=== PATIENT | female | born 1965 | race Caucasian/White ===

== ENCOUNTER 2020-05-28 15:11 | Emergency (ER) | payer OTHER ==
--- OUTSIDE RECORDS SUMMARY | 2020-05-28 15:14 | XMS REPORT | Clinical Summary ---
:1965 Author Organization [facility] Address [address] [place] [address] Care Team Providers Name Role Phone Can Gaston MD Primary Care Provider Allergies Active Allergy Reactions Severity Noted Date Comments Divalproex Swelling 11/29/2018 Shortness of br east and choking Valproate Sodium Swelling High 05/13/2018 Tongue swel ling Medications Medication Sig Dispensed Refills Start End Date Status Date gabapentin Take 400 mg by 0 Acti ve (NEURONTIN) 400 mg mouth 4 (four) capsule times a day. HYDROcodone-acetam Take 1 tablet by 0 Active inophen (NORCO) mouth every 4 10-325 mg per (four) hours as tabletIndications: needed for acute pain moderate pain .acute pain. atorvastatin Take 20 mg by 0 Act dillon (LIPITOR) 20 mg mouth daily. tablet Default OP ins escitalopram Take 20 mg by 0 Act dillon (LEXAPRO) 20 MG mouth daily. tablet carBAMazepine XR Take 500 mg by 0 Active (TEGretol XR) 100 mouth daily. MG 12 hr tablet dextroamphetamine- Take 30 mg by 0 Active amphetamine mouth 2 (two) (ADDERALL) 30 mg times a day. tablet DULoxetine Take 50 mg by 0 Activ e (CYMBALTA) 30 MG mouth daily. capsule ARIPiprazole Take 5 mg by 0 Acti ve (ABILIFY) 5 MG mouth daily. tablet ARIPiprazole Take 10 mg by 0 Act dillon (ABILIFY) 10 MG mouth daily. tablet pantoprazole Take 1 tablet 60 tablet 0 Act dillon (PROTONIX) 40 MG (40 mg total) by 0 EC tablet mouth 2 (two) times a day before meals. ferrous sulfate Take 1 tablet 60 tablet 0 Active 325 (65 FE) MG EC (325 mg total) 0 tablet by mouth 2 (two) times a day. fentaNYL Place 1 patch on 0 11/24/19 Dis continued (DURAGESIC) 100 the skin every 20 (Stop Taking at mcg/hrIndications: third day .acute Discharge) acute pain pain. lisinopriL Take 20 mg by 0 11/24/19 Disco ntinued (PRINIVIL) 20 mg mouth daily. 20 (Stop Taking at tablet Discharge) chlorproMAZINE Take 25 mg by 0 11/24/19 D iscontinued (THORAZINE) 25 MG mouth as needed 20 (Stop Taking at tablet for nausea. Discharg e) promethazine Take 20 mg by 0 11/24/19 Dis continued (PHENERGAN) 12.5 mouth every 6 20 (Stop Taking at MG tablet (six) hours as Disch arge) needed for nausea or vomiting. furosemide (LASIX) Take 30 mg by 0 0 Discontinued 20 mg tablet mouth as needed. 20 (Stop Taking at Discharge) pantoprazole Take 40 mg by 0 11/24/19 Dis continued (PROTONIX) 40 MG mouth 2 (two) 20 (Reorder) EC tablet times a day. polyethylene Take 17 g by 30 each 0 12/24/19 Expi red glycol (MIRALAX) mouth daily as 0 20 17 gram packet needed for constipation for up to 30 days. Active Problems Problem Noted Date GI bleed 11/22/2019 Encounters Date Type Specialty Care Team Description 11/26/2019 Patient Outreach Quality Elio Gardner Paola 11/26/2019 Patient Outreach Quality Elio Gardner Paola 11/26/2019 Patient Outreach Quality Gilma Renteria RN 11/25/2019 Patient Outreach Quality Gilma Renteria RN 11/22/2019 - Hospital Encounter Cardiology Chaves, Gastroint estinal 11/24/2019 MD Christiano hemorrhage with Rocio Zeng (Primary Dx) MD Elie 11/21/2019 Travel after 05/28/2019 Surgical History Surgery Date Site/Laterality Comments COLON SURGERY Medical History Medical History Date Comments Peptic ulceration Seizures (HCC) Hypertension Depression Family History Medical History Relation Name Comments Cancer Mother Relation Name Status Comments Mother Social History Tobacco Use Types Packs/Day Years Used Date Former Smoker Cigarettes 27 Sex Assigned at Date Recorded Not on file Last Filed Vital Signs Vital Sign Reading Time Taken Comments Blood Pressure 115/68 11/24/2019 7:56 AM CDT Pulse 81 11/24/2019 7:56 AM CDT Temperature 36.6 C (97.8 F) 11/24/2019 7:56 AM CDT Respiratory Rate 20 11/24/2019 7:56 AM CDT Oxygen Saturation 96% 11/24/2019 7:56 AM CDT Inhaled Oxygen Concentration - - Weight 84.9 kg (187 lb 1.6 oz) 11/24/2019 4:38 AM CDT Height 165.1 cm (5' 5") 11/22/2019 8:14 AM CDT Body Mass Index 31.14 11/22/2019 8:14 AM CDT Plan of Treatment Health Maintenance Due Date Last Done Comments COVID-19 VACCINE (1 of 2) 1983 CERVICAL CANCER SCREENING 1988 BREAST CANCER SCREENING 2017 COLONOSCOPY SCREENING 2017 SHINGLES VACCINES (#1) 2017 INFLUENZA VACCINE 12/06/2019 Procedures Procedure Name Priority Date/Time Associated Comments Diagnosis US DUPLEX VENOUS UPPER STAT 11/24/2019 3:31 R esults for this EXTREMITY LEFT AM CDT procedure are in the results section. ESTIMATED GFR Routine 11/24/2019 1:50 Results fo r this AM CDT procedure are i n the results section. BASIC METABOLIC PANEL Routine 11/24/2019 1:50 Re sults for this AM CDT procedure are i n the results section. HC COMPLETE BLD COUNT Routine 11/24/2019 1:50 Re sults for this W/AUTO DIFF AM CDT procedure are i n the results section. HC COMPLETE BLD COUNT Routine 11/23/2019 6:05 Re sults for this W/AUTO DIFF AM CDT procedure are i n the results section. ESTIMATED GFR Routine 11/23/2019 4:00 Results fo r this AM CDT procedure are i n the results section. BASIC METABOLIC PANEL Routine 11/23/2019 4:00 Re sults for this AM CDT procedure are i n the results section. POC GLUCOSE Routine 11/22/2019 11:48 Results for this AM CDT procedure are i n the results section. VITAMIN B12 LEVEL Routine 11/22/2019 10:19 Result s for this AM CDT procedure are i n the results section. TOTAL IRON BINDING Routine 11/22/2019 10:19 Resul ts for this CAPACITY AM CDT procedure are i n the results section. FERRITIN LEVEL Routine 11/22/2019 10:19 Results f or this AM CDT procedure are i n the results section. FOLATE LEVEL Routine 11/22/2019 10:19 Results for this AM CDT procedure are i n the results section. URINALYSIS SCREEN AND Routine 11/22/2019 9:15 Re sults for this MICROSCOPY, WITH REFLEX AM CDT proc edure are in TO CULTURE the results section. URINE CULTURE Routine 11/22/2019 9:15 Results fo r this AM CDT procedure are i n the results section. POC GLUCOSE Routine 11/22/2019 9:14 Results for this AM CDT procedure are i n the results section. PREPARE RBC STAT 11/22/2019 3:30 Results for this AM CDT procedure are i n the results section. ESTIMATED GFR Routine 11/22/2019 3:30 Results fo r this AM CDT procedure are i n the results section. TYPE AND SCREEN STAT 11/22/2019 3:30 Results for this AM CDT procedure are i n the results section. TROPONIN STAT 11/22/2019 3:30 Results for this AM CDT procedure are i n the results section. T4, FREE Routine 11/22/2019 3:30 Results for this AM CDT procedure are i n the results section. THYROID STIMULATING Routine 11/22/2019 3:30 Resu lts for this HORMONE AM CDT procedure are i n the results section. PHOSPHORUS LEVEL Routine 11/22/2019 3:30 Results for this AM CDT procedure are i n the results section. MAGNESIUM LEVEL Routine 11/22/2019 3:30 Results for this AM CDT procedure are i n the results section. COMPREHENSIVE METABOLIC Routine 11/22/2019 3:30 Results for this PANEL AM CDT procedure are i n the results section. PARTIAL THROMBOPLASTIN Routine 11/22/2019 3:30 R esults for this TIME (PTT) AM CDT procedure are i n the results section. PROTHROMBIN TIME WITH Routine 11/22/2019 3:30 Re sults for this INR AM CDT procedure are i n the results section. COVID-19 QUALITATIVE STAT 11/22/2019 3:30 Res ults for this PCR AM CDT procedure are i n the results section. COMPLETE BLD COUNT Routine 11/22/2019 2:53 Re sults for this W/AUTO DIFF AM CDT procedure are i n the results section. after 05/28/2019 Results Us duplex venous upper extremity (11/24/2019 3:31 AM CDT) Specimen Narrative Performed At [facility] Vascular U ltrasound Laboratory Upper Extr emity Venous Report [id number] [facility], [place] [address], [place] [address] Pat.Name: ANAMARIA ERICKSON Pat.ID: [id number] .Date: 11/24/2019 Refer.MD: ROCIO VILLANUEVA MD Exam Time: 3:16:00 AM Study Type:U E Venous Height: 65in Weight: 185lb BSA: 1.92 m2 Ag e: 1965,54Y Sex: FEMALE Sonogrphr: JOSE MIGUEL Darnell, RDCS, RVT Pat. Stat.:Inpatient Room: [address] Tape Vol: KG, CPT - 4: 68649 Echo Event ID:[id number] Order ID: [id number] Reason for Study:Left arm swelling and p ain, DVT suspected. Procedures: Colorflow, Grayscale/2D, Pul sed wave Doppler Race: C SUMMARY: DUPLEX SCAN OBSERVATIONS Right Left IJ Normal Subclavian Normal Normal Axillary Normal Brachial Normal Basilic Normal Cephalic Normal LEFT: There is normal compressibility an d no evidence of echogenic material noted within the lumen of the v isualized veins. Colorflow and Doppler signals are normal. PRELIMINARY FINDINGS 1. No evidence of venous thrombosis of t he visualized veins. PHYSICIAN INTERPRETATION Venous examination of the left upper ext remity and neck demonstrated no evidence of venous thrombosis. FINDINGS: Signed 11/24/2019 09:32 AM Fili Cowan MD, RPVI Procedure Note Interface, Radiology Results In - 2019 9:32 AM CDT Vascular Ultrasound Laboratory Upper Extremity Veno us Report [id number] [address] Pat.Name: ANAMARIA ERICKSON Pat.I D: [id number] .Date: 11/24/2019 Refer .MD: ROCIO VILLANUEVA MD Exam Time: 3:16:00 AM Study Type:UE Venous Height: 65in Weigh t: 185lb BSA: 1.92 m2 Age: 14 1965,54Y Sex: FEMALE Sonogrphr: JOSE MIGUEL Darnell, RDCS, RVT Pat. Stat.:Inpatient Room: [address] Tape Vol: KG, CPT - 4: 97470 Echo Event ID:[id number] Order ID: [id number] Reason for Study:Left arm swelling and p ain, DVT suspected. Procedures: Colorflow, Grayscale/2D, Pul sed wave Doppler Race: C SUMMARY: DUPLEX SCAN OBSERVATIONS Right Left IJ Normal Subclavian Normal Normal Axillary Normal Brachial Normal Basilic Normal Cephalic Normal LEFT: There is normal compressibility an d no evidence of echogenic material noted within the lumen of the v isualized veins. Colorflow and Doppler signals are normal. PRELIMINARY FINDINGS 1. No evidence of venous thrombosis of t he visualized veins. PHYSICIAN INTERPRETATION Venous examination of the left upper ext remity and neck demonstrated no evidence of venous thrombosis. FINDINGS: Signed 11/24/2019 09:32 AM Fili Cowan MD, RPVI Performing Organization Address City/[facility]/ZIP Code [facility] [address] [place] [address] Estimated GFR (11/24/2019 1:50 AM CDT)Only the most recent of3 resultswithin the time period is included. Estimated GFR 52 (A) mL/min/1.73 [facility] Comment: m2 HOSPITAL Catergory Units Interpretation G1 >=90 Normal or high G2 60-89 Mildly decreased G3a 45-59 Mildly to moderately decreas ed G3b 30-44 Moderately to severely decre ased G4 15-29 Severely decreased G5 <15 Kidney failure The eGFR was calculated using the Chronic Kidney Disea se Epidemiology Collaboration (CKD-EPI) equation. Interpretation is based on recommendations of the National Kidney Foundation-Kidney Disease Outcomes Kenny lity Initiative (NKF-KDOQI) published in 2014. Specimen Performing Organization Address [facility] e Number [facility] DEPARTMENT OF PATHOLOGY AND [address] [place], [place] [phone] [facility] [address] [place] [address] CBC with platelet and differential (11/24/2019 1:50 AM CDT)Only the most recent of3 resultswithin the time period is included. WBC 5.76 4.50 - 11.00 [facility] k/uL [facility] RBC 3.37 (L) 4.20 - 5.50 [facility] m/uL [facility] HGB 10.1 (L) 12.0 - 16.0 [facility] g/dL [facility] HCT 31.6 (L) 37.0 - 47.0 % [facility] MCV 93.8 82.0 - 100.[address] [facility] MCH 30.0 27.0 - 34.[address] [facility] MCHC 32.0 31.0 - 37.0 [facility] RDW - SD 54.7 37.0 - 55.[address] [facility] MPV 9.7 8.8 - 13.[address] [facility] Platelet count 355 150 - 400 k/uL [facility] Nucleated RBC 0.00 /[address] [facility] Neutrophils 49.5 39.0 - 69.0 % [facility] Lymphocytes 21.5 (L) 25.0 - 45.0 % [facility] Monocytes 24.5 (H) 0.0 - 10.0 % [facility] Eosinophils 3.0 0.0 - 5.0 % [facility] Basophils 0.5 0.0 - 1.0 % [facility] Immature granulocytes 1.0Comment: 0.0 - 1.0 % [facility] "Immature HOSPITAL granulocytes" (promyelocytes , myelocytes, metamyelocytes ) Specimen Blood Performing Organization Address City/[facility] Phon e Number [facility] DEPARTMENT OF PATHOLOGY AND [address] [place] [address] [phone] [address] Basic metabolic panel (11/24/2019 1:50 AM CDT)Only the most recent of2 results within the time period is included. Pathologist Sig nature Sodium 138 135 - 148 mEq/L [facility] Potassium 4.1 3.5 - 5.0 mEq/L [facility] Chloride 111 98 - 112 mEq/L [facility] CO2 17 (L) 24 - 31 mEq/L [facility] Anion gap 10@ANIO 7 - 15 mEq/L [facility] BUN 8 6 - 20 mg/dL [facility] Creatinine 1.20 (H) 0.50 - 0.90 mg/dL [facility] Glucose 105 (H) 65 - 99 mg/dL [facility] Calcium 7.4 (L) 8.3 - 10.2 mg/dL [facility] Specimen Blood Performing Organization Address City/[facility] Phon e Number [facility] DEPARTMENT OF PATHOLOGY AND [address] [place], [place] [address] [address] [address] POC glucose (11/22/2019 11:48 AM CDT)Only the most recent of2 resultswithin the time period is included. Pathologist Sig nature POC glucose 94 65 - 99 mg/dL [facility] Comment: HOSPITAL Bone Char Operator Name: Mark Galindo Device ID: [id number] Chartable: [facility] Notified RN Specimen Blood Performing Organization Address City/[facility]/ZIP [facility] Phon e Number [facility] DEPARTMENT OF PATHOLOGY AND [address] [place] [address] [phone] [address] Total iron binding capacity (11/22/2019 10:19 AM CDT) Pathologist Sig nature Iron level 11 (L) 37 - 145 ug/dL [facility] Iron binding capacity 182 (L) 200 - 400 ug/dL [facility] % Saturation 6.0 (L) 15.0 - 38.0 % [facility] Specimen Blood Performing Organization Address City/[facility] Phon e Number [facility] DEPARTMENT OF PATHOLOGY AND [address] [place] [address] [phone] [address] Folate level (11/22/2019 10:19 AM CDT) Pathologist Sig nature Folate >20.0 4.8 - 24.2 ng/mL [facility] Specimen Serum Performing Organization Address City/[facility] Phon e Number [facility] DEPARTMENT OF PATHOLOGY AND [address] [place] [address] Ferritin level (11/22/2019 10:19 AM CDT) Pathologist Sig nature Ferritin level 66 13 - 150 ng/mL [facility] Specimen Blood Performing Organization Address City/[facility] Phon e Number [facility] DEPARTMENT OF PATHOLOGY AND [address] [place] [address] [phone] [address] Vitamin B12 level (11/22/2019 10:19 AM CDT) Pathologist [facility] Vitamin B12 1,346 (H) 211 - 946 [facility] Comment: pg/mL HOSPITAL Significant overlap exists between normal and deficien cy states. However, most patients with deficiencies will have Ser um B12 <200 pg/mL. Specimen Serum Performing Organization Address City/[facility] Phon e Number [facility] DEPARTMENT OF PATHOLOGY AND [address] [place], [place] [address] [address] [place] [phone] Urinalysis screen and microscopy, with reflex to culture (11/22/2019 9:15 AM CDT) Specimen site Clean catch [facility] Color, UA Yellow [facility] Appearance, UA Clear [facility] Specific gravity, UA 1.018 1.001 - 1.035 [facility] pH, UA 5.0 5.0 - 8.5 [facility] Protein, UA Negative Negative [facility] Glucose, UA Negative Negative [facility] Ketones, UA Negative Negative [facility] Bilirubin, UA Negative Negative [facility] Blood, UA Negative Negative [facility] Nitrite, UA Negative Negative [facility] Urobilinogen, UA <2.[address] <[address]0 [facility] Leukocyte esterase, Negative Negative [facility] Epithelial cells, UA <1 /HPF [facility] WBC, UA 3 0 - 4 /HPF [facility] RBC, UA <1 0 - 5 /HPF [facility] Bacteria, UA None seen None seen [facility] Yeast, UA None seen [facility] Yeast with None seen [facility] pseudohyphae, [facility] Hyaline casts, UA 4 /LPF [facility] Specimen Urine Performing Organization Address City/[facility] Phon e Number [facility] DEPARTMENT OF PATHOLOGY AND [address] [place] [address] [address] Urine culture (11/22/2019 9:15 AM CDT) Pathologist Sig nature Urine culture SEE COMMENTComment: [facility] Bacteriuria screen HOSPITAL negative. Specimen Performing Organization Address [facility] Phon e Number [facility] DEPARTMENT OF PATHOLOGY AND [address] [place] [address] [address] COVID-19 qualitative PCR (11/22/2019 3:30 AM CDT) Interpretation Negative results do not prec lude 2019-nCoV infection and should not be used as the sole basis for treatment or other patient management decisions. Negative results must be combined with clinical observations, patient history, and epidemiological [facility] information. [facility] COVID-19 qualitative Not-Detected Not-Detecte [facility] PCR result d [facility] COVID-19 qualitative See link below for [facility] PCR PDF Lab [facility] ReportComment: Case HOSPITAL Number: [id number] Specimen Nasopharyngeal swab Performing Organization Address City/[facility] Phon e Number [facility] DEPARTMENT OF PATHOLOGY AND [address] [place], [place] [phone] [facility] [address] [place] [address] [facility] Troponin (11/22/2019 3:30 AM CDT) [facility] Troponin <0.006 0.000 - 0.040 [facility] Comment: ng/mL HOSPITAL In patients suspected of having a myocardial infarctio n, along with all other appropriate clinical measures and actions includ ing ECG and other diagnostics as appropriate, measure Ultra TnI at 0 hrs and at 3 hrs. Myocardial infarction VERY LIKELY The 0 hr TnI level is > 0.10 ng/mL Myocardial infarction LIKELY The 0 hr TnI level is > 0.04 ng/mL and 3 hr level is i ncreased or decreased by at least 0.020 ng/mL Myocardial infarction VERY UNLIKELY Both the 0 hr and 3 hr TnI levels <= 0.04 ng/mL(within normal limits) OR 0 hr is > 0.04 ng/mL and 3 hr is increased OR decreased by less than 0.020 ng/mL Specimen Blood Performing Organization Address City/State/ZIP Code Phon e Number [facility] DEPARTMENT OF PATHOLOGY AND [address] [place], [place] [phone] [facility] [address] [place] [address] Partial thromboplastin time, activated (11/22/2019 3:30 AM CDT) [facility] PTT 47.8 (H) 23.0 - 36.0 [facility] Comment: [facility] PTT therapeutic range for unfractionated heparin is 61.0-112.0 seconds which corresponds to Anti-Xa 0.3-0.7 U/ml. Specimen Blood Performing Organization Address [facility] Phon e Number [facility] DEPARTMENT OF PATHOLOGY AND [address] [place] [address] [phone] [address] Prothrombin time with INR (11/22/2019 3:30 AM CDT) Prothrombin time 19.3 (H) 11.5 - 14.5 [facility] INR 1.6 [facility] Comment: [facility] International Normalized Ratio (INR) is a [facility] monitoring tool for patients who are stable on oral anticoagulant therapy. An INR of 2.0-3.0 is suggested for deep vein thrombosis/pulmonary embolism. Specimen Blood Performing Organization Address [facility] Phon e Number [facility] DEPARTMENT OF PATHOLOGY AND [address] [place] [address] [phone] [address] Prepare RBC, 4 Units (11/22/2019 3:30 AM CDT) Product name Apheresis Red Cell [facility] AS3 #2 [facility] Unit number [id number] [facility] Product code [id number] [facility] Dispense status Transfused [facility] Blood expiration date [facility] Blood type code 0600 [facility] Blood type A NEGATIVE [facility] Compatibility Compatible [facility] Product name Red Blood Cells [facility] -1, Leukored [facility] Unit number [id number] [facility] Product code [id number] [facility] Dispense status Transfused [facility] Blood expiration date [facility] Blood type code 0600 [facility] Blood type A NEGATIVE [facility] Compatibility Compatible [facility] Specimen Blood Performing Organization Address [facility] Phon e Number [facility] DEPARTMENT OF PATHOLOGY AND [address] [place] [address] [phone] [address] Type and screen (11/22/2019 3:30 AM CDT) Pathologist Sig nature ABO grouping A [facility] Rh type NEG [facility] Antibody screen (gel) NEG [facility] Specimen Blood Performing Organization Address City/State/ZIP Code Phon e Number [facility] DEPARTMENT OF PATHOLOGY AND [address] [place] [address] [phone] [address] Thyroid stimulating hormone (11/22/2019 3:30 AM CDT) Pathologist Sig nature TSH 1.30 0.27 - 4.20 uIU/mL [facility] ITAL Specimen Blood Performing Organization Address City/State/ZIP Code Phon e Number [facility] DEPARTMENT OF PATHOLOGY AND [address] [place] [address] [phone] [address] T4, free (11/22/2019 3:30 AM CDT) Pathologist Sig nature T4, free 1.4 0.9 - 1.7 ng/dL [facility] L Specimen Blood Performing Organization Address City/[facility]/ZIP [facility] Phon e Number [facility] DEPARTMENT OF PATHOLOGY AND [address] [place] [address] [phone] [address] Phosphorus level (11/22/2019 3:30 AM CDT) Pathologist Sig nature Phosphorus 4.0 2.4 - 4.5 mg/dL [facility] L Specimen Blood Performing Organization Address City/[facility]/ZIP Code Phon e Number [facility] DEPARTMENT OF PATHOLOGY AND [address] [place] [address] [phone] [address] Magnesium level (11/22/2019 3:30 AM CDT) Pathologist Sig nature Magnesium 1.8 1.6 - 2.6 mg/dL [facility] L Specimen Blood Performing Organization Address City/State/ZIP Code Phon e Number [facility] DEPARTMENT OF PATHOLOGY AND [address] [place] [address] [phone] [address] Comprehensive metabolic panel (11/22/2019 3:30 AM CDT) Sodium 133 (L) 135 - 148 [facility] mEq/L [facility] Potassium 3.6 3.5 - 5.0 [facility] mEq/L [facility] Chloride 104 98 - 112 [facility] mEq/L [facility] CO2 16 (L) 24 - 31 mEq/L [facility] Anion gap 13@ANIO 7 - 15 mEq/L [facility] BUN 21 (H) 6 - 20 mg/dL [facility] Creatinine 1.29 (H) 0.50 - 0.90 [facility] mg/dL HOSPITAL Glucose 96 65 - 99 mg/dL [facility] Calcium 7.7 (L) 8.3 - 10.2 [facility] mg/dL [facility] Protein 4.9 (L) 6.3 - 8.3 [facility] Comment: g/dL HOSPITAL - 4.6-7.0 g/dL 1 week 4.4-7.6 g/dL 7 months-1year 5.1-7.3 g/dL 1-2 years 5.6-7.5 g/dL >3 years 6.0-8.0 g/dL 18-150 6.3-8.3 g/dL Albumin 1.7 (L) 3.5 - 5.0 [facility] g/dL [facility] A/G ratio 0.5 (L) 0.7 - 3.8 [facility] Alkaline phosphatase 82 35 - 104 U/L [facility] AST 27 10 - 35 U/L [facility] ALT 26 5 - 50 U/L [facility] Total bilirubin <0.2 0.0 - 1.2 [facility] mg/dL HOSPITAL Specimen Blood Performing Organization Address City/State/ZIP Code Phon e Number [facility] DEPARTMENT OF PATHOLOGY AND [address] [place] [address] [phone] 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
--- OUTSIDE RECORDS SUMMARY | 2020-05-28 15:19 | XMS REPORT ---
:1965 Author Organization [facility] Address [address] [place] 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 Problem Non-seasonal J30.89 Active 09726795 allergic rhinitis, unspecified trigger Problem Adenocarcinoma of C18.9 Active 283171212 colon Problem Irritable bowel K58.1 Active 180409086 syndrome with constipation Problem Current severe F32.2 Active 13697855 episode of major depressive disorder without psychotic features without prior episode Problem Bipolar affective F31.32 Active 671106279 disorder, currently depressed, moderate Problem Primary C25.0 Active [id number] adenocarcinoma of head of pancreas Problem 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), predominantly inattentive type Problem Agranulocytosis D70.1 Active 54728861 secondary to cancer chemotherapy Problem Malignant neoplasm C25.2 Active 249757356 of tail of pancreas Problem Malignant neoplasm C25.0 Active 218695323 of head of pancreas Problem Generalized F41.1 Active 20777499 anxiety disorder Problem Primary insomnia F51.01 Active 1794644 Problem Grand mal seizure G40.409 Active 18409073 Problem Essential I10 Active 59105267 hypertension Problem GERD without K21.9 Active 795636816 esophagitis Problem Polyneuropathy G62.81 Active 527810821 associated with critical illness Problem Adenocarcinoma of C18.4 Active 44128898 transverse colon Problem 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.3 Active 316662545 Problem Mixed E78.2 Active 791418043 hyperlipidemia Problem RLS (restless legs G25.81 Active 33499042 syndrome) Problem Fibromyalgia M79.7 Active 636514665 ALLERGIES Allergen (clinical drug Drug/Non Drug Allergy Reaction Allergy Type Onset Date Status ingredient) documented on EMR valproate Depakote([facility] Unknown Drug Allergy Active Code:[address]-90) ENCOUNTERS from 1965 to 2020-03-08 Encounter Location Date Provider Diagnosis [facility] [address] [place] Mar, [facility] Coker Malignant neoplasm of Drive [facility] [address] head of pancrea s C25.0 ; [place] [phone] transverse colo n C18.4 ; Attention defic it hyperactivity d isorder (ADHD), predomi nantly inattentive typ e F90.0 ; Primary adenoca rcinoma of head of pancrea s C25.0 ; Agranulocytosis secondary to cancer chemo therapy D70.1 ; Bipolar affective disorder, curre ntly depressed, mode rate F31.32 ; Curren t severe episode of ravi r depressive diso rder without psychot ic features withou t prior episode F32.2 ; Primary insomnia F51.01 ; Grand mal seizure G40 .409 ; Rectal prolapse K62.3 ; Polyneuropathy associated with critical i llness G62.81 ; Cancer associated pain G89.3 ; Colostomy in pl evan Z93.3 ; Nonintractabl e generalized idi opathic epilepsy withou t status epilepticus G40 .309 ; Essential hyper tension I10 ; Generaliz ed anxiety disorder F41.1 ; Mixed hyperlipidemia E78.2 ; Fibromyalgia M7 9.7 ; Perforation of colon K63.1 ; Irritab le bowel syndrome with constipation K5 8.1 ; RLS (restless legs syndrome) G25.81 ; GERD w ithout esophagitis K21 .9 ; Adverse effect of antineoplastic and immunosuppressi ve drugs, initial encount er T45.1X5A ; Naus ea R11.0 ; Non-seasonal al lergic rhinitis, unspe cified trigger J30.89 and Former heavy tobacco s moker Z87.891 IMMUNIZATIONS No Information SOCIAL HISTORY Tobacco Use: Social History Observation Description Date Details (start date - stop date) Former Smoker Sex Assigned At : Social History Observation Description Sex Assigned At Unknown PHQ9 Question Answer Notes Little interest or pleasure in doing things More than half t he days Feeling down, depressed, or hopeless Nearly every day Trouble falling or staying asleep or sleeping too Nearly keshia ry day much Feeling tired or having little energy Nearly every day Poor appetite or overeating More than half the days Feeling bad about yourself, or that you are a Nearly every d ay failure, or have let yourself or your family down Trouble concentrating on things, such as reading More than h evie the days the newspaper or watching television Moving or speaking so slowly that other people Several days could have noticed; or the opposite, being so fidgety or restless that you have been moving around a lot more than usual Total Score 19 Interpretation Moderately severe depression Thoughts that you would be better off or of Not at all hurting yourself in some way Alcohol Screen Question Answer Notes Did you have a drink containing alcohol in the past year? No Points 0 Interpretation Negative Tobacco Use/Smoking Question Answer Notes Are you a former smoker Sexual History Question Answer Notes Had sex in the past 12 months (vaginal, oral, or anal)? No Last menstrual period 40 yrs REASON FOR REFERRAL No Information VITAL SIGNS Height 64.5 in Mar, Weight 170 lbs Mar, Temperature 98 degrees Fahrenheit Mar, BMI 28.73 kg/m2 Mar, Blood pressure systolic 130 mm Hg Mar, Blood pressure diastolic 71 mm Hg Mar, MEDICATIONS Medication SIG (Take, Route, Start Date End Date Status Frequency, Duration) Escitalopram Oxalate 20 MG 1 tablet Orally Once a day Active for 90 days Ventolin HFA 108 (90 Base) 1 puff as needed Inhalation Active MCG/ACT every 4 hrs Creon 97318 UNIT 2 capsule Orally three A ctive times a day Ropinirole HCl 1 MG 1 tablet 1 to 3 hours Active before bedtime Orally Once a day for 90 days Gabapentin 400 MG 1 capsule Orally three Active times a day for 90 days Lisinopril 20 MG 1 tablet Orally Once a day Active for 90 days Rosuvastatin Calcium 10 MG 1 tablet Orally Once a day Active for 90 days Eszopiclone 2 MG 1 tablet immediately before Active bedtime Orally Once a day for 30 days Fentanyl 100 MCG/HR 1 patch to skin Transdermal Active Amphetamine-Dextroamphetamine 1 tablet Orally Twice a day Mar, 020 Active 30 MG for 30 days Carbamazepine 200 MG 1 tablet Orally Twice a day Active for 90 days Omeprazole 20 MG 1 capsule 30 minutes before Active morning meal Orally Once a day Montelukast Sodium 10 MG 1 tablet Orally Once a day Active Ondansetron 8 MG 1 tablet on the tongue and Active allow to dissolve as needed Orally twice a day PROCEDURES No Information RESULTS No Results REASON FOR VISIT 4 wk f/u MEDICAL (GENERAL) HISTORY Type Description Date Medical History bipolar disorder Medical History hypercholesterolemia Medical History kidney stones Medical History cancer Medical History depression Medical History hypertension Medical History anxiety Medical History irritable bowel syndrome Medical History seizures Medical History ulcers Surgical History perforation Colostomy bag 2017 Surgical History hysterectomy 2004 Surgical History tonsillectomy 1976 Goals Section No Information Health Concerns No Information MEDICAL EQUIPMENT No Information MENTAL STATUS No Information FUNCTIONAL STATUS No Information ASSESSMENTS Encounter Date Diagnosis Notes Mar, Colostomy in place (ICD-10 - Z93.3) Mar, Cancer associated pain (ICD-10 - G89.3) Mar, Essential hypertension (ICD-10 - I10) Mar, Nonintractable generalized idiopathic ep ilepsy without status epilepticus (ICD-10 - G40.309) Mar, Grand mal seizure (ICD-10 - G40.409) Mar, Primary insomnia (ICD-10 - F51.01) Mar, Polyneuropathy associated with critical illness (ICD-10 - G62.81) Mar, Rectal prolapse (ICD-10 - K62.3) Mar, Mixed hyperlipidemia (ICD-10 - E78.2) Mar, Generalized anxiety disorder (ICD-10 - F 41.1) Mar, Adenocarcinoma of transverse colon (ICD- 10 - C18.4) Mar, Nausea (ICD-10 - R11.0) Mar, Malignant neoplasm of head of pancreas ( ICD-10 - C25.0) Mar, Adverse effect of antineoplastic and imm unosuppressive drugs, initial encounter (ICD-10 - T45.1X5A) Mar, Primary adenocarcinoma of head of pancre as (ICD-10 - C25.0) Mar, Former heavy tobacco smoker (ICD-10 - Z8 7.891) Mar, Attention deficit hyperactivity disorder (ADHD), predominantly inattentive type (ICD-10 - F90.0) Mar, Non-seasonal allergic rhinitis, unspecif ied trigger (ICD-10 - J30.89) Mar, Irritable bowel syndrome with constipati on (ICD-10 - K58.1) Mar, Perforation of colon (ICD-10 - K63.1) Mar, GERD without esophagitis (ICD-10 - K21.9 ) Mar, RLS (restless legs syndrome) (ICD-10 - G 25.81) Mar, Bipolar affective disorder, currently de pressed, moderate (ICD-10 - F31.32) Mar, Agranulocytosis secondary to cancer chem otherapy (ICD-10 - D70.1) Mar, Current severe episode of major depressi ve disorder without psychotic features without prior episode (ICD-10 - F32.2) Mar, Fibromyalgia (ICD-10 - M79.7) PLAN OF TREATMENT Medication Medication Name Sig Start Date Stop Date Gabapentin 400 MG 1 capsule Orally three times a day for 90 days Omeprazole 20 MG 1 capsule 30 minutes before morning meal Orally Once a day Ropinirole HCl 1 MG 1 tablet 1 to 3 hours before bedtime Orally Once a day for 90 days Creon 84485 UNIT 2 capsule Orally three times a day Rosuvastatin Calcium 10 MG 1 tablet Orally Once a day for 90 days Escitalopram Oxalate 20 MG 1 tablet Orally Once a day for 90 days Eszopiclone 2 MG 1 tablet immediately before bedtime Orally Once a day for 30 days Ventolin HFA 108 (90 Base) 1 puff as needed Inhalation MCG/ACT every 4 hrs Amphetamine-Dextroamphetamine 30 1 tablet Orally Twice a day Mar, MG for 30 days Montelukast Sodium 10 MG 1 tablet Orally Once a day Lisinopril 20 MG 1 tablet Orally Once a day for 90 days Fentanyl 100 MCG/HR 1 patch to skin Transdermal Carbamazepine 200 MG 1 tablet Orally Twice a day for 90 days Ondansetron 8 MG 1 tablet on the tongue and allow to dissolve as needed Orally twice a day Treatment Notes Assessment Notes Clinical Notes Essential hypertension . Controlled with current regimen. Education given. , DASH Diet discussed. Instructed to measure BP at home and bring in log to f/u appt. Instructions and logs given. Education given. HTN Education This is a condition that puts at risk for heart attack, stroke, and kidney disease. Lifestyle modification, low fat/low salt diet, exercise, low alcohol intake and medication is utilized to help control your BP. Untreated HTN increases the strain on the heart and arteries, eventually causing organ damage.Normal BP is less than 140/90. High BP is greater than 140/90. If your BP is not controlled, call your doctor. Medication may need to be adjusted and/or added. Compliance with medication is vital. If you have chest pain, shortness of breath, severe nausea/vomiting, fatigue, and other symptoms, you will need to contact your doctor or go to the ER immediately to address. Malignant neoplasm of head of Managed by MD Loredo Chemo s tarted. pancreas Colostomy in place Managed by GI. Care done by home. Former heavy tobacco smoker . Commended on cessation Adenocarcinoma of transverse Managed by MD L[facility] colon Mixed hyperlipidemia . Continue current regimen. Refill given. Side effect panel discussed. , Hyperlipidemia Education: Hyperlipidemia refers to increased levels of lipids(fats) in the blood, including cholesterol and triglycerides. This can significantly increase your risk of developing coronary artery disease and peripheral artery disease. This can cause chest pain, heart attack, stroke, and fatigue. Treatment is recommended to decrease your risk. Treatment includes: lifestyle modification, low salt/low fat diet, exercise, tobacco cessation, low alcohol intake and sometimes medication. Blood tests (TC,TG, HDL, LDL) are utilized to determine treatment regimens. TC(Total cholesterol) should be below 200. TG(Total Triglycerides) should be below 150. HDL(Good cholesterol) should be above 40. LDL(Bad Cholesterol) should be below 130(if you have one risk factor) or less than 100( if you have more than one risk factor or have DM/CAD/PVD). Compliance with medication and treatment is vital. If you have questions, talk to your doctor. Attention deficit hyperactivity . Meets criteria. Rx monitor . Referral to psychiatry disorder (ADHD), predominantly Refill given. , Extensively inattentive type discussed side effect panel. Patient acceptable of risks. Will monitor closely. Rx monitored. -- Taking the medication exactly as prescribed (both the dose and the frequency) -- Letting the clinician know if the medication does not seem to be working -- Avoiding alcohol, tobacco, marijuana, and other illicit substances (may interact with stimulants and exacerbate attentional problems) -- Keeping the medication in a safe location-and not being coerced/tempted into selling it or giving it Generalized anxiety disorder . Stable with current regimen. Education given. , -- Anxiety Education: Anxiety is a feeling of anxiousness or nervousness. Being extremely anxious or worried on most days for 6 months or longer is not normal. This is a type of anxiety disorder. This disorder can make it hard to do everyday tasks. Other types of anxiety include: post traumatic stress disorder, panic disorder, and phobias. Symptoms of anxiety may include: feeling worried or on the edge, trouble sleeping, or forgetting things. Feelings of stomach aches or chest tightness is another common symptom. Medicine, exercise, and other treatments like counseling, talk therapy, yoga, and massages maybe necessary to treat this disorder. Primary adenocarcinoma of head Managed by MD L[facility] of pancreas Perforation of colon Managed by surgeon. Agranulocytosis secondary to Managed by MD L[facility]o cancer chemotherapy Fibromyalgia . Stable with gabapentin Bipolar affective disorder, . In process of enrolling to Re ferral to psychiatry currently depressed, moderate psychiatry. Education given RLS (restless legs syndrome) . Stable with current regimen. Education given. Discussed supportive measures for symptomatic relief. Refill given Current severe episode of major . Refill given. Side effect depressive disorder without panel discussed. Education psychotic features without givenm. , -- Depression prior episode Education: Depression is a brain disease that makes you sad, but it is different than normal sadness. Depressed people feel down most of the time for at least 2 weeks. They also have at least one of these 2 symptoms: 1. They no longer enjoy or care about doing the things they used to like to do. 2. They feel sad, down, hopeless, or cranky most of the day, almost every day. It can also make you: lose or gain weight; sleep too much or too little; fell tired or like you have no energy; feel guilty or like you are worth nothing; forget things or feel confused; and think about or suicide. Medication and/or seeing a counselor (such as a psychiatrist, psychologist, nurse or elementary school social worker) may be necessary to treat depression. Both treatments take time to work. If you ever feel like you might hurt yourself or some else, then call your doctor or call 911 or go to the ER. Irritable bowel syndrome with . Colostomy in place constipation GERD without esophagitis . Discussed long-term impact of PPI usage. Education given Cancer associated pain . Managed by pain management Non-seasonal allergic rhinitis, . Stable with current unspecified trigger regimen Polyneuropathy associated with . Stable with current critical illness regimen. Education given. Side effect panel discussed. Refill given Nausea . Managed by oncology and pain management Primary insomnia . Discussed good sleep . referral to ps ychiatry hygiene extensively with patient. Education given. Rx monitor. Refill given. Side effect panel discussed Grand mal seizure . Stable with current regimen. Encouraged to make appointment with neurology. Patient vocalized understanding Rectal prolapse . Managed by GI and colorectal surgeon Next Appt Details 4 Weeks TV Reason: Provider Name:[facility] John Paul, 2020-04-07 1 0:10:00 AM, [address] Thakur, [address], [place], [address], Insurance Providers Payer Name Payer Address Payer Insured Patient Coverage Cover age Phone Name Relationship to Start Date End Date Insured MEDICARE Attn Part B [id number] Sindhu WilliamsonITAS Claims [address] [address] [facility] [address] [address]
--- OUTSIDE RECORDS SUMMARY | 2020-05-28 15:19 | XMS REPORT | Continuity of Care Document ---
:1965 Author Organization [facility] t Address [address] [place] [address] Care Team Providers Name Role Phone Luis A KIM Primary Care Physician Unavailable BHARATI Attending Clinician Unavailable ALENA Attending Clinician Unavailable Singer LOBATO Attending Clinician Rhea HE[employer] INFORMATION CODER, S Attending Clinician Luis A Kim MD Attending Clinician Lio MA Attending Clinician Doctor Unassigned, Name Attending Clinician Unavailable Simon Griffiths DDS Attending Clinician Naresh DDOfe Attending Clinician Maryann DDS Attending Clinician Jennifer Gant, K Attending Clinician Unavailable Haroon HOBSON, R Attending Clinician Unavailable Art Hernandez Attending Clinician Unavailable Cristofer FARRAR Attending Clinician Jeremy Denson MA Attending Clinician Blas Barrow MD Attending Clinician Genesis FARRAR Attending Clinician Thor RN, M Attending Clinician Unavailable Chris HARGROVE Attending Clinician Chambers DMD, S Attending Clinician Jorge HOBSON Attending Clinician Unavailable Amol SERRANO, L Attending Clinician Ayo DO, J Attending Clinician Desean HOBSON Attending Clinician Unavailable Kathleen Jacobsen MD Attending Clinician Nikia FARRAR Attending Clinician Yeny PEREZ Attending Clinician Jhon FARRAR Attending Clinician Annika SERRANO, J Attending Clinician Grace HARGROVE Attending Clinician David Aguiar MD Attending Clinician Simon Greene MD Attending Clinician Arvin HOBSON, N Attending Clinician Unavailable Dustin HOBSON Attending Clinician Unavailable Luis A KIM Attending Clinician Unavailable Kendra [facility] Attending Clinician Unavailable Dexter HOBSON Attending Clinician Unavailable Alexandria HARGROVE Attending Clinician Andie FARRAR Attending Clinician Stacey FARRAR, [facility] Attending Clinician Alber FARRAR Attending Clinician Ofe Cox MD Attending Clinician Annemarie HOBSON, Kat Attending Clinician Unavailable Bharati HARGROVE Attending Clinician Aleks HOBSON Attending Clinician Unavailable Lawrence FERRO Attending Clinician Unavailable Keanu Herrera MD Attending Clinician LORAINE Attending Clinician Unavailable Mary SANZ Attending Clinician Cammy HARGROVE Attending Clinician CAMMY Attending Clinician Unavailable JUNE Attending Clinician Unavailable June HARGROVE Attending Clinician Unavailable EDGAR Attending Clinician Unavailable Edgar HARGROVE Attending Clinician Jimmie HOBSON, Mikel Attending Clinician Unavailable Jeremy Tinsley Attending Clinician Jeancarlos Puga MD Attending Clinician Sidney HOBSON, Hailey Franklin Attending Clinician Alfonso HOBSON, C Attending Clinician Unavailable Olvin HOBSON, A Attending Clinician Unavailable Rigoberto HOBSON, D Attending Clinician Unavailable Faith FARRAR R Attending Clinician Simon SINGH, M Attending Clinician 3, Adult Infusion Nurse Attending Clinician Unavailable 1, Lab Attending Clinician Unavailable CHRISTIN Attending Clinician Unavailable ANDIE Admitting Clinician Unavailable Payers Payer Name Policy Policy Number Effective Expiration Source Type Date Date MEDICARE PART A AND B [id number] 2011 00:00:00 MEDICAREMEDICARE PART [id number] 2011 Ho maninder A AND 00:00:00 Church [id number] 2011 [place] [facility]IN[place] LIFE [id number] 2019 Minda ston INS CO OF 00:00:00 Church 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 18 Anderso transverse transverse 00:00: n colon colon 00 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: 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 py py Anxiety Anxiety Disease Active 2019-0 1- Anderso 00:00: n 00 Attention Attention Disease Active 2018-0 MD deficit deficit 05-13 Anderso hyperactiv hyperactiv 00:00: n ity ity 00 disorder disorder Fibromyalg Fibromyalg Disease Active 2018-0 M D ia ia 05-13 Anderso 00:00: n 00 Malignant Malignant Disease Active 2019-0 MD neoplasm neoplasm 05-09 Sandro o of head of of head of 00:00: n pancreas pancreas 00 Allergies, Adverse Reactions, Alerts Allergy Allergy Status Severity Reaction(s) Onset Inactive Treating Comm ents Source Name Type Date Date Clinician divalpro DA Active SV 2019- [facility] ex 11-09 [place] sodium 00:00: [facility] 00 [facility] DIVALPRO DRUG Active Swelling 2019-0 MD EX 7 Anderso 00:00: n 00 DIVALPRO DRUG Active Swelling 2019-0 MD EX 7 Anderso 00:00: n 00 DIVALPRO DRUG Active Swelling 2019-0 MD EX 7 Anderso 00:00: n 00 DIVALPRO DRUG Active Swelling 2019-0 MD EX 7 Anderso 00:00: n 00 DIVALPRO DRUG Active Swelling 2019-0 MD EX 7 Anderso 00:00: n 00 DIVALPRO DRUG Active Swelling 2019-0 MD EX 7 Anderso 00:00: n 00 DIVALPRO DRUG Active Swelling 2019-0 MD EX 7 Anderso 00:00: n 00 DIVALPRO DRUG Active Swelling 2019-0 MD EX 7 Anderso 00:00: n 00 DIVALPRO DRUG Active Swelling 2019-0 MD EX 7 Anderso 00:00: n 00 DIVALPRO DRUG Active Swelling 2019-0 MD EX 7 Anderso 00:00: n 00 Divalpro Propensi Active Swelling 2019-0 Shortness [place] ex ty to 11-29 of breast Methodi adverse 00:00: and st reaction 00 choking s to drug Valproat Propensi Active Swelling 2019-0 [place]ue [place] Sodium ty to 05-13 swelling Method i adverse 00:00: st reaction 00 s to drug No Known DA Active U [facility] Allergie 2- [place] s 00:00: Regiona 00 [facility] Depakote Adverse Active Info Not [facility] Reaction [facility] Family History Family Member Diagnosis Comments Start Date Stop Date Source Natural mother Cancer [facility] Natural mother -Colon cancer MD Marcello sarabia Natural mother -Liver cancer MD Marcello sarabia Natural mother -Pancreatic cancer MD [place] Social History Social Habit Start Date Stop Date Quantity Comments Source Sex Assigned At MD Jo on Exposure to Not sure MD [place] SARS-CoV-2 (event) Cigarettes smoked 2020-05-13 2020-05-13 MD Marcello sarabia current (pack per 00:00:00 00:00:00 day) - Reported Cigarette pack-years 2020-05-13 2020-05-13 MD Mikel galvan 00:00:00 00:00:00 Tobacco use and 2020-05-13 2020-05-13 Never used MD Jo on exposure 00:00:00 00:00:00 Alcohol intake 2020-05-13 2020-05-13 Ex-drinker MD Roque rothman 00:00:00 00:00:00 (finding) Tobacco Comment 2020-03-09 2020-03-09 quit smoking Evelyn MD [place] 00:00:00 00:00:00 2019 History of tobacco 1992-10-09 2019-10-21 Current smoker MD [place] use 00:00:00 00:00:00 Smoking Status Start Date Stop Date Source Former smoker 2020-05-13 00:00:00 2020-05-13 00:00:00 MD Rangel son Medications Ordered Filled Start Stop Current Ordering Indication Dosage Frequency Signature Comments Components Source Medication Medication Date Date Medication? Clinician (SIG) Name Name dextroamphe Yes 30mg Take 30 mg tamine-amph -12 by mouth Marcello rsblaise etamine 30 18:02: twice n mg tab 54 daily. multivitami Yes 1{capsu Take 1 M D n capsule 1-12 le} capsule by Marcello rso 18:02: mouth n 54 daily. rOPINIRole Yes 1 tablet 1 M D (Requip) 1-12 to 3 hours Juan Carlos so 0.25 mg 18:02: before n tablet 54 bedtime ondansetron Yes 1 tablet MD HCl in 0.9 1-12 on the Anderso % NaCl 18:02: tongue and n (ondansetro 54 allow to n in 0.9 % dissolve sod chlor) as needed 16 mg/100 mL pgbk fentaNYL Yes 1{patch Place 1 MD (DURAGESIC) 1-12 } patch on Marcello rso 100 mcg/hr 18:02: the skin n transdermal 54 every 72 patch hours. Remove old patch(es) before replacing new patch(es). pancrelipas Yes Primary [id number] Take 2 MD e (Creon) 1-12 adenocarcin capsules Anderso 12,000 00:00: nasreen of head (24,000 n units-38,00 00 of pancreas Units) by 0 mouth 3 units-60,00 (three) 0 units times a capsule day with meals. omeprazole Yes Primary 20mg Take 1 MD (PriLOSEC) 1-12 adenocarcin capsule Anderso 20 mg 00:00: nasreen of head (20 mg) by n capsule 00 of pancreas mouth every morning before breakfast. diphenoxyla Yes Primary 1{tbl} Take 1 MD te-atropine 1-12 adenocarcin tablet by Anderso (LOMOTIL) 00:00: nasreen of head mouth n 2.5 00 of pancreas every 6 mg-0.025 mg (six) per tablet hours as needed for diarrhea. Not to exceed 8 tablets per day Proventil Yes Primary 1{puff} Inhale 1-2 MD HFA 90 1-12 adenocarcin puffs by An derso mcg/actuati 00:00: nasreen of head mouth n on inhaler 00 of pancreas every 12 (twelve) hours. omeprazole- 2020- No 1 capsule amoxicill-r 05-13 30 minutes A nderso ifabutin 19:35: 00:00 before n 10-250-12.5 13 :00 morning mg CpID meal morphine 2020- No MS Contin (MS Contin) 05-13 15 mg Sandro o 15 mg ER 19:35: 00:00 tablet,ext n tablet 13 :00 ended release Take 1 tablet twice a day by oral route as needed for 28 days. chlorhexidi 2019-05 Yes Primary 15mL Swish and MD [place] (PAROEX) 2-29 adenocarcin spit 15 mL Anderso 0.12% 00:00: nasreen of head twice n mouthwash 00 of pancreas daily. (alcohol-fr ee) fluoride, 2019-05- Yes Primary Apply to sodium, 06-04 adenocarcin teeth And erso (PREVIDENT) 00:00: 05:59 nasreen of head twice n 1.1 % 00 :00 of pancreas daily for dental 30 days. cream Ransom teeth with cream twice a day and expectorat e (Do not rinse for 30 minutes). omeprazole 2019-05- No Primary 20mg Take 1 M D (PriLOSEC) 15 12 adenocarcin capsule Anderso 20 mg 00:00: 00:00 nasreen of head (20 mg) by n capsule 00 :00 of pancreas mouth every morning before breakfast. morphine 2019-05 Yes (MS CONTIN) 11 Anderso 30 mg 12 hr 00:00: n tablet 00 magic 2019-05 Yes Sore mouth 10mL Swish and M D mouthwash 1-24 spit 10 mL Marcello rso (sucralfate 00:00: 4 (four) n /maalox/dip 00 times a henhydramin day. e) (AMB-CMPD) magic 2019-05 Yes Swish and MD mouthwash 1-24 spit 10 mL Marcello rso (sucralfate 00:00: by mouth 4 n /maalox/dip 00 times henhydramin daily for e) mouth (AMB-CMPD) sore. magic 2019-05- No Sore mouth 10mL Swish and MD mouthwash 1-24 11-24 spit 10 mL And erso (sucralfate 00:00: 00:00 4 (four) n /maalox/dip 00 :00 times a henhydramin day. e) (AMB-CMPD) milk and 2019-05 Yes Primary Add 180 mL molasses 1-10 adenocarcin warm tap Anderso enema kit 00:00: nasreen of head water to n (AMB-CMPD) 00 of pancreas powdered milk container and stir until fully mixed. Add half of the milk solution to molasses container. Screw top of molasses container back on securely, and vigorously shake mixture until color is homogenous throughout . Pour the remaining milk and milk/molas ses mixture into an enema bag and mix until homogenous color, then administer . rosuvastati 2019-05- No 1 tablet M D n (Crestor) 0-20 10-20 Anderso 10 mg 18:10: 00:00 n tablet 06 :00 nitrofurant 2019-05- No 100mg Take 100 MD oin 0-20 10-20 mg by Anderso monohyd/m-c 18:09: 00:00 mouth n ryst 32 :00 twice (MACROBID) daily. 100 mg capsule montelukast 2019-05 No 1 tablet M D (Singulair) 0-20 10-20 Anderso 10 mg 18:09: 00:00 n tablet 18 :00 LORazepam 2019-05- No lorazepam MD (ATIVAN) 0-20 10-20 0.5 mg Anderso 0.5 mg 18:09: 00:00 tablet n tablet 06 :00 lisinopril 2019-05 No 1 tablet MD (QBRELIS) 1 0-20 10-20 Anderso mg/mL oral 18:08: 00:00 n solution 59 :00 HYDROcodone 2019-05- No 1{tbl} Take 1 M D -acetaminop 0-20 10-20 tablet by An derso hen (NORCO) 18:08: 00:00 mouth n 10 mg-325 51 :00 every 4 mg per (four) tablet hours as needed. gabapentin 2019-05 No 1 capsule M D 10 % cmap 0-20 10-20 Anderso 18:08: 00:00 n 41 :00 albuterol 2019-05- No 1{puff} Inhale 1 MD (Ventolin 0-20 10-20 puff by Sandro o HFA) 90 18:07: 00:00 mouth. n mcg/puff 45 :00 inhaler fentaNYL 2019-05- No 1{patch Place 1 MD 62.5 0-20 10-20 } patch on Anderso mcg/hour 18:07: 00:00 the skin n pt72 43 :00 every 3 (three) days. fentaNYL 2019-05- No 1 patch to MD (FENTORA) 0-20 10-20 skin Anderso 100 MCG 18:07: 00:00 n buccal 30 :00 tablet eszopiclone 2019-05- No 1 tablet M D (LUNESTA) 1 0-20 10-20 immediatel A nderso mg tablet 18:06: 00:00 y before n 58 :00 bedtime ESCITALOPRA 2019-05- No 1 tablet M D M OXALATE 0-20 10-20 Anderso ORAL 18:06: 00:00 n 40 :00 carBAMazepi 2019-05- No 1 tablet M D ne 100 mg/5 0-20 10-20 Anderso mL (5 mL) 18:04: 00:00 n susp 22 :00 diphenoxyla 2019-05- No Primary 1{tbl} Take 1 MD te-atropine 05-18 adenocarcin tablet by Anderso (LOMOTIL) 00:00: 00:00 nasreen of head mouth n 2.5 00 :00 of pancreas every 6 mg-0.025 mg (six) per tablet hours as needed for diarrhea. Not to exceed 8 tablets per day magic 2019- Sore mouth 10mL Swish and mouthwash 01-26 spit 10 mL And erso (sucralfate 00:00: 00:00 4 (four) n /maalox/dip 00 :00 times a henhydramin day. e) (AMB-CMPD) pancrelipas 2019- No 2 capsule e (Creon) 01-18 Anderso 12,000 20:39: 00:00 n units-38,00 10 :00 0 units-60,00 0 units capsule pancrelipas 2020- No Primary [id number] Take 2 MD e (Creon) 01-18 adenocarcin capsules Anderso 12,000 00:00: 00:00 nasreen of head (24,000 n units-38,00 00 :00 of pancreas Units) by 0 mouth 3 units-60,00 (three) 0 units times a capsule day with meals. omeprazole 2019- No Primary 20mg Take 1 M D (PriLOSEC) 01-18 adenocarcin capsule Anderso 20 mg 00:00: 00:00 nasreen of head (20 mg) by n capsule 00 :00 of pancreas mouth every morning before breakfast. Amphetamine Amphetamine 2019- Yes Duane [address] [facility] -Dextroamph 01-08 [facility] eszopiclone 2019-0 Yes MD (LUNESTA) 2 -04 Anderso mg tablet 00:00: n 00 dextroamphe 2019-0 2020- No 30mg Take 30 mg MD tamine-amph 01-08 10-20 by mouth And erso etamine 00:00: 00:00 twice n (AdderalL) 00 :00 daily. 10 mg tab rOPINIRole 2019- 2020- No MD (REQUIP) 1 01-08 10-20 Anderso mg tablet 00:00: 00:00 n 00 :00 Nicoderm CQ 2019-0 Yes Tobacco Apply 1 MD 14 mg/24 hr 8-12 dependence patch to Anderso transdermal 00:00: syndrome skin and n patch 00 change patch daily as directed for tobacco cessation (alternate sites). nicotine, Yes Tobacco 4mg Dissolve 1 MD polacrilex, 812 dependence lozenge (4 Anderso (Nicorette) 00:00: syndrome mg) in the n 4 mg mini 00 mouth lozenge every 2 (two) hours as needed for smoking cessation. omeprazole 2019- No Primary 20mg Take 1 M D (PriLOSEC) 12-08 09-14 adenocarcin capsule Anderso 20 mg 00:00: 00:00 nasreen of head (20 mg) by n capsule 00 :00 of pancreas mouth every morning before breakfast. cefdinir 2020- No cefdinir MD (OMNICEF) 12-05 10-20 300 mg Anderso 300 mg 00:00: 00:00 capsule n capsule 00 :00 Nicoderm CQ 2019-0 2020- No Tobacco Apply 1 MD 14 mg/24 hr 11-30 08-12 dependence patch to Anderso transdermal 00:00: 00:00 syndrome skin and n patch 00 :00 change patch daily as directed for tobacco cessation (alternate sites). nicotine, 2020- No Tobacco 4mg Dissolve 1 MD polacrilex, 11-30 08-12 dependence lozenge (4 Anderso (Nicorette) 00:00: 00:00 syndrome mg) in the n 4 mg mini 00 :00 mouth lozenge every 2 (two) hours as needed for smoking cessation. fentaNYL 2019-0 2020- No acute pain 1{patch Q72H Place 1 Dang (DURAGESIC) 7-20 07-20 } patch on Met hodi 100 mcg/hr 12:24: 00:[address] 21 :00 every third day .acute pain. lisinopriL 2019-0 2020- No 20mg QD Take 20 mg Dang (PRINIVIL) 7-20 07-20 by mouth Meth yan 20 mg 12:24: 00:[address] tablet 21 :00 chlorproMAZ 2019-0 2020- No 25mg Take 25 mg Dang INE 7-20 07-20 by mouth Methodi (THORAZINE) 12:24: 00:[address] 25 MG 21 :00 for tablet nausea. promethazin 2019-0 2020- No 20mg Q6H Take 20 mg Dang e 7-20 07-20 by mouth Methodi (PHENERGAN) 12:24: 00:[address] 12.5 MG 21 :00 (six) tablet hours as needed for nausea or vomiting. furosemide 2019-0 2020- No 30mg Take 30 mg Dang (LASIX) 20 7-20 07-20 by mouth Meth yan mg tablet 12:24: 00:00 as needed. s t 21 :00 gabapentin 2020-0 Yes 400mg Q.25D Take 400 [place] (NEURONTIN) 7-20 mg by Methodi 400 mg 12:24: mouth 4 st capsule 18 (four) times a day. HYDROcodone 2020-0 Yes acute pain 1{tbl} Q4H Take 1 Dang -acetaminop 7-20 tablet by Met hodi hen (NORCO) 12:24: mouth st 10-325 mg 18 every 4 per tablet (four) hours as needed for moderate pain .acute pain. atorvastati 2020-0 Yes 20mg QD Take 20 mg Dang n (LIPITOR) 7-20 by mouth Meth yan 20 mg 12:24: daily. st tablet 18 Default OP ins escitalopra 2020-0 Yes 20mg QD Take 20 mg Dang m (LEXAPRO) 7-20 by mouth Meth yan 20 MG 12:24: daily. st tablet 18 carBAMazepi 2020-0 Yes 500mg QD Take 500 [place] ne XR 7-20 mg by Methodi (TEGretol 12:24: mouth st XR) 100 MG 18 daily. 12 hr tablet dextroamphe 2020-0 Yes 30mg Q.5D Take 30 mg Dang tamine-amph 7-20 by mouth 2 Me thodi etamine 12:24: (two) st (ADDERALL) 18 times a 30 mg day. tablet DULoxetine 2020-0 Yes 50mg QD Take 50 mg [place] (CYMBALTA) 7-20 by mouth Metho di 30 MG 12:24: daily. st capsule 18 ARIPiprazol 2020-0 Yes 5mg QD Take 5 mg [place] e (ABILIFY) 7-20 by mouth Meth yan 5 MG tablet 12:24: daily. st 18 ARIPiprazol 2020-0 Yes 10mg QD Take 10 mg Dang e (ABILIFY) 7-20 by mouth Meth yan 10 MG 12:24: daily. st tablet 18 pantoprazol 2020-0 2020- No 40mg Q.5D Take 40 mg Dang e 7-20 07-20 by mouth 2 [facility] (PROTONIX) 10:36: 00:00 (two) st 40 MG EC 30 :00 times a tablet day. pantoprazol 2020-0 Yes 40mg Q.5D Take 1 [place] 7-20 tablet (40 Method[facility] (PROTONIX) 00:00: mg total) st 40 MG EC 00 by mouth 2 tablet (two) times a day before meals. ferrous 2020-0 Yes 325mg Q.5D Take 1 Dang sulfate 325 7-20 tablet Method i (65 FE) MG 00:00: ([address] EC tablet 00 total) by mouth 2 (two) times a day. polyethylen 2020-0 2020- No 17g Q24H Take 17 g Dang e glycol 7-20 08-19 by mouth Method i (MIRALAX) 00:00: 23:[address] 17 gram 00 :00 needed for packet constipati on for up to 30 days. LORazepam 2020-0 2020- No Primary .5mg Take 1 MD (ATIVAN) 6-16 06-17 adenocarcin tablet A nderso 0.5 mg 00:00: 04:59 nasreen of head (0.5 mg) n tablet 00 :00 of pancreas by mouth once for 1 dose. LORazepam 2020-0 2020- No Adenocarcin 1mg Take 1 MD (ATIVAN) 1 6- 06-12 nasreen of tablet (1 A nderso mg tablet 00:00: 04:59 transverse mg) by n 00 :00 colon mouth once for 1 dose. Take 30 minutes prior to procedure nicotine, Tobacco 4mg Dissolve 1 MD polacrilex, 10-09 dependence lozenge (4 Anderso (Nicorette) 00:00: 00:00 syndrome mg) in the n 4 mg mini 00 :00 mouth lozenge every 2 (two) hours as needed for smoking cessation. NICODERM CQ Tobacco Apply 1 MD 14 mg/24 hr 10-09 dependence patch to Anderso transdermal 00:00: 00:00 syndrome skin and n patch 00 :00 change patch daily as directed for tobacco cessation (alternate sites). escitalopra Yes MD m (LEXAPRO) 5-28 Anderso 20 mg 00:00: n tablet 00 rOPINIRole 2019- No MD (REQUIP) 5-26 10-20 Anderso 0.5 mg 00:00: 00:00 n tablet 00 :00 LORazepam No 1mg Take 1 mg MD (ATIVAN) 1 09-16 06-11 by mouth Marcello rso mg tablet 00:00: 00:00 as needed. n 00 :00 LORazepam 2019- No Primary 1mg Take 1 MD (ATIVAN) 1 09-16 05-14 adenocarcin tablet (1 Anderso mg tablet 00:00: 04:59 nasreen of head mg) by n 00 :00 of pancreas mouth once for 1 dose. Take 30 mins prior to procedure pancrelipas No Primary [id number] Take 2 MD e (Creon) 4- 09-14 adenocarcin capsules Anderso 12,000 00:00: 00:00 nasreen of head (24,000 n units-38,00 00 :00 of pancreas Units) by 0 mouth 3 units-60,00 (three) 0 units times a capsule day with meals. eszopiclone 2019- No 1{tbl} Take 1 M D (LUNESTA) 3 1-20 10-20 tablet by An derso mg tablet 00:00: 00:00 mouth as n 00 :00 needed. ondansetron 2018-05- No cancer 8mg Take 1 M D (ZOFRAN) 8 06-16 chemotherap tablet (8 Anderso mg tablet 00:00: 00:00 y-induced mg) by n 00 :00 nausea and mouth vomiting every 8 (eight) hours as needed for nausea or vomiting. prochlorper 2018-05- No cancer 10mg Take 1 M D azine 06-16 chemotherap tablet (10 Anderso (COMPAZINE) 00:00: 00:00 y-induced mg) by n 10 mg 00 :00 nausea and mouth tablet vomiting every 6 (six) hours as needed for nausea or vomiting. loperamide 2018-05- No chemotherap 2 tabs po MD (IMODIUM 06-16 y-induced 1st loose Anderso A-D) 2 mg 00:00: 00:00 diarrhea stool, n tablet 00 :00 then 1 tab q2h until diarrhea free for 12 hours. May take 2 tabs q4hrs at night. capecitabin 2018-05- No Primary 3000mg Take 3 MD e (XELODA) 2-10 -15 adenocarcin tablets by Anderso 500 mg 00:00: 00:00 nasreen of head mouth n tablet 00 :00 of pancreas every morning and 3 tablets every evening Sunday through Sunday with radiation. diphenoxyla 2018-05- No chemotherap 1{tbl} Take 1-2 MD te-atropine 2-10 05-15 y-induced tablets by Anderso (LOMOTIL) 00:00: 00:00 diarrhea mouth n 2.5 00 :00 every 6 mg-0.025 mg (six) per tablet hours as needed for diarrhea (or loose stool. (Second Choice)). Not to exceed 8 tablets per day carBAMazepi 2018-05 Yes 200mg Take 200 M D ne 1-27 mg by Anderso (TEGretol) 00:00: mouth n 200 mg 00 daily. tablet hydroCHLORO 2018-05 Yes 25mg Take 25 mg MD thiazide 1-27 by mouth Anderso (HYDRODIURI 00:00: as needed. n L) 25 mg 00 tablet lisinopril 2018-05 Yes 1{tbl} Take 1 MD (PRINIVIL,Z 1-27 tablet by And erso ESTRIL) 20 00:00: mouth n mg tablet 00 daily. tretinoin 2018-05- No 1{appli Apply 1 M D (RETIN-A) 0-30 05-15 cation} applicatio Anderso 0.05% cream 00:00: 00:00 n n 00 :00 topically to affected area(s) as needed. magic 2018-05- No Pancreatic 10mL Swish and MD mouthwash 018 05-15 cancer spit 10 mL A nderso (sucralfate 00:00: 00:00 4 (four) n /maalox/dip 00 :00 times a henhydramin day. e) (AMB-CMPD) ondansetron 2019- No Primary 8mg Take 1 MD (ZOFRAN) 8 01-10 05-15 adenocarcin tablet (8 Anderso mg tablet 00:00: 00:00 nasreen of head mg) by n 00 :00 of pancreas mouth every 8 (eight) hours as needed for nausea or vomiting ((First choice)). prochlorper 2019- No Primary 10mg Take 1 MD azine 01-10-15 adenocarcin tablet (10 Anderso (COMPAZINE) 00:00: 00:00 nasreen of head mg) by n 10 mg 00 :00 of pancreas mouth tablet every 6 (six) hours as needed for nausea or vomiting ((Second Choice)). loperamide 2019- No Primary 2 tabs po MD (IMODIUM 01-10-15 adenocarcin 1st loose Anderso A-D) 2 mg 00:00: 00:00 nasreen of head stool, n tablet 00 :00 of pancreas then 1 tab q2h until diarrhea free for 12 hours. May take 2 tabs q4hrs at night. (First Choice) diphenoxyla 2019- No Primary 1{tbl} Take 1-2 MD te-atropine 01-10 05-15 adenocarcin tablets by Anderso (LOMOTIL) 00:00: 00:00 nasreen of head mouth n 2.5 00 :00 of pancreas every 6 mg-0.025 mg (six) per tablet hours as needed for diarrhea (loose stool.(Sec ond choice)). Not to exceed 8 tablets per day pantoprazol 2019- No Primary 40mg Take 1 MD e 8- 05-15 adenocarcin tablet (40 A nderso (PROTONIX) 00:00: 00:00 nasreen of head mg) by n 40 mg EC 00 :00 of pancreas mouth tablet daily with breakfast. pancrelipas 2020- No Primary [id number] Take 2 MD e (CREON) 12-13 04-06 adenocarcin capsules Anderso 12,000 00:00: 00:00 nasreen of head (24,000 n units-38,00 00 :00 of pancreas Units) by 0 mouth 3 units-60,00 (three) 0 units times a capsule day with meals. rOPINIRole 2019- No TAKE 1 MD (REQUIP) 1 12-09 05-15 TABLET BY And erso mg tablet 00:00: 00:00 MOUTH AT n 00 :00 BEDTIME gabapentin 2018- Yes 600mg Take 600 MD (NEURONTIN) 7-11 mg by Anderso 400 mg 00:00: mouth 3 n capsule 00 (three) times a day. rosuvastati Yes 10mg Take 10 mg MD n (CRESTOR) 7-11 by mouth Marcello rso 10 mg 00:00: daily. n tablet 00 topiramate 2019- No 25mg Take 25 mg MD (TOPAMAX) 7 05-15 by mouth Juan Carlos so 25 mg 00:00: 00:00 twice n tablet 00 :00 daily. DULoxetine 2019- No 60mg Take 60 mg MD (CYMBALTA) 7 10-20 by mouth Marcello rso 60 mg 00:00: 00:00 daily. n capsule 00 :00 ARIPiprazol 2019- No 10mg Take 10 mg MD e (ABILIFY) 7 05-15 by mouth And erso 10 mg 00:00: 00:00 at n tablet 00 :00 bedtime. ondansetron 2020- No 8mg Dissolve 8 MD (ZOFRAN-ODT 11-04 05-19 mg on the An derso ) 8 mg 00:00: 00:00 tongue n disintegrat 00 :00 every 12 ing tablet (twelve) hours as needed. Ondansetron Ondansetron Yes Duane [address] [facility] allow to l dissolve [facility] as needed ent Clinics Fentanyl Fentanyl Yes Duane [address] [facility] Gabapentin Gabapentin Yes Duane [address] [facility] Creon Creon Yes Duane [address] [facility] Escitalopra Escitalopra Yes Duane [address] [facility] Oxalate m Oxalate [facility] Lisinopril Lisinopril Yes Duane [address] [facility] Carbamazepi Carbamazepi Yes Duane [address] [facility] ne ne Kim [facility] Ventolin Ventolin Yes Duane [address] [facility] HFA HFA Kim needed [facility] Montelukast Montelukast Yes Duane [address] [facility] Sodium Sodium Kim [facility] Omeprazole Omeprazole Yes Duane [address] [facility] 30 minutes [facility] - before [facility] morning [facility] meal [facility] Eszopiclone Eszopiclone Yes Duane [address] [facility] immediatel [facility] y before [facility] bed[facility] Ropinirole Ropinirole Yes Duane [address] [facility] HCl HCl Kim to 3 hours [facility] Rosuvastati Rosuvastati Yes Duane [address] [facility] n Calcium n Calcium Kim [facility] Vital Signs Vital Name Observation Time Observation Value Comments Source Systolic blood 2020-05-18 17:59:58 173 mm[Hg] pressure Diastolic blood 2020-05-18 17:59:58 108 mm[Hg] MD Mila hayward pressure Heart rate 2020-05-18 17:59:58 94 /min MD Rangel son Body weight 2020-05-18 17:59:58 78.3 kg MD Rangel son BMI 2020-05-18 17:59:58 30.02 kg/m2 MD Rangel son Oxygen saturation in 2020-05-18 17:59:58 100 /min MD Loredo Arterial blood by Pulse oximetry Respiratory rate 2020-05-18 17:58:14 18 /min MD Mikel fairchildrson Body temperature 2020-05-06 14:48:40 36.89 Brianna MD Mikel galvan Body height 2020-03-18 18:07:18 161.5 cm MD Juan Carlos sheriff Systolic blood 2019-11-24 07:56:19 115 mm[Hg] [place] [facility] pressure Diastolic blood 2019-11-24 07:56:19 68 mm[Hg] [place] [facility] pressure Heart rate 2019-11-24 07:56:19 81 /min [place] [facility] Body temperature 2019-11-24 07:56:19 36.56 Brianna [place] [facility] Respiratory rate 2019-11-24 07:56:19 20 /min [place] [facility] Oxygen saturation in 2019-11-24 07:56:19 96 /min [place] [facility] Arterial blood by Pulse oximetry Body weight 2019-11-24 04:38:00 84.868 kg [place] BMI 2019-11-24 04:38:00 31.14 kg/m2 [place] [facility] Body height 2019-11-22 08:14:00 165.1 cm [place] [facility] Procedures Procedure Date / Time Performing Source Performed Clinician CT CHEST ABDOMEN PELVIS W 2020-05-13 Gregor Kim MDson CONTRAST 21:05:25 COMPLETE BLOOD COUNT W/ 2020-05-13 Gregor Kim MD Marcello rson DIFFERENTIAL 19:17:00 COMPREHENSIVE METABOLIC PANEL 2020-05-13 Gregor Kim 19:17:00 CANCER ANTIGEN 19-9 2020-05-13 Gregor Kim MD 19:17:00 Results CBC 2020-05-13 Gregor Kim MD 19:17:00 MANUAL DIFFERENTIAL 2020-05-13 Gregor Kim MD 19:17:00 GLUCOSE LEVEL 2020-05-13 Gregor Kim MD 19:17:00 ELECTROLYTE PANEL 2020-05-13 Gregor Kim MD 19:17:00 SERUM CREATININE 2020-05-13 Gregor Kim MD 19:17:00 .GLOMERULAR FILTRATION RATE 2020-05-13 Gregor Kim MD 19:17:00 CALCIUM LEVEL TOTAL 2020-05-13 Gregor Kim MD 19:17:00 ALBUMIN LEVEL 2020-05-13 Kim, Gregor Loredo 19:17:00 ALKALINE PHOSPHATASE 2020-05-13 Kim, Gregor Gunn MD Anderso n 19:17:00 ALANINE AMINOTRANSFERASE 2020-05-13 Kim, Gregor Gunn MD And erson 19:17:00 ASPARTATE AMINOTRANSFERASE 2020-05-13 Kim, Gregor Gunn MD A nderson 19:17:00 TOTAL PROTEIN 2020-05-13 Kim, Gregor Loredo 19:17:00 FRACTIONATED BILIRUBIN 2020-05-13 Kim, Gregor Gunn MD Juan Carlos son 19:17:00 BLOOD UREA NITROGEN 2020-05-13 Kim, Gregor Loredo 19:17:00 CANCER ANTIGEN 19-9 2020-05-06 Kim, Gregor Loredo 14:23:00 COMPREHENSIVE METABOLIC PANEL 2020-05-06 Kim, Gregor Loredo 14:23:00 COMPLETE BLOOD COUNT W/ 2020-05-06 Kim, Gregor Gunn MD Marcello rson DIFFERENTIAL 14:23:00 GLUCOSE LEVEL 2020-05-06 Kim, Gregor Loredo 14:23:00 ELECTROLYTE PANEL 2020-05-06 Kim, Gregor Loredo 14:23:00 SERUM CREATININE 2020-05-06 Kim, Gregor Loredo 14:23:00 .GLOMERULAR FILTRATION RATE 2020-05-06 KimGregor MD 14:23:00 CALCIUM LEVEL TOTAL 2020-05-06 Kim, Gregor Loredo 14:23:00 ALBUMIN LEVEL 2020-05-06 Kim, Gregor Loredo 14:23:00 ALKALINE PHOSPHATASE 2020-05-06 Kim, Gregor Gunn MD Anderso n 14:23:00 ALANINE AMINOTRANSFERASE 2020-05-06 Kim, Gregor Gunn MD And erson 14:23:00 ASPARTATE AMINOTRANSFERASE 2020-05-06 Kim, Gregor Gunn MD A nderson 14:23:00 TOTAL PROTEIN 2020-05-06 Kim, Gregor Loredo 14:23:00 FRACTIONATED BILIRUBIN 2020-05-06 Kim, Gregor Gunn MD Juan Carlos son 14:23:00 Results CBC 2020-05-06 Gregor Kim MD 14:23:00 MANUAL DIFFERENTIAL 2020-05-06 Judy Gregor Loredo 14:23:00 BLOOD UREA NITROGEN 2020-05-06 Judy Gregor L[place]o 14:23:00 ORTHOPANTOGRAM 2020-05-04 Helga Wolf MD 14:54:30 COMPLETE BLOOD COUNT W/ 2020-04-20 Gregor Kim MD Marcello rson DIFFERENTIAL 19:32:00 COMPREHENSIVE METABOLIC PANEL 2020-04-20 Gregor Kim 19:32:00 CANCER ANTIGEN 19-9 2020-04-20 Gregor Kim MD 19:32:00 Results CBC 2020-04-20 Gregor Kim MD 19:32:00 MANUAL DIFFERENTIAL 2020-04-20 Gregor Kim MD 19:32:00 GLUCOSE LEVEL 2020-04-20 Gregor Kim MD 19:32:00 BLOOD UREA NITROGEN 2020-04-20 Gregor Kim MD 19:32:00 ELECTROLYTE PANEL 2020-04-20 Gregor Kim MD 19:32:00 SERUM CREATININE 2020-04-20 Gregor Kim MD 19:32:00 .GLOMERULAR FILTRATION RATE 2020-04-20 Gregor Kim MD 19:32:00 CALCIUM LEVEL TOTAL 2020-04-20 Gregor Kim MD 19:32:00 ALBUMIN LEVEL 2020-04-20 Gregor Kim MD 19:32:00 ALKALINE PHOSPHATASE 2020-04-20 Gregor Kim MD Anderso n 19:32:00 ALANINE AMINOTRANSFERASE 2020-04-20 Gregor Kim MD And erson 19:32:00 ASPARTATE AMINOTRANSFERASE 2020-04-20 Gregor Kim MD A nderson 19:32:00 TOTAL PROTEIN 2020-04-20 Gregor Kim MD 19:32:00 FRACTIONATED BILIRUBIN 2020-04-20 Gregor Kim MD Juan Carlos son 19:32:00 HC 2019-NCOV COVID-19 2020-04-08 Sergio Infante MD Anderso n 19:55:00 COMPLETE BLOOD COUNT W/ 2020-04-08 Gregor Kim MD Marcello rson DIFFERENTIAL 16:06:00 CANCER ANTIGEN 19-9 2020-04-08 Kim, Gregor Loredo 16:06:00 COMPREHENSIVE METABOLIC PANEL 2020-04-08 Gregor Kim 16:06:00 Results CBC 2020-04-08 KimGregor MD 16:06:00 MANUAL DIFFERENTIAL 2020-04-08 Kim Gregor Loredo 16:06:00 GLUCOSE LEVEL 2020-04-08 Kim, Gregor Loredo 16:06:00 BLOOD UREA NITROGEN 2020-04-08 Judy Gregor Loredo 16:06:00 ELECTROLYTE PANEL 2020-04-08 Judy Gregor Loredo 16:06:00 SERUM CREATININE 2020-04-08 Kim, Gregor Loredo 16:06:00 .GLOMERULAR FILTRATION RATE 2020-04-08 Gregor Kim MD 16:06:00 CALCIUM LEVEL TOTAL 2020-04-08 Kim, Gregor Loredo 16:06:00 ALBUMIN LEVEL 2020-04-08 Kim, Gregor Loredo 16:06:00 ALKALINE PHOSPHATASE 2020-04-08 Judy Gregor Gunn MD Anderso n 16:06:00 ALANINE AMINOTRANSFERASE 2020-04-08 Gregor Kim MD And erson 16:06:00 ASPARTATE AMINOTRANSFERASE 2020-04-08 Gregor Kim MD A nderson 16:06:00 TOTAL PROTEIN 2020-04-08 Judy Gregor Loredo 16:06:00 FRACTIONATED BILIRUBIN 2020-04-08 Gregor Kim MD Juan Carlos son 16:06:00 COMPLETE BLOOD COUNT W/ 2020-03-18 Gregor Kim MD Marcello rson DIFFERENTIAL 17:31:00 COMPREHENSIVE METABOLIC PANEL 2020-03-18 Gregor Kim 17:31:00 LACTATE DEHYDROGENASE 2020-03-18 Gregor Kim MD Sandro on 17:31:00 MAGNESIUM LEVEL 2020-03-18 Gregor Kim MD 17:31:00 PHOSPHORUS LEVEL 2020-03-18 Gregor Kim MD 17:31:00 Results CBC 2020-03-18 Gregor Kim MD 17:31:00 MANUAL DIFFERENTIAL 2020-03-18 Judy Gregor Loredo 17:31:00 GLUCOSE LEVEL 2020-03-18 Judy Gregor Loredo 17:31:00 BLOOD UREA NITROGEN 2020-03-18 Kim, Gregor Loredo 17:31:00 ELECTROLYTE PANEL 2020-03-18 Kim Gregor Loredo 17:31:00 SERUM CREATININE 2020-03-18 Kim, Gregor Loredo 17:31:00 .GLOMERULAR FILTRATION RATE 2020-03-18 Judy Gregor Loredo 17:31:00 CALCIUM LEVEL TOTAL 2020-03-18 Kim, Gregor Loredo 17:31:00 ALBUMIN LEVEL 2020-03-18 Judy Gregor Loredo 17:31:00 ALKALINE PHOSPHATASE 2020-03-18 Gregor Kim MD Anderso n 17:31:00 ALANINE AMINOTRANSFERASE 2020-03-18 Gregor Kim MD And erson 17:31:00 ASPARTATE AMINOTRANSFERASE 2020-03-18 Gregor Kim MD A nderson 17:31:00 TOTAL PROTEIN 2020-03-18 Judy Gregor Loredo 17:31:00 FRACTIONATED BILIRUBIN 2020-03-18 Gregor Kim MD Juan Carlos son 17:31:00 CT CHEST ABDOMEN PELVIS W 2020-03-11 Gregor Kim MD An derson CONTRAST 16:28:39 COMPLETE BLOOD COUNT W/ 2020-03-11 Gregor Kim MD Marcello rson DIFFERENTIAL 14:50:00 COMPREHENSIVE METABOLIC PANEL 2020-03-11 Gregor Kim 14:50:00 CANCER ANTIGEN 19-9 2020-03-11 Gregor Kim MD 14:50:00 Results CBC 2020-03-11 Gregor Kim MD 14:50:00 MANUAL DIFFERENTIAL 2020-03-11 Gregor Kim MD 14:50:00 GLUCOSE LEVEL 2020-03-11 Gregor Kim MD 14:50:00 BLOOD UREA NITROGEN 2020-03-11 Gregor Kim MD 14:50:00 ELECTROLYTE PANEL 2020-03-11 Gregor Kim MD 14:50:00 SERUM CREATININE 2020-03-11 Kim, Gregor Loredo 14:50:00 .GLOMERULAR FILTRATION RATE 2020-03-11 Kim, Gregor Loredo 14:50:00 CALCIUM LEVEL TOTAL 2020-03-11 Kim, Gregor Loredo 14:50:00 ALBUMIN LEVEL 2020-03-11 Kim, Gregor Loredo 14:50:00 ALKALINE PHOSPHATASE 2020-03-11 Kim, Gregor Gunn MD Anderso n 14:50:00 ALANINE AMINOTRANSFERASE 2020-03-11 Kim, Gregor Gunn MD And erson 14:50:00 ASPARTATE AMINOTRANSFERASE 2020-03-11 Kim, Gregor Gunn MD A nderson 14:50:00 TOTAL PROTEIN 2020-03-11 Kim, Gregor Loredo 14:50:00 FRACTIONATED BILIRUBIN 2020-03-11 Kim, Gregor Gunn MD Juan Carlos son 14:50:00 CARCINOEMBRYONIC ANTIGEN 2020-03-03 Kim, Gregor Gunn MD And erson 13:24:00 CANCER ANTIGEN 19-9 2020-03-03 Kim, Gregor Loredo 13:24:00 COMPREHENSIVE METABOLIC PANEL 2020-03-03 Kim, Gregor Loredo 13:24:00 COMPLETE BLOOD COUNT W/ 2020-03-03 Gregor Kim MD Marcello rson DIFFERENTIAL 13:24:00 GLUCOSE LEVEL 2020-03-03 KimGregro MD 13:24:00 BLOOD UREA NITROGEN 2020-03-03 Kim, Gregor Loredo 13:24:00 ELECTROLYTE PANEL 2020-03-03 KimGregor MD 13:24:00 SERUM CREATININE 2020-03-03 Kim, Gregor Loredo 13:24:00 .GLOMERULAR FILTRATION RATE 2020-03-03 Kim, Gregor Loredo 13:24:00 CALCIUM LEVEL TOTAL 2020-03-03 Kim, Gregor Loredo 13:24:00 ALBUMIN LEVEL 2020-03-03 Kim, Gregor Loredo 13:24:00 ALKALINE PHOSPHATASE 2020-03-03 Kim, Gregor Gunn MD Anderso n 13:24:00 ALANINE AMINOTRANSFERASE 2020-03-03 Kim, Gregor Gunn MD And erson 13:24:00 ASPARTATE AMINOTRANSFERASE 2020-03-03 Gregor Kim MD nderson 13:24:00 TOTAL PROTEIN 2020-03-03 Gregor Kim MD 13:24:00 FRACTIONATED BILIRUBIN 2020-03-03 Gregor Kim MD Juan Carlos son 13:24:00 Results CBC 2020-03-03 Gregor Kim MD 13:24:00 MANUAL DIFFERENTIAL 2020-03-03 Gregor Kim MD 13:24:00 AP SOLID TUMOR GENOMIC ASSAY 2020-02-24 Gregor Kim MD DNA V2 INTERPRETATION AND REPORT 19:10:00 RENE FARRAR SOLID TUMOR GENOMIC ASSAY 2020-02-24 Gregor Kim MD RNA V1 INTERPRETATION AND REPORT 19:10:00 COMPREHENSIVE METABOLIC PANEL 2020-02-18 Gregor Kim 18:48:00 COMPLETE BLOOD COUNT W/ 2020-02-18 Gregor Kim MD Marcello rson DIFFERENTIAL 18:48:00 GLUCOSE LEVEL 2020-02-18 Gregor Kim MD 18:48:00 ELECTROLYTE PANEL 2020-02-18 Gregor Kim MD 18:48:00 SERUM CREATININE 2020-02-18 Gregor Kim MD 18:48:00 .GLOMERULAR FILTRATION RATE 2020-02-18 Gregor Kim MD 18:48:00 CALCIUM LEVEL TOTAL 2020-02-18 Gregor Kim MD 18:48:00 ALBUMIN LEVEL 2020-02-18 Gregor Kim MD 18:48:00 ALKALINE PHOSPHATASE 2020-02-18 Gregor Kim MD Anderso n 18:48:00 ALANINE AMINOTRANSFERASE 2020-02-18 Gregor Kim MD And erson 18:48:00 ASPARTATE AMINOTRANSFERASE 2020-02-18 Gregor Kim MD nderson 18:48:00 TOTAL PROTEIN 2020-02-18 Gregor Kim MD 18:48:00 FRACTIONATED BILIRUBIN 2020-02-18 Gregor Kim MD Juan Carlos son 18:48:00 Results CBC 2020-02-18 Gregor Kim MD 18:48:00 MANUAL DIFFERENTIAL 2020-02-18 Gregor Kim MD 18:48:00 BLOOD UREA NITROGEN 2020-02-18 Gregor Kim MD 18:48:00 AP KRAS MUTATION 2020-02-17 Gregor Kim MD 15:35:25 AP PALB2 MUTATION 2020-02-17 Gregor Kim MD Anderso n 15:35:25 AP BRCA1 MUTATION 2020-02-17 Gregor Kim MD Anderso n 15:35:25 AP BRCA2 MUTATION 2020-02-17 Gregor Kim MD Anderso n 15:35:25 AP MARSHALL MUTATION 2020-02-17 Gregor Kim MD 15:35:25 AP ATRX MUTATION 2020-02-17 rGegor Kim MD 15:35:25 AP NTRK1 FUSION ANALYSIS WITH 2020-02-17 Gregor Kim MD INTERPRETATION AND REPORT 15:35:25 AP NTRK2 FUSION ANALYSIS WITH 2020-02-17 Gregor Kim MD INTERPRETATION AND REPORT 15:35:25 AP NTRK3 FUSION ANALYSIS WITH 2020-02-17 Gregor Kim MD INTERPRETATION AND REPORT 15:35:25 AP PIK3CA 2020-02-17 Gregor Kim MD 15:35:25 AP NRAS MUTATION 2020-02-17 Gregor Kim MD 15:35:25 COMPLETE BLOOD COUNT W/ 2020-02-17 Gregor Kim MD Marcello rson DIFFERENTIAL 14:37:00 COMPREHENSIVE METABOLIC PANEL 2020-02-17 Gregor Kim 14:37:00 Results CBC 2020-02-17 Gregor Kim MD 14:37:00 MANUAL DIFFERENTIAL 2020-02-17 Gregor Kim MD 14:37:00 GLUCOSE LEVEL 2020-02-17 Gregor Kim MD 14:37:00 BLOOD UREA NITROGEN 2020-02-17 Gregor Kim MD 14:37:00 ELECTROLYTE PANEL 2020-02-17 Gregor Kim MD 14:37:00 SERUM CREATININE 2020-02-17 Gregor Kim MD 14:37:00 .GLOMERULAR FILTRATION RATE 2020-02-17 Gregor Kim MD 14:37:00 CALCIUM LEVEL TOTAL 2020-02-17 Gregor Kim MD 14:37:00 ALBUMIN LEVEL 2020-02-17 Gregor Kim MD 14:37:00 ALKALINE PHOSPHATASE 2020-02-17 Gregor Kim MD Anderso n 14:37:00 ALANINE AMINOTRANSFERASE 2020-02-17 Gregor Kim MD And erson 14:37:00 ASPARTATE AMINOTRANSFERASE 2020-02-17 Kim, Gregor Gunn MD A nderson 14:37:00 TOTAL PROTEIN 2020-02-17 Gregor Kim MD 14:37:00 FRACTIONATED BILIRUBIN 2020-02-17 Gregor Kim MD Juan Carlos son 14:37:00 COMPLETE BLOOD COUNT W/ 2020-02-03 Barbara Wilkerson MD Marcello rson DIFFERENTIAL 14:40:00 CARCINOEMBRYONIC ANTIGEN 2020-02-03 Gregor Kim MD And erson 14:40:00 CANCER ANTIGEN 19-9 2020-02-03 Gregor Kim MD 14:40:00 COMPREHENSIVE METABOLIC PANEL 2020-02-03 Gregor Kim 14:40:00 Results CBC 2020-02-03 Barbara Wilkerson MD 14:40:00 MANUAL DIFFERENTIAL 2020-02-03 Barbara Wilkerson MD 14:40:00 GLUCOSE LEVEL 2020-02-03 Gregor Kim MD 14:40:00 BLOOD UREA NITROGEN 2020-02-03 Gregor Kim MD 14:40:00 ELECTROLYTE PANEL 2020-02-03 Gregor Kim MD 14:40:00 SERUM CREATININE 2020-02-03 Gregor Kim MD 14:40:00 .GLOMERULAR FILTRATION RATE 2020-02-03 Gregor Kim MD 14:40:00 CALCIUM LEVEL TOTAL 2020-02-03 Gregor Kim MD 14:40:00 ALBUMIN LEVEL 2020-02-03 Gregor Kim MD 14:40:00 ALKALINE PHOSPHATASE 2020-02-03 Gregor Kim MD Anderso n 14:40:00 ALANINE AMINOTRANSFERASE 2020-02-03 Gregor Kim MD And erson 14:40:00 ASPARTATE AMINOTRANSFERASE 2020-02-03 Gregor Kim MD A nderson 14:40:00 TOTAL PROTEIN 2020-02-03 Gregor Kim MD 14:40:00 FRACTIONATED BILIRUBIN 2020-02-03 Gregor Kim MD Juan Carlos son 14:40:00 COVID-19 (SARS-COV-2) 2020-01-23 Gregor Kim MD Sandro on PCR-ASYMPTOMATIC MC 17:45:00 COMPLETE BLOOD COUNT W/ 2020-01-20 Barbara Wilkerson MD Marcello rson DIFFERENTIAL 12:33:00 Results CBC 2020-01-20 Barbara Wilkerson MD 12:33:00 MANUAL DIFFERENTIAL 2020-01-20 Barbara Wilkerson MD 12:33:00 CT CHEST ABDOMEN PELVIS W 2020-01-14 Gregor Kim MD An derson CONTRAST 19:57:11 POC CREATININE 2020-01-14 Gregor Kim MD 17:59:00 COMPLETE BLOOD COUNT W/ 2020-01-06 Gregor Kim MD Marcello rson DIFFERENTIAL 13:12:00 COMPREHENSIVE METABOLIC PANEL 2020-01-06 Gregor Kim 13:12:00 Results CBC 2020-01-06 Gregor Kim MD 13:12:00 MANUAL DIFFERENTIAL 2020-01-06 Gregor Kim MD 13:12:00 GLUCOSE LEVEL 2020-01-06 Gregor Kim MD 13:12:00 ELECTROLYTE PANEL 2020-01-06 Gregor Kim MD 13:12:00 SERUM CREATININE 2020-01-06 Gregor Kim MD 13:12:00 .GLOMERULAR FILTRATION RATE 2020-01-06 Gregor Kim MD 13:12:00 CALCIUM LEVEL TOTAL 2020-01-06 Gregor Kim MD 13:12:00 ALBUMIN LEVEL 2020-01-06 Gregor Kim MD 13:12:00 ALKALINE PHOSPHATASE 2020-01-06 Gregor Kim MD Anderso n 13:12:00 ALANINE AMINOTRANSFERASE 2020-01-06 Gregor Kim MD And erson 13:12:00 ASPARTATE AMINOTRANSFERASE 2020-01-06 Gregor Kim MD A nderson 13:12:00 TOTAL PROTEIN 2020-01-06 Gregor Kim MD 13:12:00 FRACTIONATED BILIRUBIN 2020-01-06 Gregor Kim MD Juan Carlos son 13:12:00 BLOOD UREA NITROGEN 2020-01-06 Gregor Kim MD 13:12:00 COMPLETE BLOOD COUNT W/ 2019-12-16 Barbara Wilkerson MD Marcello rson DIFFERENTIAL 13:10:00 COMPREHENSIVE METABOLIC PANEL 2019-12-16 Barbara Wilkerson 13:10:00 Results CBC 2019-12-16 Barbara Wilkerson MD 13:10:00 MANUAL DIFFERENTIAL 2019-12-16 Barbara Wilkerson MD 13:10:00 GLUCOSE LEVEL 2019-12-16 Barbara Wilkerson MD 13:10:00 BLOOD UREA NITROGEN 2019-12-16 Barbara Wilkerson MD 13:10:00 ELECTROLYTE PANEL 2019-12-16 Barbara Wilkerson MD 13:10:00 SERUM CREATININE 2019-12-16 Barbara Wilkerson MD 13:10:00 .GLOMERULAR FILTRATION RATE 2019-12-16 Barbara Wilkerson MD 13:10:00 CALCIUM LEVEL TOTAL 2019-12-16 Barbara Wilkerson MD 13:10:00 ALBUMIN LEVEL 2019-12-16 Barbara Wilkerson MD 13:10:00 ALKALINE PHOSPHATASE 2019-12-16 Barbara Wilkerson MD Anderso n 13:10:00 ALANINE AMINOTRANSFERASE 2019-12-16 Barbara Wilkerson MD And erson 13:10:00 ASPARTATE AMINOTRANSFERASE 2019-12-16 Barbara Wilkerson MD nderson 13:10:00 TOTAL PROTEIN 2019-12-16 Barbara Wilkerson MD 13:10:00 FRACTIONATED BILIRUBIN 2019-12-16 Barbara Wilkerson MD Juan Carlos son 13:10:00 MD MEDINA BLOOD CONTROL 2019-12-16 Gregor Kim MD Anderso n 11:48:00 FERRITIN LVL 2019-12-16 Gregor Kim MD 11:48:00 COMPLETE BLOOD COUNT W/ 2019-12-09 Gregor Kim MD Marcello rson DIFFERENTIAL 14:15:00 COMPREHENSIVE METABOLIC PANEL 2019-12-09 Kim, Gregor Bravo Facundo 14:15:00 Results CBC 2019-12-09 Kim, Gregor Loredo 14:15:00 MANUAL DIFFERENTIAL 2019-12-09 Kim, Gregor Loredo 14:15:00 GLUCOSE LEVEL 2019-12-09 Kim, Gregor Loredo 14:15:00 ELECTROLYTE PANEL 2019-12-09 Kim, Gregor Loredo 14:15:00 SERUM CREATININE 2019-12-09 Kim, Gregor Loredo 14:15:00 .GLOMERULAR FILTRATION RATE 2019-12-09 Kim, Gregor Loredo 14:15:00 CALCIUM LEVEL TOTAL 2019-12-09 Kim, Gregor Loredo 14:15:00 ALBUMIN LEVEL 2019-12-09 Kim, Gregor Loredo 14:15:00 ALKALINE PHOSPHATASE 2019-12-09 Kim, Gregor Gunn MD Anderso n 14:15:00 ALANINE AMINOTRANSFERASE 2019-12-09 Kim, Gregor Gunn MD And erson 14:15:00 ASPARTATE AMINOTRANSFERASE 2019-12-09 Kim, Gregor Gunn MD A nderson 14:15:00 TOTAL PROTEIN 2019-12-09 Kim, Gregor Loredo 14:15:00 FRACTIONATED BILIRUBIN 2019-12-09 Kim, Gregor Gunn MD Juan Carlos son 14:15:00 BLOOD UREA NITROGEN 2019-12-09 Kim, Gregor Loredo 14:15:00 IR CHEST XRAY 1 VIEW 2019-12-04 Levi Villanueva MD 17:25:[address] GUIDED BIOPSY 2019-12-04 Barbara Wilkerson MD LUNG/MEDIASTINAL 14:49:30 IR CHEST TUBE CHALLENGE 2019-12-04 Levi Villanueva MD Juan Carlos son 14:49:30 IR CHEST XRAY 2 VIEW 2019-12-04 Levi Villanueva MD 14:49:30 PATHOLOGY BIOPSY INTERPRETATION 2019-12-03 Barbara Wilkerson MD 18:20:00 ENDOSCOPIC RETROGRADE 2019-12-02 David Aguiar MD Sandro on CHOLANGIOPANCREATOGRAPHY WITH 14:56:00 Jane REMOVAL OF STENT OF BILE DUCT RADIOLOGIC SUPERVISION AND 2019-12-02 MD Mikel Mckeon nderson INTERPRETATION FOR ENDOSCOPIC 14:56:00 Jane CATHETERIZATION OF THE BILIARY DUCTAL SYSTEM ENDOSCOPY NOTE RESULTS 2019-12-02 David Aguiar MD Juan Carlos son 14:17:43 Jane FL ENDOSCOPY FLUOROSCOPY 2019-12-02 Sydni Hernandez MD 13:37:10 COVID-19 (SARS-COV-2) 2019-12-01 Yuki Edwards MD Andjosep rothman PCR-ASYMPTOMATIC MC 14:38:00 COMPLETE BLOOD COUNT W/ 2019-11-25 Gregor Kim MD Marcello rson DIFFERENTIAL 18:02:00 COMPREHENSIVE METABOLIC PANEL 2019-11-25 Gregor Kim 18:02:00 CARCINOEMBRYONIC ANTIGEN 2019-11-25 Gregor Kim MD And erson 18:02:00 CANCER ANTIGEN 19-9 2019-11-25 Gregor Kim MD 18:02:00 Results CBC 2019-11-25 Gregor Kim MD 18:02:00 MANUAL DIFFERENTIAL 2019-11-25 Gregor Kim MD 18:02:00 GLUCOSE LEVEL 2019-11-25 Gregor Kim MD 18:02:00 BLOOD UREA NITROGEN 2019-11-25 Gregor Kim MD 18:02:00 ELECTROLYTE PANEL 2019-11-25 Gregor Kim MD 18:02:00 SERUM CREATININE 2019-11-25 Gregor Kim MD 18:02:00 .GLOMERULAR FILTRATION RATE 2019-11-25 Gregor Kim MD 18:02:00 CALCIUM LEVEL TOTAL 2019-11-25 Gregor Kim MD 18:02:00 ALBUMIN LEVEL 2019-11-25 Gregor Kim MD 18:02:00 ALKALINE PHOSPHATASE 2019-11-25 Gregor Kim MD Anderso n 18:02:00 ALANINE AMINOTRANSFERASE 2019-11-25 Gregor Kim MD And erson 18:02:00 ASPARTATE AMINOTRANSFERASE 2019-11-25 Gregor Kim MD nderson 18:02:00 TOTAL PROTEIN 2019-11-25 Gregor Kim MD 18:02:00 FRACTIONATED BILIRUBIN 2019-11-25 Gregor Kim MD Juan Carlos son 18:02:00 US DUPLEX VENOUS UPPER EXTREMITY 2019-11-24 [facility] LEFT 03:31:00 [facility] COMPLETE BLD COUNT W/AUTO DIFF 2019-11-24 Lock, Craig [facility] 01:50:00 -[facility] [place] BASIC METABOLIC PANEL 2019-11-24 Lock, Craig Dang [facility] 01:50:00 -[facility] [place] ESTIMATED GFR 2019-11-24 Lock, Craig Dang [facility] 01:50:00 -[facility] [place] HC COMPLETE BLD COUNT W/AUTO DIFF 2019-11-23 Lock, [facility] 06:05:00 -[facility] [place] BASIC METABOLIC PANEL 2019-11-23 Lock, Craig Dang [facility] 04:00:00 -[facility] [place] ESTIMATED GFR 2019-11-23 Lock, Craig Dang [facility] 04:00:00 -[facility] [place] POC GLUCOSE 2019-11-22 Lock, Craig Alton [facility] 11:48:00 [facility] FOLATE LEVEL 2019-11-22 Lock, Craig Dang [facility] 10:19:00 -[facility] [place] FERRITIN LEVEL 2019-11-22 Lock, Craig [facility] 10:19:00 -[facility] [place] TOTAL IRON BINDING CAPACITY 2019-11-22 Lock, Craignathalia [facility] 10:19:00 -[facility] [place] VITAMIN B12 LEVEL 2019-11-22 Lock, Craig Dang [facility] 10:19:00 -[facility] [place] URINE CULTURE 2019-11-[address] 09:15:00 URINALYSIS SCREEN AND MICROSCOPY, 2019-11-22 [facility] WITH REFLEX TO CULTURE 09:15:00 POC GLUCOSE 2019-11-22 Lock, Craig [facility] 09:14:00 -[facility] [place] COVID-19 QUALITATIVE PCR 2019-11-22 [facility] 03:30:00 PROTHROMBIN TIME WITH INR 2019-11-22 [facility] 03:30:00 PARTIAL THROMBOPLASTIN TIME (PTT) 2019-11-22 [facility] 03:30:00 COMPREHENSIVE METABOLIC PANEL 2019-11-22 [facility] 03:30:00 MAGNESIUM LEVEL 2019-11-[address] 03:30:00 PHOSPHORUS LEVEL 2019-11-22 [facility] 03:30:00 THYROID STIMULATING HORMONE 2019-11-22 [facility] 03:30:00 T4, FREE 2019-11-22 Chaves, Christiano [facility] 03:30:00 TROPONIN 2019-11-22 Chaves, Christiano [facility] 03:30:00 TYPE AND SCREEN 2019-11-[address] 03:30:00 ESTIMATED GFR 2019-11-22 Chaves, [facility]o [facility] 03:30:00 PREPARE RBC 2019-11-22 Chaves, [facility]o [facility] 03:30:00 HC COMPLETE BLD COUNT W/AUTO DIFF 2019-11-22 AndieShai Alton Reidist 02:53:00 OSI US VASCULAR 2019-11-22 Mango Campo MD 01:48:[address] ABDOMEN AND PELVIS 2019-11-22 Mango Campo MD And erson 01:48:40 CARCINOEMBRYONIC ANTIGEN 2019-11-21 Marcos Perez MD Marcello rson 12:37:00 COMPLETE BLOOD COUNT W/ 2019-11-21 Marcos Perez MD Juan Calros son DIFFERENTIAL 12:37:00 COMPREHENSIVE METABOLIC PANEL 2019-11-21 Marcos Perez MD 12:37:00 CANCER ANTIGEN 19-9 2019-11-21 Gregor Kim MD 12:37:00 THYROID STIMULATING HORMONE 2019-11-21 Candi Collins MD nderson 12:37:00 FREE THYROXINE 2019-11-21 Candi Collins MD 12:37:00 VITAMIN D 25 HYDROXY LEVEL 2019-11-21 Candi Collins MD derson 12:37:00 VITAMIN B12 LEVEL 2019-11-21 Candi Collins MD 12:37:00 PROTHROMBIN TIME 2019-11-21 Yuki Edwards MD 12:37:00 GLUCOSE, RANDOM 2019-11-21 Yuki Edwards MD 12:37:00 TYPE AND SCREEN 2019-11-21 Yuki Edwards MD 12:37:00 Results CBC 2019-11-21 [facility] Marcos Loredo 12:37:00 MANUAL DIFFERENTIAL 2019-11-21 [facility] 12:37:00 BLOOD UREA NITROGEN 2019-11-21 [facility], Marcos Loredo 12:37:00 ELECTROLYTE PANEL 2019-11-21 [facility] 12:37:00 SERUM CREATININE 2019-11-21 [facility], Marcos Loredo 12:37:00 .GLOMERULAR FILTRATION RATE 2019-11-21 [facility] nderson 12:37:00 CALCIUM LEVEL TOTAL 2019-11-21 [facility], Marcos Loredo 12:37:00 ALBUMIN LEVEL 2019-11-21 [facility] 12:37:00 ALKALINE PHOSPHATASE 2019-11-21 [facility] 12:37[facility]00 ALANINE AMINOTRANSFERASE 2019-11-21 [facility] Marcello rson 12:37:00 ASPARTATE AMINOTRANSFERASE 2019-11-21 [facility] derson 12:37:00 TOTAL PROTEIN 2019-11-21 [facility] 12:37:00 FRACTIONATED BILIRUBIN 2019-11-21 [facility] Sandro on 12:37:00 ABORH 2019-11-21 Yuki Edwards MD 12:37:00 ANTIBODY SCREEN 2019-11-21 Yuki Edwards MD 12:37:00 CLOT EXPIRATION DATE 2019-11-21 Yuki Edwards MD 12:37:00 TMP INTERPRETATION ANTIBODY 2019-11-21 Yuki Edwards MD nderson SCREEN NEGATIVE 12:37:[address] CHEST 2019-11-08 Dr. Francia Santos MD 19:23:[address] ABDOMEN AND PELVIS 2019-11-08 Dr. Francia Santos MD And erson 19:23:36 COMPLETE BLOOD COUNT W/ 2019-10-29 Karina Hernández MD derson DIFFERENTIAL 14:16:00 PROTHROMBIN TIME 2019-10-29 Karina Hernández MD 14:16:00 Results CBC 2019-10-29 Karina Hernández MD 14:16:00 MANUAL DIFFERENTIAL 2019-10-29 Karina Hernández MD Sandro on 14:16:00 COVID-19 (SARS-COV-2) 2019-10-29 Oscar Samuel MD Juan Carlos son PCR-ASYMPTOMATIC MC 14:01:00 A EKG, 12-LEAD (SCHEDULED) 2019-10-29 Magaly Pacheco MD Marcello rson 00:00:00 MRI ABDOMEN & PELVIS W AND WO 2019-10-24 Gregor Kim CONTRAST 18:15:00 CT CHEST ABDOMEN PELVIS W 2019-10-17 Gregor Kim MD An derson CONTRAST 16:18:00 COMPLETE BLOOD COUNT W/ 2019-10-17 Gregor Kim MD Marcello rson DIFFERENTIAL 14:10:00 COMPREHENSIVE METABOLIC PANEL 2019-10-17 Gregor Kim 14:10:00 CARCINOEMBRYONIC ANTIGEN 2019-10-17 Gregor Kim MD And erson 14:10:00 CANCER ANTIGEN 19-9 2019-10-17 Gregor Kim MD 14:10:00 Results CBC 2019-10-17 Gregor Kim MD 14:10:00 MANUAL DIFFERENTIAL 2019-10-17 Gregor Kim MD 14:10:00 GLUCOSE LEVEL 2019-10-17 Gregor Kim MD 14:10:00 ELECTROLYTE PANEL 2019-10-17 Gregor Kim MD 14:10:00 SERUM CREATININE 2019-10-17 Gregor Kim MD 14:10:00 .GLOMERULAR FILTRATION RATE 2019-10-17 Gregor Kim MD 14:10:00 CALCIUM LEVEL TOTAL 2019-10-17 Gregor Kim MD 14:10:00 ALBUMIN LEVEL 2019-10-17 Gregor iKm MD 14:10:00 ALKALINE PHOSPHATASE 2019-10-17 Gregor Kim MD Anderso n 14:10:00 ALANINE AMINOTRANSFERASE 2019-10-17 Gregor Kim MD And erson 14:10:00 ASPARTATE AMINOTRANSFERASE 2019-10-17 Gregor Kim MD nderson 14:10:00 TOTAL PROTEIN 2019-10-17 Gregor Kim MD 14:10:00 FRACTIONATED BILIRUBIN 2019-10-17 Gregor Kim MD Juan Carlos son 14:10:00 BLOOD UREA NITROGEN 2019-10-17 Gregor Kim MD 14:10:00 CT CHEST ABDOMEN PELVIS W 2019-09-18 Barbara Wilkerson MD An derson CONTRAST 19:26:00 CARCINOEMBRYONIC ANTIGEN 2019-09-18 Barbara Wilkerson MD And erson 17:11:00 COMPLETE BLOOD COUNT W/ 2019-09-18 Barbara Wilkerson MD Marcello rson DIFFERENTIAL 17:11:00 COMPREHENSIVE METABOLIC PANEL 2019-09-18 Barbara Wilkerson 17:11:00 CANCER ANTIGEN 19-9 2019-09-18 Barbara Wilkerson MD 17:11:00 Results CBC 2019-09-18 Barbara Wilkerson MD 17:11:00 MANUAL DIFFERENTIAL 2019-09-18 Barbara Wilkerson MD 17:11:00 GLUCOSE LEVEL 2019-09-18 Barbara Wilkerson MD 17:11:00 BLOOD UREA NITROGEN 2019-09-18 Barbara Wilkerson MD 17:11:00 ELECTROLYTE PANEL 2019-09-18 Barbara Wilkerson MD 17:11:00 SERUM CREATININE 2019-09-18 Barbara Wilkerson MD 17:11:00 .GLOMERULAR FILTRATION RATE 2019-09-18 Barbara Wilkerson MD 17:11:00 CALCIUM LEVEL TOTAL 2019-09-18 Barbara Wilkerson MD 17:11:00 ALBUMIN LEVEL 2019-09-18 Barbara Wilekrson MD 17:11:00 ALKALINE PHOSPHATASE 2019-09-18 Barbara Wilkerson MD Anderso n 17:11:00 ALANINE AMINOTRANSFERASE 2019-09-18 Barbara Wilkerson MD And erson 17:11:00 ASPARTATE AMINOTRANSFERASE 2019-09-18 Barbara Wilkerson MD A nderson 17:11:00 TOTAL PROTEIN 2019-09-18 Barbara Wilkerson MD 17:11:00 FRACTIONATED BILIRUBIN 2019-09-18 Barbara Wilkerson MD Juan Carlos son 17:11:00 CARCINOEMBRYONIC ANTIGEN 2019-07-01 Marcos Perez MD Marcello rson 21:23:00 COMPLETE BLOOD COUNT W/ 2019-07-01 MinetreMarcos marroquiner son DIFFERENTIAL 21:23:00 COMPREHENSIVE METABOLIC PANEL [facility] [place] 21:23:00 PREALBUMIN [facility]07[facility] [place] 21:23:00 Results CBC [facility]07[facility] [place] 21:23:00 MANUAL DIFFERENTIAL 2019-07-01 [facility] [place] 21:23:00 GLUCOSE LEVEL [facility]07[facility] [place] 21:23:00 BLOOD UREA NITROGEN 2019-07-01 [facility], Marcos [place] 21:23:00 ELECTROLYTE PANEL 2019-07-01 [facility], Marcos Loredo 21:23:00 SERUM CREATININE 2019-07-01 [facility], Marcos [place] 21:23:00 .GLOMERULAR FILTRATION RATE 2019-07-01 [facility] Marcos Morin nderson 21:23:00 CALCIUM LEVEL TOTAL 2019-07-01 [facility], Marcos [place] 21:23:00 ALBUMIN LEVEL [facility]07[facility] [place] 21:23:00 ALKALINE PHOSPHATASE 2019-07-01 [facility], Marcos [place] 21:23:00 ALANINE AMINOTRANSFERASE [facility]07[facility] FARRAR Marcello rson 21:23:00 ASPARTATE AMINOTRANSFERASE 2019-07-01 [facility] Zaragoza derson 21:23:00 TOTAL PROTEIN [facility]07[facility] aMrcos [place] 21:23:00 FRACTIONATED BILIRUBIN 2019-07-[facility] FARRAR Sandro on 21:23:00 Plan of Care Planned Activity Planned Date Details Comments Source Future Scheduled 2019-12-06 INFLUENZA VACCINE [place] [employer] [facility] 00:00:00 [code = INFLUENZA VACCINE] Future Scheduled 2017 BREAST CANCER [facility] Test 00:00:00 SCREENING [code = BREAST CANCER SCREENING] Future Scheduled 2017 COLONOSCOPY SCREENING [facility] 00:00:00 [code = COLONOSCOPY SCREENING] Future Scheduled 2017 SHINGLES VACCINES [place] [employer] [facility] 00:00:00 (#1) [code = SHINGLES VACCINES (#1)] Future Scheduled 1988 Screening for [facility] Test 00:00:00 malignant neoplasm of cervix (procedure) [code = 240279558] Future Scheduled 1983 COVID-19 VACCINE (1 [place] [facility] 00:00:00 of 2) [code = COVID-19 VACCINE (1 of 2)] Encounters Start End Encounter Admission Attending Care Care Encounter Source Date/Time Date/Time Type Type Clinicians Facility Department ID 2019-10-31 Outpatient MDA Juan Carlos/Hep/Nu [id number] 15:48:35 t Anderso n 2019-10-28 Outpatient CALABRESE, MDA MDA [id number] 14:27:26 LINDA Anderso n 2019-10-28 Outpatient MDA MDA [id number] 14:25:58 Anderso n 2019-10-28 Outpatient MDA MDA [id number] 14:25:52 Anderso n 2019-10-28 Outpatient ALENA, MDA MDA [id number] 14:24:30 ARMANDO Anderso n 2019-10-27 Outpatient MDA MDA [id number] 17:26:12 Anderso n 2020-05-20 2020-05-20 Emergency Larsen, [facility] [id number] 07:22:00 11:16:00 Doroteo Aggarwal [id number] [place] [id number] [place] [id number] 2020-05-15 2020-05-15 Emergency Avca, [facility] [id number] 11:31:00 13:26:00 Annamaria Aggarwal [id number] [place] 4.2.7.2.686 [place] [id number] 2020-05-10 2020-05-10 [facility] [id number] 2020-05-10 2020-05-10 Orders Doctor CUENCA 1.2.840.114 [id number] 00:00:00 00:00:00 Only Unassigned, LAWANDA [id number] [place] [id number] [id number] 2020-05-03 2020-05-03 Outpatient [facility] [id number] [facility] 2020-04-27 2020-04-27 Orders Doctor BANG 1.2.840.114 [id number] 00:00:00 00:00:00 Only Unassigned, [id number] [email or web address] 4.2.7.2.686 [id number] [id number] 2020-04-07 2020-04-07 Outpatient [facility] [id number] [facility] 2020-04-03 2020-04-04 Emergency Singer [facility] [id number] 21:59:00 00:10:00 Doroteo Aggarwal [id number] [place] 4.2.7.2.686 [place] [id number] 2020-04-03 2020-04-03 Orders Doctor CUENCA 1.2.840.114 [id number] 00:00:00 00:00:00 Only Unassigned, LAWANDA [id number] [place] [facility] 4.2.7.2.686 [id number] [id number] 2020-03-25 2020-03-25 Orders Doctor BANG 1.2.840.114 [id number] 00:00:00 00:00:00 Only Unassigned, LAWANDA [id number] [facility] 4.2.7.2.686 [id number] 2020-03-08 2020-03-08 [id number] 2020-02-06 2020-02-06 Outpatient [facility] [id number] [facility] 2020-01-09 2020-01-09 [facility] [id number] 09:50:00 09:50:[address] [facility] Clin[facility] 2019-12-16 2019-12-16 Emergency Ayo [facility] 1.2.840.114 [id number] 11:10:00 14:35:00 Shandra Francis Aggarwal [id number] [place] 4.2.7.2.686 [place] [id number] [id number] 2019-12-07 2019-12-07 Case AMELIA Jacobsen 1.2.840.114 [id number] 00:00:00 00:00:00 Management Seth B H [id number] [facility] 4.2.7.2.686 [id number] 2019-12-06 2019-12-06 Emergency Lio, [facility] 1.2.840.114 [id number] 18:01:00 22:19:00 Annamaria Aggarwal [id number] [place] 4.2.7.2.686 [place] [id number] 2019-11-28 2019-11-28 Outpatient EL KIM, MDA MDA [id number] MD 00:00:00 00:00:00 GREGOR Sandro o n 2019-11-26 2019-11-26 Outpatient EL KIM, MDA MDA [id number] MD 00:00:00 00:00:00 GREGOR Sandro o n 2019-11-25 2019-11-25 Outpatient EL KIM, MDA MDA [id number] MD 00:00:00 00:00:00 GREGOR Sandro o n 2019-11-25 2019-11-25 Outpatient EL KIM, MDA MDA [id number] MD 00:00:00 00:00:00 GREGOR Sandro o n 2019-11-25 2019-11-25 Outpatient EL KIM, MDA MDA [id number] MD 00:00:00 00:00:00 GREGOR Sandro o n 2019-11-22 2019-11-[address] [facility] [id number] [place] 00:00:00 00:00:[address] 2019-11-21 2019-11-22 Emergency lAber Mango [facility] 1.2.840. 114 [id number] 10:33:00 00:50:00 Soila Cox 350.1.13.10 [place] 4.2.7.2.686 [place] [id number] 2019-11-21 2019-11-21 Outpatient SALMA KIM MDA MDA [id number] 00:00:00 00:00:00 GREGOR rothman 2019-11-21 2019-11-21 Orders Doctor CUENCA 1.2.840.114 [id number] 00:00:00 00:00:00 Only Unassigned, LAWANDA 350.1.13.10 [place] [facility] 4.2.7.2.686 [id number] [id number] 2019-11-21 2019-11-21 Case BANG Jacobsen 1.2.840.114 [id number] 00:00:00 00:00:00 Management Seth B LAWANDA [id number] [facility] 4.2.7.2.686 [id number] 2019-11-10 2019-11-10 Outpatient VICTOR HUGO FERRO MDA [id number] 00:00:00 00:00:00 CODY rothman 2019-11-10 2019-11-10 Case AMELIA Jacobsen 1.2.840.114 [id number] 00:00:00 00:00:00 Management Seth B H 350.1.13.10 [place] [id number] [id number] 2019-11-08 2019-11-09 Emergency [facility] [id number] 19:01:17 02:15:00 Mango Aggarwal 350.1.13.10 [place] 4.2.7.2.686 [place] [id number] [id number] 2019-11-03 2019-11-03 Case AMELIA Jacobsen 1.2.840.114 [id number] 00:00:00 00:00:00 Management Seth B H 350.1.13.10 [facility] 4.2.7.2.686 [id number] 2019-11-01 2019-11-01 [facility] [id number] 11:38:53 16:11:00 Jason Aggarwal 350.1.13.10 [place] 4.2.7.2.686 [place] [id number] 2019-10-31 2019-10-31 Outpatient EL LORAINE, MDA MDA [id number] 11:41:06 11:41:06 CHUN rothman 2019-10-31 2019-10-31 Outpatient EL JUDY, MDA MDA [id number] 09:48:54 09:48:54 GREGOR rothman 2019-10-30 2019-10-30 Outpatient EL JUDY, MDA MDA [id number] MD 00:00:00 00:00:00 GREGOR rothman 2019-10-29 2019-10-29 Outpatient EL CAMMY, MDA MDA [id number] 13:02:05 23:59:00 ALBANIA rothman 2019-10-29 2019-10-29 Outpatient EL JUNE, MDA MDA [id number] 09:11:38 13:01:00 MAGALY rothman 2019-10-29 2019-10-29 Outpatient EL TIMDENSTEIN MDA MDA [id number] 09:11:10 13:01:00 , KARINA rothman 2019-10-29 2019-10-29 Outpatient EL VONDENSTEIN MDA MDA [id number] 08:55:21 08:55:21 , KARINA rothman 2019-10-24 2019-10-24 Outpatient EL JUDY, MDA MDA [id number] 09:48:21 09:48:21 GREGOR rothman 2019-05-28 2019-05-28 [facility] 1.2.840.114 [id number] 00:00:00 00:00:00 Nhmelody [facility] 350.1.13.10 Cancer 4.2.7.2.686 [facility] [id number] 2019-01-24 2019-01-24 AMELIA Maldonado 1.2.840.114 [id number] 00:00:00 00:00:00 Management Seth Guevara 350.1.13.10 [facility] 4.2.7.2.686 [id number] 2018-12-28 2018-12-28 Emergency [facility] 1.2.840.114 [id number] 19:28:29 21:18:00 Shandra Aggarwal 350.1.13.10 [place] 4.2.7.2.686 [place] [id number] 2018-11-06 2018-11-06 Outpatient [facility] [id number] 11:29:33 11:29:33 Sandro blaise rothman 2018-10-22 2018-10-22 Nurse 3, [facility] [id number] 09:04:09 14:04:09 Visit Adult HEALTH 350.1.13.10 Infusion CLINICS 4.2.7.2.686 Nurse [id number] 2018-10-21 2018-10-21 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 There appears MD Loredo Pelvis with 7 to be mixed response Contrast 21:37:45 with interval enlargement of pulmonary metastases but the suspected liver metastases have decreased. 2. The primary pancreatic tumor is not well visualized. There is a small hypodense lesion in the uncinate process that has also decreased and is thought to represent the primary tumor. 3. No new metastatic disease is identified. Interface, Radiology Results In - 05/13/2020 3:40 PM CSTFULL RESULT:Examination: CT CHEST ABDOMEN PELVIS W CONTRAST, 05/13/2020 3:05 PMClinical History: Primary adenocarcinoma of head of pancreasIndication: COVID-19 Not SuspectedComparison: 03/11/2020Technique: CT of the chest, abdomen, and pelvis was performed with intravenous contrast.Findings: CT thorax:Bilateral pulmonary metastases are identified. An 11 x 20 mm metastasis is seen in the right upper lung on image 44 of series 15 that adjacent to the oblique fissure that previously measured 7 x 15 mm. A 9 mm metastasis is seen in the right upper lung on image 42 of series 15 that previously measured 5 mm. A 7 mm metastasis is seen in the right upper lung on image 42 of series 15 that previously measured 5 mm. A 22 x 39 mm metastasis is seen in the right lower lung on image 105 of series 15 that previously measured 14 x 26 mm. A 7 mm metastasis is seen in the left lower lung on image 119 of series 15 that previously measured 4 mm. A 7 mm metastasis is seen in the left lower lung on image 116 of series 15 that previously measured 5 mm. A 9 mm metastasis is seen in the left lower lung adjacent to the oblique fissure on image 65 of series 15 that previously measured 5 mm. A 10 mm metastasis is seen in the left upper lung adjacent to the oblique fissure on image 66 of series 15 that previously measured 8 mm. A 5 mm metastasis is seen in the left upper lung on image 60 of series 15 that is unchanged. A 13 mm metastasis is seen in the left upper lung on image 55 of series 15 that is unchanged. Multiple additional bilateral pulmonary metastases are seen.The heart and great vessels are normal. A Port-A-Cath is seen in the right anterior chest wall with its tip in the superior vena cava. There is an unusual 8 mm nodule attached to the anterior wall of the trachea on image 1 of series 15 that previously measured 7 mm. This may represent some form of tracheal polyps or metastasis.Small subcentimeter lymph nodes are seen in the mediastinum. There is a prominent epicardial recess in the right side of the mediastinum on image 58 of series 15 that measures 40 mm and previously measured 46 mm.Mild degenerative changes are seen in skeleton. New graft CT abdomen/pelvis:A metallic biliary stent is seen in place with pneumobilia in the left hepatic ducts. A 12 mm hypodense lesion is seen in liver segment 2 on image 283 of series 14 that previously measured 16 mm and is thought to represent metastatic disease. A 15 mm metastasis is seen in liver segment 3 on image 289 of series 14 that is unchanged. An adjacent 13 mm metastasis is seen on the same image that previously measured 15 mm. Focal steatosis is seen in liver segment 4 adjacent falciform ligament on image 291 of series 14. An 11 mm hypodense lesion is seen in liver segment 6 on image 306 of series 14 that previously measured 16 mm.The gallbladder is collapsed.The primary pancreatic tumor is not well visualized. There is a small 14 mm hypodense area in the uncinate process of the pancreas on image 302 of series 14 that previously measured 19 mm and is thought to represent the primary tumor. There is no pancreatic duct dilatation. The pancreatic body and tail are normal.A 14 mm nodule is seen in the left adrenal gland on image 293 of series 14 that is unchanged that may represent an adenoma. The right adrenal gland is normal.Both kidneys function with excretion of contrast. Nonobstructing calculi are seen in the mid right kidney on image 3 and 29 of series 14. A 37 mm cyst is seen in the lower pole the left kidney on image 336 of series 14.The abdominal aorta and its branches are patent. No abnormal lymphadenopathy is seen in the abdomen or pelvis.The patient is status post hysterectomy. The urinary bladder is normal.A proximal transverse colostomy is seen in the right mid abdomen. A parastomal hernia contains what is thought to represent a portion of the colon and small bowel. There is some fecalization of small bowel content indicative of slow bowel transit but no evidence of bowel obstruction. The efferent limb of the colon is collapsed and there is a large collection of inspissated feces filling the rectum that is unchanged.Mild degenerative changes are seen in skeleton. IMPRESSION:1. There appears to be mixed response with interval enlargement of pulmonary metastases but the suspected liver metastases have decreased.2. The primary pancreatic tumor is not well visualized. There is a small hypodense lesion in the uncinate process that has also decreased and is thought to represent the primary tumor.3. No new metastatic disease is identified. Orthopantogram 2020-04-07 This procedure And adrienne 9 requires no 14:54:30 interpretation from the radiologist. COVID-19 (VERONICA-CoV-2) PCR Asymptomatic 2020-04-09 12:27:46 Test Item Value Reference Range Interpretation Comme nts COVID19 SARS Indication (test Pre-Out of OR Procedure code = 15321) COVID19 SARS Result (test code Not Detected Not Detected = 23400-0) COVID19 SARS Interpretation SARS-CoV-2 NOT Detected. Reference (test code = 18464) Range: Not Detected Methodology: The [employer] RealTime SARS-CoV-2 assay is a qualitative real-time reverse advertising layout worker polymerase chain reaction (nursing manager-PCR) test to detect RNA from SARS-CoV-2 in nasal, nasopharyngeal and oropharyngeal swabs from patients with signs and symptoms of infection who are suspected of COVID-19 by their health care provider. The [employer]eves RealTime SARS-CoV-2 performed on the reQall000 System is a dual target assay with primers and probes for the RdRp and N genes. Results must be interpreted within the context of all relevant clinical and laboratory findings, and epidemiological risk factors. Positive results are indicative of the presence of SARS-CoV-2 RNA; clinical correlation with patient history and other diagnostic information is necessary to determine patient infection status. Positive results do not rule out bacterial infection or co-infection with other viruses. Negative results do not preclude SARS-CoV-2 infection and should not be used as the sole basis for patient management decisions. The [employer]eves RealTime SARS-CoV-2 assay is for in vitro diagnostic use under FDA Emergency Use Authorization only. Testing is limited to laboratories certified under the Clinical Laboratory Improvement Amendments of 1988 (CLIA), 42U.S.C. 263a, to perform high complexity tests. The Test was performed by the CLIA-certified, high-complexity Molecular Diagnostics Laboratory (MDL) at [facility] under the Food and Drug Administration (FDA) s Emergency Use Authorization. Factsheet for patients: https://www.Banchanderson.org/AbbottFactS heetPatientsFactsheet for healthcare providers: https://www.mdanderson.org/AbbottFactS heetHCP Test performed by:[facility] [place] [facility] [id number] [place] [address] MD LoredoDC KRAS Interpretation and [id number]:23:00 Test Item Value Reference Range Interpretation Comments Archived Material Previously diagnosed (test code = 9986) tissues from [place] [address] were selected for molecular analysis. Results will be reported separately. MD LoredoDC NRAS Mutation Interpretation and [id number]:23:00 Test Item Value Reference Range Interpretation Comments Archived Material Previously diagnosed (test code = 9986) tissues from [place] [address] were selected for molecular analysis. Results will be reported separately. [facility] PIK3CA Mutation Analysis Interpretation and [id number]:23:00 Test Item Value Reference Range Interpretation Comments Archived Material Previously diagnosed (test code = 9986) tissues from [place] [address] were selected for molecular analysis. Results will be reported separately. MD LoredoDC NTRK1 Fusion Analysis with Interpretation and [id number]:23:00 Test Item Value Reference Range Interpretation Comments Archived Material Previously diagnosed (test code = 9986) tissues from [place] [address] were selected for molecular analysis. Results will be reported separately. MD LoredoDC NTRK2 Fusion Analysis with Interpretation and [id number]:23:00 Test Item Value Reference Range Interpretation Comments Archived Material Previously diagnosed (test code = 9986) tissues from [place] [address] were selected for molecular analysis. Results will be reported separately. MD Brandt NTRK3 Fusion Analysis with Interpretation and [id number] 01:23:00 Test Item Value Reference Range Interpretation Comments Archived Material Previously diagnosed (test code = 9986) tissues from [place] [address] were selected for molecular analysis. Results will be reported separately. MD Brandt BRCA1 [id number] 01:23:00 Test Item Value Reference Range Interpretation Comments Archived Material Previously diagnosed (test code = 9986) tissues from [place] [address] were selected for molecular analysis. Results will be reported separately. MD Brandt PALB2 [id number] 01:23:00 Test Item Value Reference Range Interpretation Comments Archived Material Previously diagnosed (test code = 9986) tissues from [place] [address] were selected for molecular analysis. Results will be reported separately. MD Brandt BRCA2 [id number] 01:23:00 Test Item Value Reference Range Interpretation Comments Archived Material Previously diagnosed (test code = 9986) tissues from [place] [address] were selected for molecular analysis. Results will be reported separately. MD Brandt ATRX [id number] 01:23:00 Test Item Value Reference Range Interpretation Comments Archived Material Previously diagnosed (test code = 9986) tissues from [place] [address] were selected for molecular analysis. Results will be reported separately. MD Brandt MARSHALL [id number] 01:23:00 Test Item Value Reference Range Interpretation Comments Archived Material Previously diagnosed (test code = 9986) tissues from [place] [address] were selected for molecular analysis. Results will be reported separately. MD LoredoCOVID-19 (SARS-CoV-2) PCR-Asymptomatic [id number] 04:27:47 Test Item Value Reference Range Interpretation Comments COVID19 (SARS Not Detected Not Detected This test is a CoV-2) Result qualitative (test code = reverse-transcr iptase 82225-1) polymerase jammie n reaction (RT-PC R) developed for t [employer] RAVI IMNEXT 0 system and inte nded for the detecti on of SARS CoV-2 RNA in human nasophary ngeal specimens from patients who me et COVID-19 clinic al and/or epidemio logical criteria. This assay has been approv ed by the FDA for use only under Emergency Use Authorization ( EUA) in laboratories th at have been CLIA-certi fied to perform moderate-comple xity and high-comple xity tests. The perf ormance characteristics of this assay were verified by the Microbiology Laboratory at [facility], CLIA Accreditation # : [id number] and CAP Accreditation # : [id number]. Result s must be interpreted within the context of all relevant clinic al and laboratory find ings and should not form the sole basis for a diagnosis or tr eatment decision. "Pres umptive Positive" resul ts are due to partial amplification o f SARS-CoV-2 targ ets and indicates low a maricruz of virus presen t in the specimen at or near the limit of detection. Rega rdless, individuals wit h "Presumptive Po sitive" results should be managed per institutional guidelines as individuals pos itive for SARS-CoV-2 virus, including use o f appropriate inf ection control protoco ls. Internal contro ls are included to ass ess for possible amplif ication inhibitors. If inhibition is detected, testi ng is repeated and if inhibition is confirmed the s pecimen is resulted as "Invalid". When an "Invalid" resul t occur, it is recommended to wait 3 days before sub mitting a new specimen for testing if clin ically indicated. COVID19 SARS HEALTH INFORMATION CODER Swab Source (test code = 07380) COVID19 SARS Pre-Chemotherap Indication (test y code = 21169) [facility] [id number] 18:10:45 Test Item Value Reference Range Interpretation Comments POC Crea (test 0.8 mg/dL 0.6-1.3 Medications, especially code = hydroxyurea or supplements, 58676-1) such as ascorba te, can interfere with test results causing a false ly and significantlyhi gher result than expected. If a problem is suspected wi th a patient's resul t, a sample should be sent to the laboratory for confirmatory testing. POC eGFR-AA 98 >=60 mL/min/1.73 Normal eGFR >= 60 (test code = m2 mL/min/1.73 [place] [address]-4) calculated usvinay g the CKD-EPI equation. The e GFR declines with age. eGFR <60 mL/min/1.73 m2 is considered as "decreased" This equation should only be used for patients 18 and older. According to th e National Kid[employer] on's Kidney Disease Outcome Quality Initiative (KDO QI) classification and 2012 Kidney Disease Improving Global Outcomes (KDIGO) Clinical Practi ce Guideline, the stage of CK D should be categorized bas ed on estimated GFR. Stage Description GFR mL/min/1.73 m21 Kidney andria ge with normal or high GFR >=902 Kidney damage w ith mild decrease in GFR 60-893a Mild to moderat e decrease in GFR 45-593b Moderate to severe decrease in GFR 30-444 Severe d ecrease in GFR 15-295 K idney failure <15 (or dion lysis) POC eGFR-AVNI 85 >=60 mL/min/1.73 Normal eGFR >= 60 (test code = m2 mL/min/1.73 [place]2 [place] [address]-3) calculated usin g the CKD-EPI equation. The e GFR declines with age. eGFR <60 mL/min/1.73 m2 is considered as "decreased" This equation should only be used for patients 18 and older. According to e National Kid[employer] on's Kidney Disease Outcome Quality Initiative (KDO QI) classification and 2012 Kidney Disease Improving Global Outcomes (KDIGO) Clinical Practi ce Guideline, the stage of CK D should be categorized bas ed on estimated GFR. Stage Description GFR mL/min/1.73 m21 Kidney andria ge with normal or high GFR >=902 Kidney damage w ith mild decrease in GFR 60-893a Mild to moderat e decrease in GFR 45-593b Moderate to severe decrease in GFR 30-444 Severe d ecrease in GFR 15-295 K idney failure <15 (or dion lysis) POC Clean Dev Yes (test code = 6672) MD LoredoPathology Biopsy [id number] 21:56:00 Test Item Value Reference Range Interpretation Comments Diagnosis (test code = 34) c4mnqZKnJPHdjJM9JTZ qDJOdo0vmy4SgyKSheR CfRZtbzXRlsaNmbl34r YK0dE85CJ5aOQQaYzX1 QVQqabH7Kpp2QNSaITX kwJZlR455c3vfy7rogj CygZI8eRnfPNQoFODvG WluXGZzMjBccGFyXGYw DWJbETqUAxefPODOE3l PZGiZD8EAVRcJBzEgSU IKK1ZBBBbnxDSaVSbbN zIwXGxpbjcyMCBBREVO C9NQLfFJOe7XKPqrZS3 SGYJYCi9RXmYTDSKXZY 4LMytuK5vKBTEpY8MvF XRvwD0yudDvQCPayael YXJ9 Comment (test code = 9835) u2nrfWRyKLFtfEJ2HMK kJTXrk2pnc2KvwXJlpY HlANkvgIOqguHvcp85w VO5fN70JX1jBGFyTwG9 ZDHaeyX6Yab9DQDbLNR jmQJaO238q4jbo1nsoa DveDD9dZmyYEAlZVNsG WluXGZzMjAgVGhlIHBh qGsyfpMdjzVsdQD7b8K 8DT9iTVVovP5qVPG1QB dgPSYwof3eGOYymL7rn NMrSU6bINSjpeRxWNQ9 dRCtXPDmeu5cMCGflS4 cwVDhwGOisj12YTXiQC lplVFfs3qlk9ZkM4bhe QbxCVewi2W6YHloqmNf nW65MRZxb1p4fWCzLZN 4PVzeiP1sUKXkkvQJYj bcHU5iEU6pF8O8tZQqC FZ9USpboA7fVQCowyIK SzIwLCBDRFgyLCBhbmQ eJDBGVTOicS0gsQbwWW V6vN4iMcSnhZRfFADfQ CAgICAgICAgICAgICAg ICAgICAgICAgLlxwYXI gVGhlIGRpZmZlcmVudG usjAQywJYnyn0nwXTnu N2urONeFCIelCR6GBZ7 HTHgCaTzVZ3tsuLflHa xPIZbTR2uU1QiF1gip5 3kNFQoUcTilmzzVYW2V Wp1sigkbNCjsR9fvJCz GDVdgh9rPXCmwY4woLH vIQIcTNJznE7qyCk4QY FodXS0tI3liIinarZoG W8bf1BxXkTiqZCeHQYv OAQuBZOcmbB9yG6dcmU ns3OodN8mn6b3SU8lQO itjHOzy7Iuy2HsdQDgY GUbvE6iS0WpM8KpQZjh bY4tnJRjX22wlyKwEAV uh13dzYZfWVN9lQVkOW 2wRE3vLAC1iLFmDOPbf 4Pkpauzt7przIvzEDTk IGNvbnNpZGVyZWQsIGl gJAAamS4hC4NhhQzpmU 5kaWNhdGVkLiBccGFyX HBhcn0= Gross Description (test u5koqHLsBPLwr2bvYAI code = [id number]) pBpZcWCHIe5zfe692aN FvCQwbYcEwQkW1lIRjW PJtwWGwm1H9WYoddIHq KkKEartzsHu3z3aeC3r hij1xLH1dFzZoRMGrTJ QwXGZwcnEyIFRpbWVzI N8qzwDNa22azen8x1xn COlwsX0wQHOwAHPniLP vx5C7FDrfgRWnJABBw0 BwfKMjNT6wnmf7r0xoT Eolx1kex6CvGcFjFTEn ZXQwXGZwcnEyIEFyaWF nON1nrnUpirq1a0iiYV GsUt5kSANqapuzJ4ich dFuzQHhKtHpePYjU062 mfmabme2d2wuWDJwWs8 stVayL4zkfhOwrRKeHa BycTIgVHJveSBNaWNyb eLzxHA1pSvsCrZnBAWv w78xhouiB8zraoKiwRX dLhCviCUxB4loEq1fS6 76IWUrHIhko6paf2FgI mNoYXJzZXQwXGZwcnEy TYLgM21dOKNHL127HPS eLYWtRAWww9ose4wyA9 hhcnNldDBcZnBycTIgQ ZMaTCz4kI1Uu8hhd9rs rwUmbAB8WGWoPIJuB2Q fGH6pZGBptYFeY7qbNP MtWIcbezAwvnO2LUNuo LChAMqapgOvDsHbW0Ou FV0qYZtxeFCqYmK6DER zNIL3ICllINRzTWgbGy i4DWM1S2bxZFX3J1jnc xJdblKbDJGdgTB9Cbgz yeQwUdveD7GqNK19ZWu kbGVePiw1CBQwHOd1SX ltNDPlRWRxLjk0WZc1I 2byOVUfGLEvA3GbRH3z MNHaWum9KAQyYIiwnbA rOPO4CLfzVAKyPCX0EX QhdASaDex7EFKcGAE4Y 8kceyYthnX3Q4vsjVGn JDCwK3itMMJhJSbcM4C qZZ2lRLojBgj8HJG2TC jyegRoHIw2NQvsHTCvY Ud6UPQplTBwFwS7WYCd SWF4ECkpjfTlweA9SCj gxGAnQRkmD9eeHPIvHO jiD1OgMG9hRZhxPek4V TIwNztccmVkMjIzXGdy ZWVuMjIzXGJsdWUyMjM 7XHJlZDIzOVxncmVlbj WqGPahbINyHgC3S3qcU XZxIIUdY9YmQD8iTLFa Vfa7ZDV6PLzkxyBuLBc wiqMdoaIhUsm4ZOY4RK v7Mcstf1S9bVMzkRAtk HtcczEgaGVhZGluZyAx C446RWEgOImwVZFiekb lZbx7g3flAyCbUGIjxX 7uDPP0kEctawTbaXJkD KtoPoW7L544TAO6OMht MBMotbonZMb2q8yqNkK aBUCzyZ6iZWK3rV5XMa zcWUYwinzyRWm6VVitV YSfmhlrUbB5BFqcUKNd iLy7DDgdSXEoatD9Myq tYXJndDcyMFxtYXJnYj ocSPavVXYmGJD6DhTxY ZXzm7Qdrzo5OpHeEyTa DDYTNbahxOCvLST9VKS 0ZjFcZXBpYzkxMDFcYW 9biDsyqAi9fXqzVFFyo tS4wKLzCSebt8jaXEN0 d7hbfdvdXYGdSBizUp9 udHRibHtcZjAgQXJpYW u5yV59FEOvwX5pmDLiK Mb0RNDyvyHlaYvrwI3k IwLlTNROGyTHrA4kSGZ EsInpmWYWu6uyggXWw4 KuTKUrjWrfeHEftP2dN FPcn7FkeAvvQ29pw0fk fNHzVvNyv5DkXDCbwhR vVC8wJVFigv3sZOgkGS BnIiOzS1pcvA4gcuksQ VqyqKyvt5DoEI5cJVK6 aksaGrJnJgLnHV67ULT gNSalfdl6lIB3WQVdYL BjbSBkaWFtZXRlciwgZ G29eJPoiGcxp2VanIp0 dGVkIGluIEExLiAgXHB kx6MnT0ImoTPcpJCglR AgWFpccHJvdGVjdDAgX HBsYWluXGZzMjJccGFy oRmeKUJ0Xg7= Disclaimer (test code = t0epcFDnHETdjTDvJzF 9844) vDDDvWUKzy7ixAFDqbH FuZzEwMzNcZnRuYmpcd LXeCVZsIxAnp9rnf844 pTBvs0oqFAAbTaQ4uOV fFIDlgKSaG168HREyDL xoz5gfj7NiBFRwdHVek 1G0BMXZkdtyzZm8eCmo F01uy5X7IjpvS8piPCI oENGeT9OiTV5hKNPnCs h6RXR7DQV2SSVbTKNuC 0HxGL0wZYDmyOCeRTz7 d7jihTtnAJSgCEB7c6h uKDzzymUzSO6mcy3yxR z2i6wnywScBNZrYADzg MDVDMVqH6SbcHmrGk7j tUs1kPjsOoohJCW0Evh 4FA6did90hul3mNclBT UczxtgGgZ2LDqpQOSro erhEZo7RWjeLNPacDO8 WSXnzZEjL6MiKZJvZW6 dswg6BVY0KAgnXMYbHr D8GMSpiEQjKSFpgOaxA Vzdz580GJB6DlOmHF2e M5Woc0I4tW4oeHZbCXD deHIbYvTeJKFekz3dpD FqQTryt4QuGXM6mjW1k NTmoPBzQZXqKV51Nbse i1MbBywiQVV2HSUparA ql7Apy9btGjOenlSiI6 ahP1HnZLSgJVLzDKPnJ pBifoFae2Wkc6XrcMNq kQq3d2sgHHVxHZLiwOg aw0hvMEZ4DYUxJ9X8vL Lqz8shHGomYJLrmRX2e jD4GVAvzMSwC5ScuE9g HUNpFU4jbdn1j2wfGWD 5DUgtQJDbErY1evJ4TR BcaGVhZGVyeTcyMFxmb 741YVA7AwZlHDNsm7Fl A1XdeUfjX50bgGeqL51 iXIAtiBshaK5khOsetA 5cZjBcZnMyNFxxbFxwb UKxukuyCRnkjnF0VHhw axakDDMsUHufD7lrNgY pDBCsyYlbPMewn1PkUD BiXAAxEjpvdfT8AHATj 01dBOBnh8RoEZPmaJ4j iSQpWWphhjIytLA1IUz hdmUgYmVlbiBkZXZlbG 5lNHOfWX8dZVGkquCue a2qkkWlMJRuCHIdZ6Mq cmlzdGljcyBkZXRlcm1 colNkGUW3TZCOJG0SRR XbFBQhg58zWUBreTtkr M3hiQWncgKuCUQwx1Oo vI3cxOCXXRIbA0bfSU1 zRBmqh7VrvRGlbNWpjF V3SGYbc1WfYfUyybOay DTfmSGpD6XbxKvxF1mf IPBmDPXltaAzrYDem0G fFAYmeZM9mYLxOC3IOn AMu49sKDWpBOEJtaBtM ECbdQecyBU0ptE6mW3v LiBJZiBhcHBsaWNhYmx hOHIzs758df6acjO4RE QiDVTdrqoop1MpTUPdG YOzjU74TLEsFCMxkh6u hdswxEYomlUrC4Ombhb 7jQ5tZQJeUObzSBOyIK ZzMjJcbGFuZzEwMzNca GljaFxmMVxkYmNoXGYx VJskZ3owEtJbQcPeWyh wYXJ9 MD Loredo CHEST XRAY 1 [id number] 18:21:47Date of Procedure: 12/04/19 Attending Physician: Alix Neurology Technologist: None Pre Procedure Diagnosis: Pain Post Procedure Diagnosis: Unchanged Indication: Chest tube placement required for post-biopsy pneumothorax. The patient is here to evaluate lung re-expansion and possible chest tube challengeThe patients clinical history was reviewed in detail. On the basis of available clinical data, the procedure is in accordance with commonly accepted standards of clinical practice and does not deplete hospital capacity needed to cope with COVID-19. Title of Procedure:Chest tube challenge. OperativeFindings:Successful challenge with removal of chest tube. A single inspiratory chest radiograph was obtained with the one-way valve open at 0930 and compared to the prior chest radiograph. It demonstrated resolution of the previously noted right pneumothorax. The chest tube was then clamped and an additional chest radiograph was obtained in two hours. The follow-up chest radiograph shows no re-accumulation of the pneumothorax. Plan: The chest tube was removed and the patient was discharged in stable condition with no further follow-up required. Disposition: PACU I certify my physical presence atthe time of the procedure. I personally reviewed the image(s) and the resident's / fellow's interpretation and agree with the written report.MD LoredoIR CHEST XRAY 2 [id number] 13:40:37Date of Procedure: 12/03/19 Attending Physician: Ashwin Ferreira MD Neurology Technologist: Levi Villanueva Pre Procedure Diagnosis: Lesion of lung Post Procedure Diagnosis: Unchanged Indication: New mass / nodulefor tissue diagnosis The patients clinical history was reviewed in detail. On the basis of available clinical data, the procedure noted above is medically necessary to diagnose or correct a serious medical condition. The patient is at risk for cancer progression or decline in their medical condition if the procedure is delayed . Protocol Number: N/A Title of Procedure:Percutaneous CT-Guided Biopsy Operative Findings: 1. Percutaneous image-guided biopsy of 0.8 cm right lower lobe lung lesion.2. Pneumothorax noted on follow-up chest x-rays: Requires chest tube placement Consent: The procedure, risks, indications and alternatives were explained. All questions were answered and informed consent was obtained. I have reviewed the history and physical dictated by the mid-level practitioner/fellow. Sedation/Anesthesia: Anesthesia provided by Anesthesia Department. Procedure in Detail: A time out was performed prior to the start of the procedure and the correct patient, procedure, presence of consent, site, and side were confirmed with all members of the team. With the patient in the left lateral decubitus position, the skin overlying the area of interest was prepped and draped in the usual sterile fashion. Lidocaine 1% was used for local anesthesia. Using a posterior approach under CT image-guidance, a 19 gauge needle was advanced down to the lesion in the right lung. An image was obtained and placed into the medical record. Samples were obtained for evaluation. Sampling: Core Biopsy: A 20 gauge needle used to obtain samples for surgical pathology evaluation. Total number of samples: 4 Biosentry: N/A Under CT imaging-guidance a needle was advanced through an appropriate anterior intercostal space. A wire was advanced through the needle and dilatation performed. A 10 Ukrainian Mac-loc catheter was placed and formed in the pleural cavity in adequate position. The catheter was secured to the chest and attached to a one-way Heimlich valve. Post-biopsy radiographs:.1. A subsequent follow-up chest radiograph was obtained at 1 hours and demonstrates: Trace pneumothorax and chest tube in good position. Specimens Disposition: Diagnostic Biopsy: The biopsy samples were submittedto pathology. Additional Comments: None Estimated Blood Loss: Minimal Immediate Complications: None and Pneumothorax Disposition: PACU Plan: Chest tube challenge tomorrow I certify my physical presence at the time of the procedure. I personally reviewed the image(s) and the resident's / fellow's interpretation and agree with the written report.MD Guidry CHEST TUBE [id number] 13:40:37Date of Procedure: 12/03/19 Attending Physician: Ashwin Ferreira MD Neurology Technologist: Levi Villanueva Pre Procedure Diagnosis: Lesion of lung Post Procedure Diagnosis: Unchanged Indication: New mass / nodulefor tissue diagnosis The patients clinical history was reviewed in detail. On the basis of available clinical data, the procedure noted above is medically necessary to diagnose or correct a serious medical condition. The patient is at risk for cancer progression or decline in their medical condition if the procedure is delayed . Protocol Number: N/A Title of Procedure:Percutaneous CT-Guided Biopsy Operative Findings: 1. Percutaneous image-guided biopsy of 0.8 cm right lower lobe lung lesion.2. Pneumothorax noted on follow-up chest x-rays: Requires chest tube placement Consent: The procedure, risks, indications and alternatives were explained. All questions were answered and informed consent was obtained. I have reviewed the history and physical dictated by the mid-level practitioner/fellow. Sedation/Anesthesia: Anesthesia provided by Anesthesia Department. Procedure in Detail: A time out was performed prior to the start of the procedure and the correct patient, procedure, presence of consent, site, and side were confirmed with all members of the team. With the patient in the left lateral decubitus position, the skin overlying the area of interest was prepped and draped in the usual sterile fashion. Lidocaine 1% was used for local anesthesia. Using a posterior approach under CT image-guidance, a 19 gauge needle was advanced down to the lesion in the right lung. An image was obtained and placed into the medical record. Samples were obtained for evaluation. Sampling: Core Biopsy: A 20 gauge needle used to obtain samples for surgical pathology evaluation. Total number of samples: 4 Biosentry: N/A Under CT imaging-guidance a needle was advanced through an appropriate anterior intercostal space. A wire was advanced through the needle and dilatation performed. A 10 Ukrainian Mac-loc catheter was placed and formed in the pleural cavity in adequate position. The catheter was secured to the chest and attached to a one-way Heimlich valve. Post-biopsy radiographs:.1. A subsequent follow-up chest radiograph was obtained at 1 hours and demonstrates: Trace pneumothorax and chest tube in good position. Specimens Disposition: Diagnostic Biopsy: The biopsy samples were submittedto pathology. Additional Comments: None Estimated Blood Loss: Minimal Immediate Complications: None and Pneumothorax Disposition: PACU Plan: Chest tube challenge tomorrow I certify my physical presence at the time of the procedure. I personally reviewed the image(s) and the resident's / fellow's interpretation and agree with the written report.MD Guidry CT GUIDED BIOPSY LUNG/[id number] 13:40:36Date of Procedure: 12/03/19 Attending Physician: Ashwin Ferreira MD Neurology Technologist: Levi Villanueva Pre Procedure Diagnosis: Lesion of lung Post Procedure Diagnosis: Unchanged Indication: New mass / nodulefor tissue diagnosis The patients clinical history was reviewed in detail. On the basis of available clinical data, the procedure noted above is medically necessary to diagnose or correct a serious medical condition. The patient is at risk for cancer progression or decline in their medical condition if the procedure is delayed . Protocol Number: N/A Title of Procedure:Percutaneous CT-Guided Biopsy Operative Findings: 1. Percutaneous image-guided biopsy of 0.8 cm right lower lobe lung lesion.2. Pneumothorax noted on follow-up chest x-rays: Requires chest tube placement Consent: The procedure, risks, indications and alternatives were explained. All questions were answered and informed consent was obtained. I have reviewed the history and physical dictated by the mid-level practitioner/fellow. Sedation/Anesthesia: Anesthesia provided by Anesthesia Department. Procedure in Detail: A time out was performed prior to the start of the procedure and the correct patient, procedure, presence of consent, site, and side were confirmed with all members of the team. With the patient in the left lateral decubitus position, the skin overlying the area of interest was prepped and draped in the usual sterile fashion. Lidocaine 1% was used for local anesthesia. Using a posterior approach under CT image-guidance, a 19 gauge needle was advanced down to the lesion in the right lung. An image was obtained and placed into the medical record. Samples were obtained for evaluation. Sampling: Core Biopsy: A 20 gauge needle used to obtain samples for surgical pathology evaluation. Total number of samples: 4 Biosentry: N/A Under CT imaging-guidance a needle was advanced through an appropriate anterior intercostal space. A wire was advanced through the needle and dilatation performed. A 10 Ukrainian Mac-loc catheter was placed and formed in the pleural cavity in adequate position. The catheter was secured to the chest and attached to a one-way Heimlich valve. Post-biopsy radiographs:.1. A subsequent follow-up chest radiograph was obtained at 1 hours and demonstrates: Trace pneumothorax and chest tube in good position. Specimens Disposition: Diagnostic Biopsy: The biopsy samples were submittedto pathology. Additional Comments: None Estimated Blood Loss: Minimal Immediate Complications: None and Pneumothorax Disposition: PACU Plan: Chest tube challenge tomorrow I certify my physical presence at the time of the procedure. I personally reviewed the image(s) and the resident's / fellow's interpretation and agree with the written report.MD Babin US [id number] 01:48:54For comparison only. No interpretation requested.MD Babin CT Abdomen and [id number] 01:48:45For comparison only. No interpretation requested.MD LoredoENDOSCOPY NOTE [id number] 14:17:43CoJane De Luna MD - 12/02/2019 9:17 AM CDTPatient Name: Anamaria EricksonGender: FemaleMRN: [id number]: 54Procedure Date No Time: 12/02/2019Instrument Name: [id number] - [id number](s): JANE AGUIAR MD, MARKELL VANCE MD (Fellow)Procedure Name: ERCPScope In: 10:51:25 AMScope Out: 11:27:00 AMTotal Procedure Duration Time 0 hours 35 minutes 35 seconds Patient Profile: This is a 54 year old female with head of pancreas cancer and previously placed plastic stent at OSH. Here for stent change.Indications: Stent change, Malignant tumor of the head of pancreasMedications: General Anesthesia, Levaquin 500 mg IV, LL5Bhojawagp Description: Pre-Anesthesia Assessment: - Prior to the procedure, a History and Physical was performed, and patient medications and allergies were reviewed. The patient's tolerance of previous anesthesia was also reviewed. The risks and benefits of the procedure and the sedation options and risks were discussed with the patient. All questions were answered, and informed consent was obtained. Prior Anticoagulants: The patient has taken no previous anticoagulant or antiplatelet agents. ASA Grade Assessment: III - A patient with severe systemic disease. After reviewing the risks and benefi ts, the patient was deemed in satisfactory condition to undergo the procedure. - The patient was placed in the prone position on the fluoroscopy table. Informed consent was obtained. Throughout the procedure, the patient's blood pressure, pulse, andoxygen saturations were monitored continuously. The Olympus TJF-Q180V ([id number]) sideviewing duodenoscope was introduced through the mouth, and advanced to the duodenum and used to cannulate the bileduct. The ERCP was accomplished without difficulty. The patient tolerated the procedure well.Findings: A biliary stent was visible onthe fender mechanic film. One plastic stent originating in the biliary tree was emerging from the major papilla. One plastic stent was removed from the biliary tree using a snare. Visiglide angled 0.025 wire was passed into the biliary tree. The sphincterotome was passed over the guidewire and the bile duct was then deeply cannulated. The sphincterotome was changed for a balloon catheter. The biliary tree was swept with an 8.5 mm balloon starting at the bifurcation. A small amount of sludge was removed. Bile was aspirated andcontrast was injected. I personally interpreted the bile duct images. Ductal flow of contrast was adequate. Image quality was adequate. Contrast extended to the hepatic ducts. The common bile duct appeared tapered distally, suggestive of stenosis. One 10 mm by 6 cm Hanaro uncovered metal stent was placed into the common bile duct. Bile flowed through the stent. The stent was in good position.Complications: No immediate complications.Estimated Blood Loss: Estimated blood loss wasminimal.Post Procedure Diagnosis: - One stent from the biliary tree was seen in the major papilla. Removed by snare - A single biliary stricture was found in the lower common bile duct. - The biliary tree was swept. Sludge was removed. - One 10 mm by 6 cm Hanaro uncovered metal stent was placed into the common bile duct.Recommendation: - Discharge patient to home. - Clear liquid diet today. - Continue present medications. - Observe patient's clinical course. - Return to referring physician as previously scheduled. Attending Participation: I was present and participated during the entire procedure, including non-greco portions.JANE AGUIAR MD12/02/2019 12:29:09 PMThis report has been signed electronically.Number of Addenda: 0MD Fontenot ENDOSCOPY [id number] 13:37:10This procedure requires no interpretation from the radiologist.MD Babin CT [id number] 19:23:54 For comparison only. No interpretation requested.MD Lentz duplex venous upper [id number] 09:32:00Interface, Radiology Results In - 11/24/2019 9:32 AM CDT Vascular Ultrasound Laboratory Upper Extremity Venous [address]ue[address]Name: ANAMARIA ERICKSON [facility].ID: [id number] .Date: 11/24/2019 Refer.MD: CRAIG VILLANUEVA MD Exam Time: 3:16:00 AM Study Type:UE Venous Height: 65in Weight: 185lb BSA: 1.92 m2 Age: 12 1965,54Y Sex: FEMALE Sonogrphr: JOSE MIGUEL Darnell, RDCS, RVTPat. Stat.:Inpatient Room: [address] Tape Vol: KG, CPT - 4: [id number] Echo Event ID:[id number] Order ID: [id number] Reason for Study:Left arm swelling and pain, DVT suspected.Procedures: Colorflow, Grayscale/2D, Pulsed wave DopplerRace: C SUMMARY:- DUPLEX SCAN OBSERVATIONS Right LeftIJ NormalSubclavian NormalNormalAxillary NormalBrachial NormalBasilic NormalCephalic NormalLEFT: There is normal compressibility and no evidence of echogenicmaterial noted within the lumen of the visualized veins. Colorflow andDoppler signals are normal. PRELIMINARY FINDINGS1. No evidence of venous thrombosis of thevisualized veins.PHYSICIAN INTERPRETATION Venous examination of the left upper extremity and neck demonstratedno evidence of venous thrombosis. FINDINGS: Signed 11/24/2019 09:32 Gloria Cowan MD, [facility] MethodistBasi metabolic [id number] 04:05:46 Test Item Value Reference Range Interpretation Comments Sodium (test code = 2951-2) 138 135- 148 mEq/L Potassium (test code = 2823-3) 4.1 3.5- 5.0 mEq/L Chloride (test code = 5-0) 111 98- 112 mEq/L CO2 (test code = 2027-9) 17 24- 31 mEq/L L Anion gap (test code = 94125-1) 10@ANIO 7- 15 mEq/L BUN (test code = 3094-0) 8 mg/dL 6-20 Creatinine (test code = 2160-0) 1.20 mg/dL 0.5-0.9 H Glucose (test code = 2345-7) 105 mg/dL 65-99 H Calcium (test code = 22563-5) 7.4 mg/dL 8.3-10.2 L Lab Interpretation (test code = Abnormal 71953-6) [place] MethodistEstimated [id number] 04:05:46 Test Item Value Reference Range Interpretation Comments Estimated GFR (test 52 mL/min/1.73 m2 Mikel lui Units code = 5488) InterpretationG 1 >=90 Kavita l or highG2 60-89 Mildly decrease dG3a 45-59 Mil dly to moderately decr psnurC7k 30-44 Moderately to s everely decreasedG4 15-29 Severe ly decreasedG5 <15 Kidney sean lureThe eGFR was calcul ated using the [facility] Kidney Disease Epidemiology Collaboration ( CKD-EPI) equation. Interpretation is based on recommendati ons of the National [facility]-Kidn ey Disease Outcome s Quality Initiat dillon (NK-KDOQI) pub lished in 2013. Lab Interpretation Abnormal (test code = 94691-6) [place] MethodistCBC with platelet and [id number] 03:26:43 Test Item Value Reference Range Interpretation Comments WBC (test code = 13903-6) 5.76 4.50- 11.00 k/uL RBC (test code = 74455-7) 3.37 m/uL 4.2-5.5 L HGB (test code = 718-7) 10.1 g/dL 12-16 L HCT (test code = 4544-3) 31.6 % 37-47 L MCV (test code = 787-2) 93.8 fL 82-100 MCH (test code = 785-6) 30.0 pg 27-34 MCHC (test code = 786-4) 32.0 g/dL 31-37 RDW - SD (test code = 54.7 fL 37-55 51915-8) MPV (test code = 97753-0) 9.7 fL 8.8-13.2 Platelet count (test code 355 150- 400 k/uL = 97613-0) Nucleated RBC (test code 0.00 /100 WBC = 27042-1) Neutrophils (test code = 49.5 % 39-69 05483-0) Lymphocytes (test code = 21.5 % 25-45 L 71618-0) Monocytes (test code = 24.5 % 0-10 H 77988-3) Eosinophils (test code = 3.0 % 0-5 83261-2) Basophils (test code = 0.5 % 0-1 54731-1) Immature granulocytes 1.0 % 0-1 "Immat ure (test code = 49768-2) granul ocytes" (promyelocytes, myelocytes, metamyelocytes) Lab Interpretation (test Abnormal code = 65709-0) [place] MethodistPrepare RBC, 4 [id number] 14:37:00 Test Item Value Reference Range Interpretation Comments Product name (test code Red Blood Cells -1, = 25) Leukored Unit number (test code [id number] = [id number]) Product code (test code [id number] = 3092) Dispense status (test Transfused code = 24) Blood expiration date [id number] (test code = 302) Blood type code (test 600 code = 308) Blood type (test code = A NEGATIVE 1314) Compatibility (test Compatible code = 6400) [place] MethodistVitamin B12 [id number] 13:27:42 Test Item Value Reference Range Interpretation Comments Vitamin B12 (test code 1346 pg/mL 211-946 H Signi ficant overlap = 2132-9) exists between normal and deficiency states.However, most patients with deficiencies wi ll have Serum B12 <200 pg/mL. Lab Interpretation Abnormal (test code = 20430-0) [place] MethodistFolate [id number] 13:27:42 Test Item Value Reference Range Interpretation Comments Folate (test code = 2284-8) >20.0 4.8-24.2 [place] MethodistFerritin [id number] 13:16:23 Test Item Value Reference Range Interpretation Comments Ferritin level (test code = 2276-4) 66 ng/mL 13-150 [place] MethodistTotal iron binding ulojlloa6931-00-73 13:14:02 Test Item Value Reference Range Interpretation Comments Iron level (test code = 2498-4) 11 ug/dL 37-145 L Iron binding capacity (test code = 182 ug/dL 200-400 L 2500-7) % Saturation (test code = 2502-3) 6.0 % 15-38 L Lab Interpretation (test code = Abnormal 30279-0) [place] FranklinistCOVID-19 qualitative [id number] 13:10:28 Test Item Value Reference Range Interpretation Comments Interpretation (test Negative results do code = 4529566) not preclude 2019-nCoV infection and should not be used as the sole basis for treatment or other patient management decisions. Negative results must be combined with clinical observations, patient history, and epidemiological information. COVID-19 qualitative Not-Detected Not-Detected PCR result (test code = 44537-1) COVID-19 qualitative See link below for C ase Number: PCR (test code = PDF Lab Report [id number] [phone]) [place] MethodistUrinalysis screen and microscopy, with reflex to culture 2019-11-22 12:24:07 Test Item Value Reference Range Interpretation Comments Specimen site (test code = Clean catch 1338374) Color, UA (test code = 5778-6) Yellow Appearance, UA (test code = Clear 5767-9) Specific gravity, UA (test code = 1.018 1.001-1.035 5811-5) pH, UA (test code = 5803-2) 5.0 5.0-8.5 Protein, UA (test code = 62403-7) Negative Negative Glucose, UA (test code = 36113-2) Negative Negative Ketones, UA (test code = 2514-8) Negative Negative Bilirubin, UA (test code = Negative Negative 5770-3) Blood, UA (test code = 5794-3) Negative Negative Nitrite, UA (test code = 5802-4) Negative Negative Urobilinogen, UA (test code = <2.0 <2.0 66975-4) Leukocyte esterase, UA (test code Negative Negative = 5799-2) Epithelial cells, UA (test code = <1 /HPF 5787-7) WBC, UA (test code = 5821-4) 3 0- 4 /HPF RBC, UA (test code = 46124-3) <1 0- 5 /HPF Bacteria, UA (test code = None seen None seen 12770-5) Yeast, UA (test code = 56998-9) None seen Yeast with pseudohyphae, UA (test None seen code = 61060-4) Hyaline casts, UA (test code = 4 /LPF 5796-8) [id number] 12:16:57 Test Item Value Reference Range Interpretation Comments Urine culture (test SEE COMMENT Bacteriu rachele screen code = 6105028) negative. [facility] [id number] 11:49:13 Test Item Value Reference Range Interpretation Comments POC glucose (test 94 mg/dL 65-99 Body Cleaner N roly: Mark code = 71035-9) CelciaDevice ID: [id number] able: [facility] Notified JOCE WallT4, [id number] 04:22:11 Test Item Value Reference Range Interpretation Comments T4, free (test code = 3024-7) 1.4 ng/dL 0.9-1.7 [place] WallThyroid stimulating [id number] 04:22:10 Test Item Value Reference Range Interpretation Comments TSH (test code = 3016-3) 1.30 0.27- 4.20 uIU/mL [place] MethodistType and [id number] 04:20:00 Test Item Value Reference Range Interpretation Comments ABO grouping (test code = 883-9) A Rh type (test code = 82572-4) NEG Antibody screen (gel) (test code = NEG 890-4) [place] MethodistComprehensive metabolic [id number] 04:19:40 Test Item Value Reference Range Interpretation Comments Sodium (test code = 133 135- 148 mEq/L L 2951-2) Potassium (test code = 3.6 3.5- 5.0 mEq/L 2823-3) Chloride (test code = 104 98- 112 mEq/L 2075-0) CO2 (test code = 2027-9) 16 24- 31 mEq/L L Anion gap (test code = 13@ANIO 7- 15 mEq/L 98275-3) BUN (test code = 3094-0) 21 mg/dL 6-20 H Creatinine (test code = 1.29 mg/dL 0.5-0.9 H 2160-0) Glucose (test code = 96 mg/dL 65-99 2345-7) Calcium (test code = 7.7 mg/dL 8.3-10.2 L 82992-4) Protein (test code = 4.9 g/dL 6.3-8.3 L -[place] n 2885-2) 4.6-7.0 g/dL1 week 4.4-7 .6 g/dL7 months-1y ear 5.1-7 .3 g/dL1-2 years 5.6-7 .5 g/dL>3 years 6.0-8 .0 g/xV72-037 6.3-8 .3 g/dL Albumin (test code = 1.7 g/dL 3.5-5 L 1751-7) A/G ratio (test code = 0.5 0.7-3.8 L 1759-0) Alkaline phosphatase 82 U/L 35-104 (test code = 6768-6) AST (test code = 1920-8) 27 U/L 10-35 ALT (test code = 1742-6) 26 U/L 5-50 Total bilirubin (test <0.2 0-1.2 code = 1975-2) Lab Interpretation (test Abnormal code = 83362-7) [place] MethodistMagnesium [id number] 04:19:38 Test Item Value Reference Range Interpretation Comments Magnesium (test code = 23400-9) 1.8 mg/dL 1.6-2.6 [place] MethodistPhosphorus [id number] 04:19:38 Test Item Value Reference Range Interpretation Comments Phosphorus (test code = 2777-1) 4.0 mg/dL 2.4-4.5 [place] QfyttzlrrGwbzsnyu7736-87-64 04:08:19 Test Item Value Reference Range Interpretation Comments Troponin (test code = <0.006 0-0.04 [place] [address]-6) having a myocar dial infarction, feroz ng with all other appro priate clinical measur es and actions includi ng ECG and other diagnosti cs as appropriate, wv asure Ultra TnI at 0 hrs and at 3 hrs.Myocardia l infarction VERY LIKELYThe 0 hr TnI level is > 0.10 ng/mL --Myocardial in farction LIKELYThe 0 hr TnI level is > 0.04 ng/mL and 3 hr level is increa sed or decreased by at least 0.020 ng/mL -------[place] cardial infarct ion VERY UNLIKELYBoth th e 0 hr and 3 hr TnI levels <= 0.04 ng/mL(within no rmal limits) OR 0 hr is > 0.04 ng/mL and 3 hr is increased OR de creased by less than 0.020 ng/mL [place] MethodistPartial thromboplastin time, [id number] 04:03:38 Test Item Value Reference Range Interpretation Comments PTT (test code = 47.8 23.0- 36.0 sec H PTT thera peutic range 46868-3) for unfractiona manuela heparin is61.0- 112.0 seconds which corresponds to Anti-Xa0.3-0.7 U/ml. Lab Interpretation Abnormal (test code = 41486-9) [place] MethodistProthrombin time with [id number] 04:02:43 Test Item Value Reference Range Interpretation Comments Prothrombin time (test 19.3 11.5- 14.5 sec H code = 5902-2) INR (test code = 1.6 The Interna tional 17548-1) Normalized Rati o (INR) is a therapeuti c monitoring tool for patients who ar e stable on oral anticoagulant t herapy. An INR of 2.0-3 .0 is suggested for d eep vein thrombosis/pulm onary embolism. Lab Interpretation Abnormal (test code = 88926-8) [place] MethodistAB HELICOBACTER [id number] 10:11:00 Test Item Value Reference Range Interpretation Comments AB HELICOBACTER IGG (test 0.27 0.00-0.79 IN FCE Result Units: code = HELIGAB) Index Value Negative <0.80 Equi vocal 0.80 - 0.89 Positive >0.89Performed At: [facility] [address] [id number] meng De La Fuente MD Ph:[phone] GLUCOSE BEDSIDE [id number] 08:52:00 Test Item Value Reference Range Interpretation Comments GLUCOSE BEDSIDE TESTING (test code 111 MG/DL 70-119 N = GLUBED) Novel Coronavirus 2019 [id number] 08:11:00 Test Item Value Reference Interpretation Comments Range Novel Not Detected Not Detected Testing was per formed using Coronavirus 2019 the [employer] SARS-CoV-2 Inhouse (test assay.This constantine t was developed code = and its perform ance ISMAELUI) characteristics determined by [facility]. This test has not be enFDA cleared or approved. Th is test has been authorized byFDA under an Emergency Us e Authorization ( EUA). This testis only aut horized for the duration of time the declarationthat circumstances exist justifyin g the authorization o fthe emergency use of in vitro diagnostic tests fordetect ion of SARS-CoV-2 viru s and/or diagnosis of COVID-19infecti on under section 564(b)( 1) of the Act, 21 U.S.C.360bbb -3(b)(1), unless the auth orization is terminated orre voked sooner. When diagnostic testing is negative, thepo ssibility of a false negative result should be consideredin the context of a patient's recent exposures and t hepresence of clinical signs and symptoms consistent with COVID-19. An individual with out symptoms of COVID-19 and who is not shedding SARS-C oV-2 virus would expect to have anegative (not detected) result in this assay.Performed At: [facility] [address] [id number] Mauri De La Fuente MD Ph:[phone] Testing Criteria Pre-Procedure ScreeningGLYCOSYLATED HEMOGLOBIN (HA1C)2019-11-11 06:45:00 Test Item Value Reference Range Interpretation Comments GLYCOSYLATED HEMOGLOBIN (HA1C) 5.7 % A1C 4.2-6.3 N (test code = GLYHGB) ESTIMATED AVERAGE [id number] 06:45:00 Test Item Value Reference Range Interpretation Comments ESTIMATED AVERAGE GLUCOSE (test 117 MG/DLest code = EAG) COMPREHENSIVE METABOLIC [id number] 06:40:00 Test Item Value Reference Range Interpretation Comments SODIUM (test code = 136.0 mmol/L 133-144 N NA) POTASSIUM (test code 4.5 mmol/L 3.5-5.1 N = K) CHLORIDE (test code 107 mmol/L 95-105 H = CL) CARBON DIOXIDE (test 27 mmol/L 21-32 N code = CO2) ANION GAP (test code 2.0 GAP calc 4.0-15.0 L = GAP) GLUCOSE (test code = 109 MG/DL 70-110 N GLU) BLOOD UREA NITROGEN 5 MG/DL 7-18 L (test code = BUN) GLOMERULAR 101 estGFR >60 The estimated FILTRATION RATE glomerular (test code = GFR) filtration rate is computed usingpatient ra ce, age, sex, and s ana creatinine. If any of theneeded da ta elements are mi ssing the Laboratory can notcompute an estimation of t he glomerular filtration rate .The GFR value units = ml/min/1.73 met er squared. EstimatedGFR va lues above 60 should be interpreted as >60, not anexact number.--- DRUG DOSAGE ALERT -- - Drug dosage adjustments uti lize different calculationpara meter s. CREATININE (test 0.62 MG/DL 0.55-1.30 N Results may be code = CREAT) depressed if p atient is takingN-Acetylc ystei ne (NAC) and Metamizole (Dipyrone). TOTAL PROTEIN (test 5.1 G/DL 6.4-8.2 L code = PROT) ALBUMIN (test code = 2.0 G/DL 3.4-5.0 L ALB) ALBUMIN/GLOBULIN 0.6 RATIO 1.2-2.2 L RATIO (test code = A/G) CALCIUM (test code = 7.8 MG/DL 8.5-10.1 L CA) BILIRUBIN TOTAL 0.35 MG/DL 0.00-1.00 N (test code = BILT) BILIRUBIN DIRECT 0.15 MG/DL 0.00-0.30 N (test code = BILD) BILIRUBIN INDIRECT 0.20 MG/DL 0.2-1.3 N (test code = BILIND) SGOT/AST (test code 15 Unit/L 15-37 N = AST) SGPT/ALT (test code 18 Unit/L 12-78 N = ALT) ALKALINE PHOSPHATASE 62 Unit/L 45-117 N TOTAL (test code = ALKP) INDEX HEMOLYSIS 1 NORMAL <10 1 NORMAL (test code = MG Index/DL HEMINDEX) INDEX ICTERIC (test 1 NORMAL <2 MG 1 NORMAL code = ICTINDEX) Index/DL INDEX LIPEMIA (test 1 NORMAL <50 1 NORMAL code = LIPINDEX) MG Index/DL COMPREHENSIVE METABOLIC [id number] 06:38:00 Test Item Value Reference Range Interpretation Comments SODIUM (test code = 136.0 mmol/L 133-144 N NA) POTASSIUM (test code 4.5 mmol/L 3.5-5.1 N = K) CHLORIDE (test code 107 mmol/L 95-105 H = CL) CARBON DIOXIDE (test 27 mmol/L 21-32 N code = CO2) ANION GAP (test code 2.0 GAP calc 4.0-15.0 L = GAP) GLUCOSE (test code = 109 MG/DL 70-110 N GLU) BLOOD UREA NITROGEN 5 MG/DL 7-18 L (test code = BUN) GLOMERULAR 101 estGFR >60 The estimated FILTRATION RATE glomerular (test code = GFR) filtration rate is computed usingpatient ra ce, age, sex, and s ana creatinine. If any of theneeded da ta elements are mi ssing the Laboratory can notcompute an estimation of t he glomerular filtration rate .The GFR value units = ml/min/1.73 met er squared. EstimatedGFR va lues above 60 should be interpreted as >60, not anexact number.--- DRUG DOSAGE ALERT -- - Drug dosage adjustments uti lize different calculationpara meter s. CREATININE (test 0.62 MG/DL 0.55-1.30 N Results may be code = CREAT) depressed if p atient is takingN-Acetylc ystei ne (NAC) and Metamizole (Dipyrone). TOTAL PROTEIN (test G/DL 6.4-8.2 code = PROT) ALBUMIN (test code = 2.0 G/DL 3.4-5.0 L ALB) ALBUMIN/GLOBULIN RATIO 1.2-2.2 RATIO (test code = A/G) CALCIUM (test code = 7.8 MG/DL 8.5-10.1 L CA) BILIRUBIN TOTAL MG/DL 0.00-1.00 (test code = BILT) BILIRUBIN DIRECT 0.15 MG/DL 0.00-0.30 N (test code = BILD) BILIRUBIN INDIRECT MG/DL 0.2-1.3 (test code = BILIND) SGOT/AST (test code 15 Unit/L 15-37 N = AST) SGPT/ALT (test code 18 Unit/L 12-78 N = ALT) ALKALINE PHOSPHATASE Unit/L 45-117 TOTAL (test code = ALKP) INDEX HEMOLYSIS 1 NORMAL <10 1 NORMAL (test code = MG Index/DL HEMINDEX) INDEX ICTERIC (test 1 NORMAL <2 MG 1 NORMAL code = ICTINDEX) Index/DL INDEX LIPEMIA (test 1 NORMAL <50 1 NORMAL code = LIPINDEX) MG Index/DL CBC W/AUTO [id number] 03:30:00 Test Item Value Reference Range Interpretation Comments WHITE BLOOD CELL (test code = 5.0 K/mm3 4.1-12.1 N WBC) RED BLOOD CELL (test code = RBC) 2.59 M/mm3 3.8-5.5 L HEMOGLOBIN (test code = HGB) 8.1 G/DL 10.6-15.8 L HEMATOCRIT (test code = HCT) 24.3 % 31.8-47.4 L MEAN CELL VOLUME (test code = 93.8 fL 80.1-101.1 N MCV) MEAN CELL HGB (test code = MCH) 31.3 pg 25.3-35.3 N MEAN CELL HGB CONCETRATION (test 33.3 G/DL 32.7-35.1 N code = MCHC) RED CELL DISTRIBUTION WIDTH 16.3 % 12.2-16.4 N (test code = RDW) RED CELL DISTRIBUTION WIDTH 52.7 fL 36.4-46.3 H (test code = RDW-SD) PLATELET COUNT (test code = PLT) 267 K/mm3 155-337 N MEAN PLATELET VOLUME (test code 10.5 fL 6.8-11.2 N = MPV) GRANULOCYTE % (test code = GR%) 63.2 % 37.8-82.6 N IMMATURE GRANULOCYTE % (test 2.2 % 0.0-2.0 H code = IG%) LYMPHOCYTE % (test code = LY%) 18.5 % 14.1-45.4 N MONOCYTE % (test code = MO%) 14.1 % 2.5-11.7 H EOSINOPHIL % (test code = EO%) 1.8 % 0.0-6.2 N BASOPHIL % (test code = BA%) 0.2 % 0.0-2.1 N NUCLEATED RBC % (test code = 0.4 /100WBC% 0.0-1.0 N NRBC%) GRANULOCYTE # (test code = GR#) 3.13 k/mm3 2.0-13.7 N IMMATURE GRANULOCYTE # (test 0.11 K/mm3 0.00-0.03 H code = IG#) LYMPHOCYTE # (test code = LY#) 0.92 K/mm3 0.6-3.8 N MONOCYTE # (test code = MO#) 0.70 K/mm3 0.11-0.59 H EOSINOPHIL # (test code = EO#) 0.09 K/mm3 0.0-0.4 N BASOPHIL # (test code = BA#) 0.01 K/mm3 0.0-0.1 N NUCLEATED RBC # (test code = 0.02 K/mm3 0.0-0.05 N NRBC#) CBC W/AUTO [id number] 12:23:00 Test Item Value Reference Range Interpretation Comments WHITE BLOOD CELL (test 6.1 K/mm3 4.1-12.1 N code = WBC) RED BLOOD CELL (test 1.71 M/mm3 3.8-5.5 LL code = RBC) HEMOGLOBIN (test code 5.4 G/DL 10.6-15.8 LL ON 09/23 AT = HGB) 0438, B.LAB.MEB CALLED TO RADHA Leone The report was confirmed by re ad back protocols Y,N: Y. HEMATOCRIT (test code 16.2 % 31.8-47.4 LL ON 09/23 AT = HCT) 0439, B.LAB.MEB CALLED TO RADHA Leone The report was confirmed by re ad back protocols Y,N: Y. MEAN CELL VOLUME (test 94.7 fL 80.1-101.1 N code = MCV) MEAN CELL HGB (test 31.6 pg 25.3-35.3 N code = MCH) MEAN CELL HGB 33.3 G/DL 32.7-35.1 N CONCETRATION (test code = MCHC) RED CELL DISTRIBUTION 16.1 % 12.2-16.4 N WIDTH (test code = RDW) RED CELL DISTRIBUTION 54.0 fL 36.4-46.3 H WIDTH (test code = RDW-SD) PLATELET COUNT (test 251 K/mm3 155-337 N code = PLT) MEAN PLATELET VOLUME 10.4 fL 6.8-11.2 N (test code = MPV) GRANULOCYTE % (test 66.1 % 37.8-82.6 N code = GR%) IMMATURE GRANULOCYTE % 2.5 % 0.0-2.0 H (test code = IG%) LYMPHOCYTE % (test 19.2 % 14.1-45.4 N code = LY%) MONOCYTE % (test code 11.2 % 2.5-11.7 N = MO%) EOSINOPHIL % (test 0.7 % 0.0-6.2 N code = EO%) BASOPHIL % (test code 0.3 % 0.0-2.1 N = BA%) NUCLEATED RBC % (test 0.3 /100WBC% 0.0-1.0 N code = NRBC%) GRANULOCYTE # (test 4.00 k/mm3 2.0-13.7 N code = GR#) IMMATURE GRANULOCYTE # 0.15 K/mm3 0.00-0.03 H (test code = IG#) LYMPHOCYTE # (test 1.16 K/mm3 0.6-3.8 N code = LY#) MONOCYTE # (test code 0.68 K/mm3 0.11-0.59 H = MO#) EOSINOPHIL # (test 0.04 K/mm3 0.0-0.4 N code = EO#) BASOPHIL # (test code 0.02 K/mm3 0.0-0.1 N = BA#) NUCLEATED RBC # (test 0.02 K/mm3 0.0-0.05 N code = NRBC#) MANUAL DIFF REQUIRED RBC (SCAN) CRITERIA (test code = MDIFF) DIFF/SCN DIFFERENTIAL [id number] 12:23:00 Test Item Value Reference Range Interpretation Comments POLYCHROMASIA (test code = SLIGHT ON SCAN NONE POLC) ELLIPTOCYTES (test code = ELL) FEW ON SCAN NONE TOXIC GRANULATION (test code = SLIGHT ON SCAN NONE TOX) PLATELET ESTIMATE (test code = ADEQ ON SCAN ADEQUATE PLTEST) PATHOLOGIST'S [id number] 12:23:00 Test Item Value Reference Range Interpretation Comments PATHOLOGIST'S FINDINGS REVIEW NOT INDICATED COMMENTS (test code = PATH) EXTERNAL COMPREHENSIVE METABOLIC [id number] 05:31:00 Test Item Value Reference Range Interpretation Comments SODIUM (test code = 132.0 mmol/L 133-144 L NA) POTASSIUM (test code 4.0 mmol/L 3.5-5.1 N = K) CHLORIDE (test code 102 mmol/L 95-105 N = CL) CARBON DIOXIDE (test 25 mmol/L 21-32 N code = CO2) ANION GAP (test code 5.0 GAP calc 4.0-15.0 N = GAP) GLUCOSE (test code = 90 MG/DL 70-110 N GLU) BLOOD UREA NITROGEN 7 MG/DL 7-18 (test code = BUN) GLOMERULAR 121 estGFR >60 The estimated FILTRATION RATE glomerular (test code = GFR) filtration rate is computed usingpatient ra ce, age, sex, and s ana creatinine. If any of theneeded da ta elements are mi ssing the Laboratory can notcompute an estimation of t he glomerular filtration rate .The GFR value units = ml/min/1.73 met er squared. EstimatedGFR va lues above 60 should be interpreted as >60, not anexact number.--- DRUG DOSAGE ALERT -- - Drug dosage adjustments uti lize different calculationpara meter s. CREATININE (test 0.53 MG/DL 0.55-1.30 L Results may be code = CREAT) depressed if p atient is takingN-Acetylc ystei ne (NAC) and Metamizole (Dipyrone). TOTAL PROTEIN (test 5.3 G/DL 6.4-8.2 L code = PROT) ALBUMIN (test code = 2.1 G/DL 3.4-5.0 L ALB) ALBUMIN/GLOBULIN 0.7 RATIO 1.2-2.2 L RATIO (test code = A/G) CALCIUM (test code = 7.7 MG/DL 8.5-10.1 L CA) BILIRUBIN TOTAL 0.50 MG/DL 0.00-1.00 N (test code = BILT) BILIRUBIN DIRECT 0.15 MG/DL 0.00-0.30 N (test code = BILD) BILIRUBIN INDIRECT 0.35 MG/DL 0.2-1.3 N (test code = BILIND) SGOT/AST (test code 14 Unit/L 15-37 L = AST) SGPT/ALT (test code 17 Unit/L 12-78 N = ALT) ALKALINE PHOSPHATASE 60 Unit/L 45-117 N TOTAL (test code = ALKP) INDEX HEMOLYSIS 1 NORMAL <10 1 NORMAL (test code = MG Index/DL HEMINDEX) INDEX ICTERIC (test 1 NORMAL <2 MG 1 NORMAL code = ICTINDEX) Index/DL INDEX LIPEMIA (test 1 NORMAL <50 1 NORMAL code = LIPINDEX) MG Index/DL FE W/TOTAL IRON BINDING CAP.2019-11-10 05:31:00 Test Item Value Reference Range Interpretation Comments SERUM IRON (test code = IRON) 30 mcG/DL 50-170 L TOTAL IRON BINDING CAPACITY (test 260 mcG/DL 250-450 N code = TIBC) IRON SATURATION (test code = 12 % calc 12-57 N FESAT) [id number] 05:31:00 Test Item Value Reference Range Interpretation Comments FERRITIN (test code = 105.5 NG/ML 3.0-105.0 H PREMEN OPAUSAL.....7-2 ANDREW) 83 NG/MLPOSTMENOPA USAL.. .14-233 NG/ML COMPREHENSIVE METABOLIC [id number] 04:56:00 Test Item Value Reference Range Interpretation Comments SODIUM (test code = NA) 132.0 mmol/L 133-144 L POTASSIUM (test code = K) 4.0 mmol/L 3.5-5.1 N CHLORIDE (test code = CL) 102 mmol/L 95-105 N CARBON DIOXIDE (test code mmol/L 21-32 = CO2) ANION GAP (test code = GAP calc 4.0-15.0 GAP) GLUCOSE (test code = GLU) MG/DL 70-110 BLOOD UREA NITROGEN (test MG/DL 7-18 code = BUN) CREATININE (test code = MG/DL 0.55-1.30 CREAT) TOTAL PROTEIN (test code G/DL 6.4-8.2 = PROT) ALBUMIN (test code = ALB) G/DL 3.4-5.0 ALBUMIN/GLOBULIN RATIO RATIO 1.2-2.2 (test code = A/G) CALCIUM (test code = CA) MG/DL 8.5-10.1 BILIRUBIN TOTAL (test MG/DL 0.00-1.00 code = BILT) BILIRUBIN DIRECT (test MG/DL 0.00-0.30 code = BILD) BILIRUBIN INDIRECT (test MG/DL 0.2-1.3 code = BILIND) SGOT/AST (test code = Unit/L 15-37 AST) SGPT/ALT (test code = Unit/L 12-78 ALT) ALKALINE PHOSPHATASE Unit/L 45-117 TOTAL (test code = ALKP) INDEX HEMOLYSIS (test 1 NORMAL <10 MG 1 NORMAL code = HEMINDEX) Index/DL INDEX ICTERIC (test code 1 NORMAL <2 MG 1 NORMAL = ICTINDEX) Index/DL INDEX LIPEMIA (test code 1 NORMAL <50 MG 1 NORMAL = LIPINDEX) Index/DL FE W/TOTAL IRON BINDING [id number] 04:56:00 Test Item Value Reference Range Interpretation Comments SERUM IRON (test code = IRON) mcG/DL 50-170 TOTAL IRON BINDING CAPACITY (test mcG/DL 250-450 code = TIBC) IRON SATURATION (test code = FESAT) % calc 12-57 [id number] 04:56:00 Test Item Value Reference Range Interpretation Comments FERRITIN (test code = ANDREW) NG/ML 3.0-105.0 PROTHROMBIN [id number] 04:32:00 Test Item Value Reference Range Interpretation Comments PT PATIENT (test code 20.6 SECONDS 9.4-12.5 H = PTP) INTERNATIONAL NORMAL 1.78 INR Unit 0.88-1.13 H ------ RATIO (test code = --------- INR) ---- --Therapeutic r gustavo for INR is dependent upon the situation.2.0-3 .0 Prophylaxis / venous thromboembolism , Treatment of DVT, Acute myocardial infarction stro ke prevention, Systemic emboli sm prevention in fibrillation3.0 -4.5 AMI recurrence prevention, Systemic emboli sm prevention in prosthetic hear t 3.0-5.4 AMI mortality reduc tion CBC W/AUTO [id number] 04:31:00 Test Item Value Reference Range Interpretation Comments WHITE BLOOD CELL (test code = 4.3 K/mm3 4.1-12.1 N WBC) RED BLOOD CELL (test code = RBC) 2.41 M/mm3 3.8-5.5 L HEMOGLOBIN (test code = HGB) 7.4 G/DL 10.6-15.8 L HEMATOCRIT (test code = HCT) 21.9 % 31.8-47.4 L MEAN CELL VOLUME (test code = 90.9 fL 80.1-101.1 N MCV) MEAN CELL HGB (test code = MCH) 30.7 pg 25.3-35.3 N MEAN CELL HGB CONCETRATION (test 33.8 G/DL 32.7-35.1 N code = MCHC) RED CELL DISTRIBUTION WIDTH 16.1 % 12.2-16.4 N (test code = RDW) RED CELL DISTRIBUTION WIDTH 51.8 fL 36.4-46.3 H (test code = RDW-SD) PLATELET COUNT (test code = PLT) 219 K/mm3 155-337 N MEAN PLATELET VOLUME (test code 9.9 fL 6.8-11.2 N = MPV) GRANULOCYTE % (test code = GR%) 67.6 % 37.8-82.6 N IMMATURE GRANULOCYTE % (test 3.5 % 0.0-2.0 H code = IG%) LYMPHOCYTE % (test code = LY%) 15.5 % 14.1-45.4 N MONOCYTE % (test code = MO%) 12.0 % 2.5-11.7 H EOSINOPHIL % (test code = EO%) 1.2 % 0.0-6.2 N BASOPHIL % (test code = BA%) 0.2 % 0.0-2.1 N NUCLEATED RBC % (test code = 0.7 /100WBC% 0.0-1.0 N NRBC%) GRANULOCYTE # (test code = GR#) 2.88 k/mm3 2.0-13.7 N IMMATURE GRANULOCYTE # (test 0.15 K/mm3 0.00-0.03 H code = IG#) LYMPHOCYTE # (test code = LY#) 0.66 K/mm3 0.6-3.8 N MONOCYTE # (test code = MO#) 0.51 K/mm3 0.11-0.59 N EOSINOPHIL # (test code = EO#) 0.05 K/mm3 0.0-0.4 N BASOPHIL # (test code = BA#) 0.01 K/mm3 0.0-0.1 N NUCLEATED RBC # (test code = 0.03 K/mm3 0.0-0.05 N NRBC#) CBC W/O [id number] 04:30:00 Test Item Value Reference Range Interpretation Comments WHITE BLOOD CELL (test code = WBC) 4.3 K/mm3 4.1-12.1 N RED BLOOD CELL (test code = RBC) 2.50 M/mm3 3.8-5.5 L HEMOGLOBIN (test code = HGB) 7.7 G/DL 10.6-15.8 L HEMATOCRIT (test code = HCT) 22.8 % 31.8-47.4 L MEAN CELL VOLUME (test code = MCV) 91.2 fL 80.1-101.1 N MEAN CELL HGB (test code = MCH) 30.8 pg 25.3-35.3 N MEAN CELL HGB CONCETRATION (test 33.8 G/DL 32.7-35.1 N code = MCHC) RED CELL DISTRIBUTION WIDTH (test 16.4 % 12.2-16.4 N code = RDW) PLATELET COUNT (test code = PLT) 223 K/mm3 155-337 N MEAN PLATELET VOLUME (test code = 10.3 fL 6.8-11.2 N MPV) CBC W/O [id number] 22:11:00 Test Item Value Reference Range Interpretation Comments WHITE BLOOD CELL (test code = WBC) 6.4 K/mm3 4.1-12.1 N RED BLOOD CELL (test code = RBC) 2.67 M/mm3 3.8-5.5 L HEMOGLOBIN (test code = HGB) 8.2 G/DL 10.6-15.8 L HEMATOCRIT (test code = HCT) 23.8 % 31.8-47.4 L MEAN CELL VOLUME (test code = MCV) 89.1 fL 80.1-101.1 N MEAN CELL HGB (test code = MCH) 30.7 pg 25.3-35.3 N MEAN CELL HGB CONCETRATION (test 34.5 G/DL 32.7-35.1 N code = MCHC) RED CELL DISTRIBUTION WIDTH (test 16.5 % 12.2-16.4 H code = RDW) PLATELET COUNT (test code = PLT) 225 K/mm3 155-337 N MEAN PLATELET VOLUME (test code = 9.9 fL 6.8-11.2 N MPV) CBC W/O [id number] 14:10:00 Test Item Value Reference Range Interpretation Comments WHITE BLOOD CELL (test code = WBC) 5.3 K/mm3 4.1-12.1 N RED BLOOD CELL (test code = RBC) 2.47 M/mm3 3.8-5.5 L HEMOGLOBIN (test code = HGB) 7.6 G/DL 10.6-15.8 L HEMATOCRIT (test code = HCT) 22.4 % 31.8-47.4 L MEAN CELL VOLUME (test code = MCV) 90.7 fL 80.1-101.1 N MEAN CELL HGB (test code = MCH) 30.8 pg 25.3-35.3 N MEAN CELL HGB CONCETRATION (test 33.9 G/DL 32.7-35.1 N code = MCHC) RED CELL DISTRIBUTION WIDTH (test 16.1 % 12.2-16.4 N code = RDW) PLATELET COUNT (test code = PLT) 209 K/mm3 155-337 N MEAN PLATELET VOLUME (test code = 10.0 fL 6.8-11.2 N MPV) COVID 19 Asymptomatic IH [id number] 11:32:00 Test Item Value Reference Range Interpretation Comments COVID 19 Asymptomatic Negative Neg ---COV ID IH AG (test code = INTERPRET ATION--- A COVNONPUIAG) negative result is presumptive and should be confirmedwit h an FDA authorized mole cular assay, if neces elizabeth forpatient paxton gement. A positive res ult does not rule out co-infections w ithother pathogens. Th is test detects both vi able (live) and non-viable,SARS -CoV, and SARS-CoV-2. Test performance dep ends on theamount of vi miguelito (antigen) in e sample. - XR CHEST 1 [id number] 07:49:00 FAX: Parris Montano MD [phone] [place]: St: [facility] FAX: Herbert Doran MD [phone] Patient Name: ANAMARIA ERICKSON Unit No: [id number] EXAMS: CPT CODE: [id number] XR CHEST 1 V [id number] Dictation location: H37. CHEST, FRONTAL VIEW HISTORY: gi bleed COMPARISON: None. FINDINGS: The lungs are clear without consolidation. No pleural effusion or pneumothorax. The heart size is normal. The bones are unremarkable. Right IJ Port-A-Cath within the SVC. IMPRESSION: No evidence of acute cardiopulmonary disease. at 0749 Reported and signed by: Ary Dale MD CC: Parris Cleveland Dictated Date/Time: 11/09/2019 (0749)Technologist: Barbara Gandhi Transcribed Date/Time: 11/09/2019 (0749) By: [email or web address] Orig Print D/T: S: 11/09/2019 (0752) [place] NAME: ANAMARIA ERICKSON IMAGING PHYS: Parris Noguera MD [address] [place] [address] BLVD : 1965 AGE: 54 SEX: F [place], [place] [address] LOC: ARACELI Matson PHONE #: [phone] EXAM DATE: 11/09/2019 STATUS: ADM IN FAX #: [phone] RAD NO: DC Dt: PAGE 1 Signed ReportHE[facility] W/AUTO [id number] 06:09:00 Test Item Value Reference Range Interpretation Comments WHITE BLOOD CELL (test 6.1 K/mm3 4.1-12.1 N code = WBC) RED BLOOD CELL (test 1.71 M/mm3 3.8-5.5 LL code = RBC) HEMOGLOBIN (test code 5.4 G/DL 10.6-15.8 LL ON 09/23 AT = HGB) 0438 BBrennenLAB.MEB CALLED TO RADHA Leone The report was confirmed by re ad back protocols Y,N: Y. HEMATOCRIT (test code 16.2 % 31.8-47.4 LL ON 09/23 AT = HCT) 0439, B.LAB.MEB CALLED TO RADHA Leone The report was confirmed by re ad back protocols Y,N: Y. MEAN CELL VOLUME (test 94.7 fL 80.1-101.1 N code = MCV) MEAN CELL HGB (test 31.6 pg 25.3-35.3 N code = MCH) MEAN CELL HGB 33.3 G/DL 32.7-35.1 N CONCETRATION (test code = MCHC) RED CELL DISTRIBUTION 16.1 % 12.2-16.4 N WIDTH (test code = RDW) RED CELL DISTRIBUTION 54.0 fL 36.4-46.3 H WIDTH (test code = RDW-SD) PLATELET COUNT (test 251 K/mm3 155-337 N code = PLT) MEAN PLATELET VOLUME 10.4 fL 6.8-11.2 N (test code = MPV) GRANULOCYTE % (test 66.1 % 37.8-82.6 N code = GR%) IMMATURE GRANULOCYTE % 2.5 % 0.0-2.0 H (test code = IG%) LYMPHOCYTE % (test 19.2 % 14.1-45.4 N code = LY%) MONOCYTE % (test code 11.2 % 2.5-11.7 N = MO%) EOSINOPHIL % (test 0.7 % 0.0-6.2 N code = EO%) BASOPHIL % (test code 0.3 % 0.0-2.1 N = BA%) NUCLEATED RBC % (test 0.3 /100WBC% 0.0-1.0 N code = NRBC%) GRANULOCYTE # (test 4.00 k/mm3 2.0-13.7 N code = GR#) IMMATURE GRANULOCYTE # 0.15 K/mm3 0.00-0.03 H (test code = IG#) LYMPHOCYTE # (test 1.16 K/mm3 0.6-3.8 N code = LY#) MONOCYTE # (test code 0.68 K/mm3 0.11-0.59 H = MO#) EOSINOPHIL # (test 0.04 K/mm3 0.0-0.4 N code = EO#) BASOPHIL # (test code 0.02 K/mm3 0.0-0.1 N = BA#) NUCLEATED RBC # (test 0.02 K/mm3 0.0-0.05 N code = NRBC#) MANUAL DIFF REQUIRED RBC (SCAN) CRITERIA (test code = MDIFF) DIFF/SCN DIFFERENTIAL [id number] 06:09:00 Test Item Value Reference Range Interpretation Comments POLYCHROMASIA (test code = SLIGHT ON SCAN NONE POLC) ELLIPTOCYTES (test code = ELL) FEW ON SCAN NONE TOXIC GRANULATION (test code = SLIGHT ON SCAN NONE TOX) PLATELET ESTIMATE (test code = ADEQ ON SCAN ADEQUATE PLTEST) PATHOLOGIST'S [id number] 06:09:00 Test Item Value Reference Range Interpretation Comments PATHOLOGIST'S FINDINGS (test code = EXTERNAL COMMENTS PATH) PT AND [id number] 04:55:00 Test Item Value Reference Interpretation Comments Range PT PATIENT (test 25.2 SECONDS 9.4-12.5 HH ON 11/09/19 AT 0455, code = PTP) B.LAB.BRIDGET Bravo TO RADHA LeoneThe report was conf irmed by read back jess susy Shine,N: Y.COLLECTION TH ROUGH LINES THAT HAVE BEEN PREVIOUSLY FLUS HEDWITH HEPARIN SHOULD BE AVOIDED DUE TO POSSIBLE HEPARINCONTAMIN ATION. INTERNATIONAL 2.17 INR 0.88-1.13 H NORMAL RATIO (test Unit --------- code = INR) ---------Therap eutic range for INR i s dependent upon the situation.2.0-3 .0 Prophylaxis / v enous thromboembolism , Treatment of DVT, Acute myocardia l infarction stro ke prevention, Systemic emboli sm prevention in fibrillation3.0 -4.5 AMI recurrence prev ention, Systemic emboli sm prevention in p rosthetic heart 3.0-5.4 A OH mortality reduc tion THROMBOPLASTIN TIME 34.2 SECONDS 24-37.7 N THERAPEU TIC RANGE FOR PARTIAL (test code UNFRACTIO NATED HEPARIN = = PTT) 50.5-83.6 SEC T his test is not recommen ded to monitor low molecularweight heparin or danaparoid. Order LMWH test COLLECTION THROUGH LINES THAT HAVE BEEN PREVIOUSLY FLUS HEDWITH HEPARIN SHOULD BE AVOIDED DUE TO POSSIBLE HEPARINCONTAMIN ATION BASIC METABOLIC [id number] 04:54:00 Test Item Value Reference Range Interpretation Comments SODIUM (test code = 132.0 mmol/L 133-144 L NA) POTASSIUM (test code 4.6 mmol/L 3.5-5.1 N = K) CHLORIDE (test code 100 mmol/L 95-105 N = CL) CARBON DIOXIDE (test 27 mmol/L 21-32 N code = CO2) ANION GAP (test code 5.0 GAP calc 4.0-15.0 N = GAP) GLUCOSE (test code = 113 MG/DL 70-110 H GLU) BLOOD UREA NITROGEN 18 MG/DL 7-18 N (test code = BUN) CREATININE (test 0.62 MG/DL 0.55-1.30 N Results may be code = CREAT) depressed if patient is takingN-Acetylc yste ine (NAC) and Metamizole (Dipyrone). CALCIUM (test code = 7.5 MG/DL 8.5-10.1 L CA) INDEX HEMOLYSIS 1 NORMAL <10 MG 1 NORMAL (test code = Index/DL HEMINDEX) INDEX ICTERIC (test 1 NORMAL <2 MG 1 NORMAL code = ICTINDEX) Index/DL INDEX LIPEMIA (test 1 NORMAL <50 MG 1 NORMAL code = LIPINDEX) Index/DL CBC W/AUTO [id number] 04:39:00 Test Item Value Reference Range Interpretation Comments WHITE BLOOD CELL (test 6.1 K/mm3 4.1-12.1 N code = WBC) RED BLOOD CELL (test 1.71 M/mm3 3.8-5.5 LL code = RBC) HEMOGLOBIN (test code 5.4 G/DL 10.6-15.8 LL ON 09/23 AT = HGB) 0438, B.LAB.MEB CALLED TO RADHA Leone The report was confirmed by re ad back protocols Y,N: Y. HEMATOCRIT (test code 16.2 % 31.8-47.4 LL ON 09/23 AT = HCT) 0439, B.LAB.MEB CALLED TO RADHA Leone The report was confirmed by re ad back protocols Y,N: Y. MEAN CELL VOLUME (test 94.7 fL 80.1-101.1 N code = MCV) MEAN CELL HGB (test 31.6 pg 25.3-35.3 N code = MCH) MEAN CELL HGB 33.3 G/DL 32.7-35.1 N CONCETRATION (test code = MCHC) RED CELL DISTRIBUTION 16.1 % 12.2-16.4 N WIDTH (test code = RDW) RED CELL DISTRIBUTION 54.0 fL 36.4-46.3 H WIDTH (test code = RDW-SD) PLATELET COUNT (test 251 K/mm3 155-337 N code = PLT) MEAN PLATELET VOLUME 10.4 fL 6.8-11.2 N (test code = MPV) GRANULOCYTE % (test 66.1 % 37.8-82.6 N code = GR%) IMMATURE GRANULOCYTE % 2.5 % 0.0-2.0 H (test code = IG%) LYMPHOCYTE % (test 19.2 % 14.1-45.4 N code = LY%) MONOCYTE % (test code 11.2 % 2.5-11.7 N = MO%) EOSINOPHIL % (test 0.7 % 0.0-6.2 N code = EO%) BASOPHIL % (test code 0.3 % 0.0-2.1 N = BA%) NUCLEATED RBC % (test 0.3 /100WBC% 0.0-1.0 N code = NRBC%) GRANULOCYTE # (test 4.00 k/mm3 2.0-13.7 N code = GR#) IMMATURE GRANULOCYTE # 0.15 K/mm3 0.00-0.03 H (test code = IG#) LYMPHOCYTE # (test 1.16 K/mm3 0.6-3.8 N code = LY#) MONOCYTE # (test code 0.68 K/mm3 0.11-0.59 H = MO#) EOSINOPHIL # (test 0.04 K/mm3 0.0-0.4 N code = EO#) BASOPHIL # (test code 0.02 K/mm3 0.0-0.1 N = BA#) NUCLEATED RBC # (test 0.02 K/mm3 0.0-0.05 N code = NRBC#) MANUAL DIFF REQUIRED RBC (SCAN) CRITERIA (test code = MDIFF) DIFF/SCN DIFFERENTIAL [id number] 04:39:00 Test Item Value Reference Range Interpretation Comments MORPHOLOGY COMMENT (test code = MOC) ON SCAN NORMAL RBCS PLATELET ESTIMATE (test code = ON SCAN ADEQUATE PLTEST) PATHOLOGIST'S [id number] 04:39:00 Test Item Value Reference Range Interpretation Comments PATHOLOGIST'S FINDINGS (test code = EXTERNAL COMMENTS PATH) CBC W/AUTO [id number] 04:39:00 Test Item Value Reference Range Interpretation Comments WHITE BLOOD CELL (test 6.1 K/mm3 4.1-12.1 N code = WBC) RED BLOOD CELL (test 1.71 M/mm3 3.8-5.5 LL code = RBC) HEMOGLOBIN (test code 5.4 G/DL 10.6-15.8 LL ON 09/23 AT = HGB) 0438, B.LAB.VAB CALLED TO RADHA Leone The report was confirmed by re ad back protocols Y,N: Y. HEMATOCRIT (test code 16.2 % 31.8-47.4 LL ON 09/23 AT = HCT) 0439, B.LAB.MEB CALLED TO RADHA Leone The report was confirmed by re ad back protocols Y,N: Y. MEAN CELL VOLUME (test 94.7 fL 80.1-101.1 N code = MCV) MEAN CELL HGB (test 31.6 pg 25.3-35.3 N code = MCH) MEAN CELL HGB 33.3 G/DL 32.7-35.1 N CONCETRATION (test code = MCHC) RED CELL DISTRIBUTION 16.1 % 12.2-16.4 N WIDTH (test code = RDW) RED CELL DISTRIBUTION 54.0 fL 36.4-46.3 H WIDTH (test code = RDW-SD) PLATELET COUNT (test 251 K/mm3 155-337 N code = PLT) MEAN PLATELET VOLUME 10.4 fL 6.8-11.2 N (test code = MPV) GRANULOCYTE % (test 66.1 % 37.8-82.6 N code = GR%) IMMATURE GRANULOCYTE % 2.5 % 0.0-2.0 H (test code = IG%) LYMPHOCYTE % (test 19.2 % 14.1-45.4 N code = LY%) MONOCYTE % (test code 11.2 % 2.5-11.7 N = MO%) EOSINOPHIL % (test 0.7 % 0.0-6.2 N code = EO%) BASOPHIL % (test code 0.3 % 0.0-2.1 N = BA%) NUCLEATED RBC % (test 0.3 /100WBC% 0.0-1.0 N code = NRBC%) GRANULOCYTE # (test 4.00 k/mm3 2.0-13.7 N code = GR#) IMMATURE GRANULOCYTE # 0.15 K/mm3 0.00-0.03 H (test code = IG#) LYMPHOCYTE # (test 1.16 K/mm3 0.6-3.8 N code = LY#) MONOCYTE # (test code 0.68 K/mm3 0.11-0.59 H = MO#) EOSINOPHIL # (test 0.04 K/mm3 0.0-0.4 N code = EO#) BASOPHIL # (test code 0.02 K/mm3 0.0-0.1 N = BA#) NUCLEATED RBC # (test 0.02 K/mm3 0.0-0.05 N code = NRBC#) MANUAL DIFF REQUIRED RBC (SCAN) CRITERIA (test code = MDIFF) DIFF/SCN DIFFERENTIAL [id number] 04:39:00 Test Item Value Reference Range Interpretation Comments MORPHOLOGY COMMENT (test code = MOC) ON SCAN NORMAL RBCS PLATELET ESTIMATE (test code = ON SCAN ADEQUATE PLTEST) PATHOLOGIST'S [id number] 04:39:00 Test Item Value Reference Range Interpretation Comments PATHOLOGIST'S FINDINGS (test code = EXTERNAL COMMENTS PATH) MRI Abdomen & Pelvis with and without [id number] 14:36:00 Primary neoplasm is noted within the uncinate process of the pancreas abuts the SMA, the splenic portal venous confluence, the SMV portal venous confluence and causes biliary and pancreatic ductal dilation, which is unchanged since the prior examination. No pelvic metastatic disease is noted. Stable right lower lobe pulmonary nodules are of concern for metastatic disease..Interface, Radiology Results In - 10/27/2019 9:38 AM CDTFULL RESULT:Examination: MRI ABDOMEN & PELVIS W AND WO CONTRAST 10/24/2019 1:15 PMClinical History: Primary adenocarcinoma of head of pancreasIndication: colon and pancreas cancer, rising CA 19-9 in setting of diffuse fatty liver disease. Evaluate liver to exclude mets.Further evaluation of stent and question of migrationTechnique: Axial T1- weighted, T2-weighted images and coronal SSFSE of the abdomen was performed. In phase/out of phase sequences and diffusion weighted sequences through the abdomen abdomen were obtained. Axial T1-weighted and T2-weighted images of the pelvis were performed. Also included was a diffusion weighted sequence. Following the administration of intravenous gadolinium 3-D dynamic images of the abdomen were performed. A postcontrast T1-weighted sequence through the pelvis was obtained. Pre and postcontrast MRI was performed.COMPARISON: October 04, 2018, October 16, 2018FINDINGS:No focal hepatic lesions identified to suggest malignancy. There isdiffuse hepatic steatosis (sequence 13 image 33) measures 2.6 x 3.3 cm. The gallbladder is normal. The mass present within the uncinate process of the pancreas is not well visualized however may be present on sequence 27 image 52) and causes pancreatic ductal dilation is noted measures approximately 2.0 x 2.1 cm. This encases the SMA and the SMV and causes pancreatic ductal dilation and biliary ductal dilation and abuts the SMV portal venous confluence.A right ventral abdominal hernia containing small bowel loops and colonic loops is noted. There is no evidence of strangulation or incarceration.An adenoma is noted within the left adrenal gland (series 13 image 26). The right adrenal gland is normal.There is no retroperitoneal adenopathy.The kidneys demonstrate symmetric contrast enhancement and there is no evidence of hydronephrosis. Cyst is noted within the left renal lower pole.Sections through the pelvis demonstrate no fluid collections. There is no pelvic or inguinal adenopathy. No definiteskeletal metastases are noted.Tiny nodules are noted within the right lower lobe (sequence 11 image 17, 11) are stable since the prior examination. The largest measures 0.7 x 0.4 cm.IMPRESSION:Primary neoplasm is noted within the uncinate process of the pancreas abuts the SMA, the splenic portal venous confluence, the SMV portal venous confluence and causes biliary and pancreatic ductal dilation, which is unchanged since the prior examination.No pelvic metastatic disease is noted.Stable right lower lobe pulmonary nodules are of concern for metastatic disease..MD [id number] 18:22:42 Test Item Value Reference Range Interpretation Comments Prealbumin (test code = 6855) 16.2 mg/dL 20-40 L Lab Interpretation (test code = Abnormal 81480-6) MD LoredoINTRAVENOUS PYELOGRAM (IVP) [place] [address] Patient Name: ANAMARIA ERICKSON MR #: [id number] : 1965 Age/Sex: 52/F Req #: [id number] Adm Physician: Ordered by: ELIZABET WALLER MD Report #: [id number] Location: DX Room/Bed: Procedure: [id number] DX/INTRAVENOUS PYELOGRAM (IVP) Exam Date: 10/09/17 Exam Time: 814 REPORT STATUS: Signed PROCEDURE: INTRAVENOUS PYELOGRAM (IVP) COMPARISON: None. INDICATIONS: CALCULUS OF THE KIDNEY TECHNIQUE: After obtaining a fender mechanic KUB, 100 were administered intravenously. Multiple frontal and bilateral obliqueimages of the abdomen and pelvis were obtained with and without compression. Post-void images were obtained. FINDING: Agent Spa Desk KUB: Nonobstructive bowel gas pattern. 7 and 8 mm rounded radiopaque densities projecting over the lower aspect of the liver may represent gallstones. 7 mm radiopaque density projects over the inferior pole of the right renal shadow. No radiopaque densities project over the expected course of the ureters. Kidneys: Renal positions, contours and sizes are normal. Bilateral excretion of contrast. Left calyxes and renal pelvis are normal without dilation or filling defects. The right calyxes and renal pelvis are dilated, mild to moderate hydronephrosis. No filling defects are identified. Ureters: Left ureter shows normal caliber without irregularity or filling defect. There is dilation of the proximal right ureter, which tapers to a point at the proximal to midportion. The rest of the ureter shows no significant intraluminal contrast during most of the exam until the 60 minute post contrast image and the postvoid image Bladder: Unremarkable. No filling defects. No significant post contrast. CONCLUSION: 1. Findings suggest obstruction at the mid to distal right ureter, which may be secondary to a radiolucent ureteral calculus. 2. 7 mm nonobstructing calculus in the right kidney. Boaz Quintero M.D. Dictated by: Boaz Quintero M.D. on 10/09/2017 at 19:56 Electronically approved by: Boaz Quintero M.D. on 10/09/2017 at 19:56 Dictated By: BOAZ QUINTERO MD 55 Transcribed By: ALFREDA on 10/09/171955 COPY TO: ELIZABET WALLER MD
--- OUTSIDE RECORDS SUMMARY | 2020-05-28 15:19 | XMS REPORT | Summary of Care ---
:1965 Author Organization [facility] Address [address] [place] [address] Care Team Providers Name Role Phone Marilin, L Primary Care Provider Encounter Details Date Type Department Care Team Description 03/25/2020 Orders Only [facility] Doctor Unassigned, No [address] [facility] [place] [address] [address] [place] [address] Allergies Active Allergy Reactions Severity Noted Date Comments Valproate Sodium Other - See comments High 05/13/2018 Samir merida swelling documented as of this encounter (statuses as of 03/30/2020) Medications Medication Sig Dispensed Refills Start Date End Date Status ARIPiprazole (ABILIFY) Take 10 mg by 0 Active 10 mg tablet mouth daily. gabapentin (NEURONTIN) Take 500 mg by 0 Active 100 mg capsule mouth 2 (two) times daily. DULoxetine 60 mg capsule Take 60 mg by 0 Active mouth daily. dextroamphetamine-amphet Take 30 mg by 0 Active amine (ADDERALL) 30 mg mouth daily. tablet topiramate 25 mg tablet Take 1 tablet 30 tablet 0 04/06/2018 Active by mouth 2 (two) times daily. buPROPion XL 150 mg 24 Take 1 tablet 0 Active hr tablet by mouth daily. carBAMazepine 200 mg Take 1 tablet 0 Active tablet by mouth daily. Diphenhydramine-Acetamin Take 1 Package 0 Active ophen (GOODY'S PM) by mouth daily. 38-500 mg Pack FENTanyl 50 mcg/hr patch Apply 1 Patch 0 06/19/2018 Active to skin every 72 (seventy-two) hours. loperamide 2 mg Take 4 mg after 30 capsule 0 07/05/2018 Active capsuleIndications: CINV 1st loose (chemotherapy-induced stool, then 2 nausea and vomiting), mg by mouth Malignant neoplasm of every 2 hr head of pancreas until 12 hr have passed with no loose stool. If diarrhea cont. after 12 hours, call MD. proCHLORperazine 10 mg Take 1 tablet 0 07/05/2018 Active tablet by mouth every 6 (six) hours as needed. Nausea or vomiting lisinopril 20 mg tablet Take 20 mg by 0 08/16/2018 Active mouth 2 (two) times daily. rosuvastatin 10 mg Take 1 tablet 0 08/16/2018 Active tablet by mouth at bedtime. zolpidem 10 mg tablet Take 1 tablet 0 08/09/2018 Active by mouth at bedtime. OXcarbazepine 150 mg Take 150 mg by 0 09/11/2018 Active tablet mouth every 8 (eight) hours as needed for Nausea and Vomiting (N/V). proMETHazine 25 mg TAKE 1 TABLET 2 09/16/2018 Active tablet BY MOUTH EVERY FOUR HOURS NEEDED FOR NAUSEA OR VOMITING KCL 20 mEq Take 1 tablet 30 tablet 0 10/21/2018 Acti ve tabletIndications: by mouth daily. Hypokalemia, gastrointestinal losses documented as of this encounter (statuses as of 03/30/2020) Active Problems Problem Noted Date Hypokalemia, gastrointestinal losses 09/16/2018 Hypomagnesemia 09/16/2018 Encounter for chemotherapy management 08/01/2018 Cheilitis 08/01/2018 Hyperlipidemia, unspecified hyperlipidemia type 2018 CINV (chemotherapy-induced nausea and vomiting) 2018 Chemotherapy-induced neutropenia 07/04/2018 Mass of right breast on mammogram 06/12/2018 Nephrolithiasis 06/11/2018 Overview: Added automatically from request for christiane ant [id number] Calculus of kidney 05/16/2018 Overview: Added automatically from request for christiane ant [id number] Attention deficit hyperactivity disorder (ADHD), unspe cified ADHD type 05/13/2018 Benign essential HTN 05/13/2018 Irritable bowel syndrome, unspecified type 05/13/2018 Fibromyalgia 05/13/2018 Seizures 05/13/2018 Anxiety with depression 05/13/2018 Bipolar affective disorder, remission status unspecifi ed 05/13/2018 Malignant neoplasm of head of pancreas 05/09/2018 Adenocarcinoma of transverse colon 05/09/2018 Cancer associated pain 05/09/2018 Obesity (BMI 30.0-34.9) 05/09/2018 History of substance abuse 05/09/2018 History of tobacco use 05/09/2018 Colon cancer 04/23/2018 Hydronephrosis with urinary obstruction due to uretera l calculus 04/17/2018 Overview: Added automatically from request for christiane cain [id number] Abdominal pain 03/28/2018 Choledocholithiasis 03/28/2018 Overview: Added automatically from request for christiane cain [id number] Right upper quadrant abdominal pain 03/28/2018 Overview: Added automatically from request for christiane cain [id number] Hypotension 07/05/2017 Obesity (BMI 30-39.9) 07/05/2017 documented as of this encounter (statuses as of 03/30/2020) Immunizations Name Administration Dates Next Due Influenza Virus Vaccine Quad .5 mL 04/06/2018 (Deferred: - Patient states IM 6+ MO she has already had flu shot this season) documented as of this encounter Social History Tobacco Use Types Packs/Day Years Used Date Current Every Day Smoker Cigarettes 0.5 Smokeless Tobacco: Former User Comments: 05/11 PPD X20 years Alcohol Use Drinks/Week oz/Week Comments No Sex Assigned at Date Recorded Not on file documented as of this encounter Last Filed Vital Signs Not on filedocumented in this encounter Plan of Treatment Health Maintenance Due Date Last Done Comments PNEUMOCOCCAL 0-64 YEARS COMBINED SERIES (1 of 3 - 1973 PCV13) Depression Screening 1979 DTaP,Tdap,and Td Vaccines (1 - Tdap) 1986 PAP SMEAR 1988 Zoster Recombinant Vaccine (SHINGRIX) (1 of 2) 2017 Breast Cancer Screening (MAMMOGRAM) 06/07/2019 06/07/2018 INFLUENZA VACCINE (#1) 2020 documented as of this encounter Implants Implanted Type Area Shank Cutter Device Shelf Model / Identifier Expiration Serial / Lot Date Port Port Right: ARROW 11/03/2022 [id number] / Implanted: Qty: 1 on 05/17/2018 at [facility] R AT [facility] Chest INTER[employer]ATIONAL [id number] / [id number] 7f 7cm Double-Pigtail Cbd Stent-03/29/2018 STENT Implanted: 03/29/2018 (Quantity not on file) Stent Advanix Biliary 7fr X 7cm [employer] #[id number] - S 0 STENT [employer] [id number] / Implanted: Qty: 1 on 03/29/2018 by Jose Blanco MD at [facility] 0 / [id number] Stent Advanix Biliary Double Pigtail 7f [employer] #[id number] - S0 STENT [employer] [id number] / Implanted: Qty: 1 on 04/05/2018 by Jose Blanco MD at [facility] 0 / 0 Advanix Pancreatic Stent 5fx5cm [employer] [id number] / Implanted: Qty: 1 on 03/29/2018 by Jose Blanco MD at [facility] 0 / [id number] documented as of this encounter Procedures Procedure Name Priority Date/Time Associated Diagnosis Comme nts DME/SUPPLY JUSTIFICATION Routine 03/25/2020 12:01 AM [employer]ER documented in this encounter Results Not on filedocumented in this encounter Insurance Payer Benefit Plan / Subscriber ID Effective Dates Phone Addre ss Type Group MEDICARE MEDICARE PART [id number] 2011-Randi [phone] Medicare A & B [place] 2 [id number] [place] [phone] documented as of this encounter
--- OUTSIDE RECORDS SUMMARY | 2020-05-28 15:20 | XMS REPORT | Summary of Care ---
:1965 Author Organization [facility] - [facility] Address [address] [place] [address] Care Team Providers Name Role Phone Marilin, L Primary Care Provider Encounter Details Date Type Department Care Team Description 05/10/2020 Orders Only [facility] Doctor Unassigned, No [address] [facility] [place] [address] [address] [place] [address] Allergies Active Allergy Reactions Severity Noted Date Comments Valproate Sodium Other - See comments High 05/13/2018 Samir merida swelling documented as of this encounter (statuses as of 05/11/2020) Medications Medication Sig Dispensed Refills Start Date [...] as of this encounter (statuses as of 05/11/2020) Active Problems Problem Noted Date Hypokalemia, gastrointestinal losses 09/16/2018 Hypomagnesemia 09/16/2018 Encounter for chemotherapy management 08/01/2018 Cheilitis 08/01/2018 Hyperlipidemia, unspecified hyperlipidemia type 2018 CINV (chemotherapy-induced nausea and vomiting) 2018 Chemotherapy-induced neutropenia 07/04/2018 Mass of right breast on mammogram 06/12/2018 Nephrolithiasis 06/11/2018 Overview: Added automatically from request for christiane ant [id number] Calculus of kidney 05/16/2018 Overview: Added automatically from request for christiane ant [id number] Attention deficit hyperactivity disorder (ADHD), unspe cified [...] Added automatically from request for christiane cain [id number] Abdominal pain 03/28/2018 Choledocholithiasis 03/28/2018 Overview: Added automatically from request for christiane cain [id number] Right upper quadrant abdominal pain 03/28/2018 Overview: Added automatically from request for christiane cain [id number] Hypotension 07/05/2017 Obesity (BMI 30-39.9) 07/05/2017 documented as of this encounter (statuses as of 05/11/2020) Immunizations Name Administration Dates Next Due Influenza [...] of this encounter Implants Implanted Type Area [employer]obile [employer] Counselor Device Shelf Model / Identifier Expiration Serial / Lot Date Port Port Right: ARROW 11/03/2022 [id number] / Implanted: Qty: 1 on 05/17/2018 at [facility] R AT [facility] Chest [employer]ATIONAL [id number] / [id number] 7f 7cm Double-Pigtail Cbd Stent-03/29/2018 STENT Implanted: 03/29/2018 (Quantity not on file) Stent Advanix Biliary 7fr X 7cm [employer] #[id number] - S 0 STENT [employer] [employer] [id number] / Implanted: Qty: 1 on 03/29/2018 by Jose Blanco MD at [facility] 0 / [id number] Stent Advanix Biliary Double Pigtail 7f 5c[employer]oston [employer]ie ntific #[id number] - S0 STENT [employer] [id number] / Implanted: Qty: 1 on 04/05/2018 by Jose Blanco MD at [facility] / 0 Advanix Pancreatic Stent 5fx5cm [employer] [id number] / Implanted: Qty: 1 on 03/29/2018 by Jose Blanco MD at [facility] 0 / [id number] documented as of this encounter Procedures Procedure Name Priority Date/Time Associated Diagnosis Comme nts DME/SUPPLY JUSTIFICATION Routine 05/10/2020 12:01 AM BAKER BENCH documented in this encounter Results Not on filedocumented in this encounter Insurance Payer Benefit Plan / Subscriber ID Effective Dates Phone Addre ss Type Group MEDICARE MEDICARE PART [id number] 2011-Randi [phone] Medicare A & B [place] 2 [id number] [place] [phone] documented as of this encounter
--- OUTSIDE RECORDS SUMMARY | 2020-05-28 15:20 | XMS REPORT ---
:1965 Author Organization [facility] Address 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 Problem Non-seasonal J30.89 Active 94242527 allergic rhinitis, unspecified trigger Problem Adenocarcinoma of C18.9 Active 123092660 colon Problem Irritable bowel K58.1 Active 442813749 syndrome with constipation Problem Current severe F32.2 Active 11851098 episode of major depressive disorder without psychotic features without prior episode Problem Bipolar affective F31.32 Active 226073295 disorder, currently depressed, moderate Problem Primary C25.0 Active 502069368499844 adenocarcinoma of head of pancreas Problem 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), predominantly inattentive type Problem Agranulocytosis D70.1 Active 05344589 secondary to cancer chemotherapy Problem Malignant neoplasm C25.2 Active 804909911 of tail of pancreas Problem Malignant neoplasm C25.0 Active 723876626 of head of pancreas Problem Generalized F41.1 Active 46135255 anxiety disorder Problem Primary insomnia F51.01 Active 5787458 Problem Grand mal seizure G40.409 Active 11685074 Problem Essential I10 Active 22234418 hypertension Problem GERD without K21.9 Active 005797165 esophagitis Problem Polyneuropathy G62.81 Active 860735301 associated with critical illness Problem Adenocarcinoma of C18.4 Active 18368456 transverse colon Problem 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.3 Active 355194973 Problem Mixed E78.2 Active 355943887 hyperlipidemia Problem RLS (restless legs G25.81 Active 27085836 syndrome) Problem Fibromyalgia M79.7 Active 661679183 ALLERGIES Allergen (clinical drug Drug/Non Drug Allergy Reaction Allergy Type Onset Date Status ingredient) documented on EMR valproate Depakote([facility] Unknown Drug Allergy Active Code:[address]-88) ENCOUNTERS from 1965 to 2020-05-04 Encounter Location Date Provider Diagnosis [facility] [place] [address] Apr, [facility] insomnia Family Medicine [address], [address] [place] [address] deficit hypera ctivity disorder (ADHD) , predominantly inattentive typ e F90.0 IMMUNIZATIONS No Information SOCIAL HISTORY Tobacco Use: [...] REASON FOR REFERRAL No Information VITAL SIGNS No information MEDICATIONS Medication SIG (Take, Route, Notes Start Date End Date Status Frequency, Duration) Omeprazole 20 MG 1 capsule 30 minutes Active before morning meal Orally Once a day Ropinirole HCl 2 MG 1 tablet 1 to 3 hours Active before bedtime Orally Once a day for 90 days Carbamazepine 200 MG 1 tablet Orally Twice a Active day for 90 days Fentanyl 100 MCG/HR 1 patch to skin Active Transdermal Lisinopril 20 MG 1 tablet Orally Once a Active day for 90 days Eszopiclone 2 MG 1 tablet immediately Active before bedtime Orally Once a day for 30 days Creon 25612 UNIT 2 capsule Orally three Active times a day Escitalopram Oxalate 20 MG 1 tablet Orally Once a Active day for 90 days Amphetamine-Dextroamphetam 1 tablet Orally Twice a May, Active ine 30 MG day for 30 days Ondansetron 8 MG 1 tablet on the tongue Active and allow to dissolve as needed Orally twice a day Ventolin HFA 108 (90 Base) 1 puff as needed Active MCG/ACT Inhalation every 4 hrs Rosuvastatin Calcium 10 MG 1 tablet Orally Once a Active day for 90 days Montelukast Sodium 10 MG 1 tablet Orally Once a Active day Gabapentin 400 MG 1 capsule Orally three Active times a day for 90 days PROCEDURES No Information RESULTS No Results REASON FOR VISIT RX Refill MEDICAL (GENERAL) HISTORY Type Description Date Medical [...] STATUS No Information ASSESSMENTS Encounter Date Diagnosis Assessment Notes Treatment Notes Treatm ent Clinical Notes Apr, Primary insomnia (ICD-10 - F51.01) Apr, Attention deficit hyperactivity disorder (ADHD), predominantly inattentive type (ICD-10 - F90.0) PLAN OF TREATMENT Medication Medication Name Sig Start Date Stop Date Lisinopril 20 MG 1 tablet Orally Once a day for 90 days Rosuvastatin Calcium 10 MG 1 tablet Orally Once a day for 90 days Fentanyl 100 MCG/HR 1 patch to skin Transdermal Carbamazepine 200 MG 1 tablet Orally Twice a day for 90 days Creon 94969 UNIT 2 capsule Orally three times a day Omeprazole 20 MG 1 capsule 30 minutes before morning meal Orally Once a day Escitalopram Oxalate 20 MG 1 tablet Orally Once a day for 90 days Ropinirole HCl 2 MG 1 tablet 1 to 3 hours before bedtime Orally Once a day for 90 days Ondansetron 8 MG 1 tablet on the tongue and allow to dissolve as needed Orally twice a day Montelukast Sodium 10 MG 1 tablet Orally Once a day Eszopiclone 2 MG 1 tablet immediately before bedtime Orally Once a day for 30 days Amphetamine-Dextroamphetamine 30 1 tablet Orally Twice a day May, MG for 30 days Ventolin HFA 108 (90 Base) 1 puff as needed Inhalation MCG/ACT every 4 hrs Gabapentin 400 MG 1 capsule Orally three times a day for 90 days Next Appt Details Provider Name:[facility] Jakob Snyderel, 2020-05-10 10:30:00 AM, [address], [address], [place], [address], Insurance Providers Payer Name Payer Address Payer Insured Patient Coverage Cover age Phone Name Relationship to Start Date End Date Insured MEDICARE Attn Part B [id number] Sindhu Williamson self [employer] Claims [address] [facility] [id number]
--- OUTSIDE RECORDS SUMMARY | 2020-05-28 15:20 | XMS REPORT | Summary of Care ---
:1965 Author Organization [facility] - [facility] Address [address] [place] [address] Care Team Providers Name Role Phone Marilin Leisa Primary Care Provider Reason for Visit Reason Comments Abdominal Pain Nausea Auth/Cert Status Reason Specialty Diagnoses / Referred By Referred To Procedures Contact Contact Emergency Medicine [facility] Em ergency Dept [address] [place] [address] Fax: Encounter Details Date Type Department Care Team Description 04/03/2020 - Emergency ADC-Emergency Doroteo Larsen DO Cancer related pain 04/04/[address] [place] [address]. (Primary Dx) [address] [facility] [address] [place], [place] [id number] [place] [address] [phone] Allergies Active Allergy Reactions Severity Noted Date Comments Valproate Sodium Other - See comments High 05/13/2018 Samir merida swelling documented as of this encounter (statuses as of 04/04/2020) Medications Medication Sig Dispensed Refills Start Date [...] as of this encounter (statuses as of 04/04/2020) Active Problems Problem Noted Date Hypokalemia, gastrointestinal losses 09/16/2018 Hypomagnesemia 09/16/2018 Encounter for chemotherapy management 08/01/2018 Cheilitis 08/01/2018 Hyperlipidemia, unspecified hyperlipidemia type 2018 CINV (chemotherapy-induced nausea and vomiting) 2018 Chemotherapy-induced neutropenia 07/04/2018 Mass of right breast on mammogram 06/12/2018 Nephrolithiasis 06/11/2018 Overview: Added automatically from request for christiane ant [id number] Calculus of kidney 05/16/2018 Overview: Added automatically from request for christiane ant [id number] Attention deficit hyperactivity disorder (ADHD), unspe cified [...] Added automatically from request for christiane cain [id number] Abdominal pain 03/28/2018 Choledocholithiasis 03/28/2018 Overview: Added automatically from request for christiane cain [id number] Right upper quadrant abdominal pain 03/28/2018 Overview: Added automatically from request for christiane cain [id number] Hypotension 07/05/2017 Obesity (BMI 30-39.9) 07/05/2017 documented as of this encounter (statuses as of 04/04/2020) Immunizations Name Administration Dates Next Due Influenza Virus Vaccine Quad .5 mL 04/06/2018 (Deferred: - Patient states IM 6+ MO she has already had flu shot this season) documented as of this encounter Social History Tobacco Use Types Packs/Day Years Used Date Current Every Day Smoker Cigarettes 0.5 Smokeless Tobacco: Former User Comments: 1 PPD X20 years Alcohol Use Drinks/Week oz/Week Comments No Sex Assigned at Date Recorded Not on file COVID-19 Exposure Response Date Recorded In the last month, have you been in contact with No / Unsure 04/03/2020 10:02 PM JACKSCREW MAN someone who was confirmed or suspected to have Coronavirus / COVID-19? documented as of this encounter Last Filed Vital Signs Vital Sign Reading Time Taken Comments Blood Pressure 114/93 04/04/2020 12:05 AM JACKSCREW MAN Pulse 102 04/04/2020 12:05 AM JACKSCREW MAN Temperature 36.4 C (97.6 F) 04/03/2020 10:07 PM JACKSCREW MAN Respiratory Rate 18 04/04/2020 12:05 AM JACKSCREW MAN Oxygen Saturation 97% 04/04/2020 12:05 AM JACKSCREW MAN Inhaled Oxygen Concentration - - Weight 78 kg (172 lb) 04/03/2020 10:07 PM JACKSCREW MAN Height 162.6 cm (5' 4") 04/03/2020 10:07 PM JACKSCREW MAN Body Mass Index 29.52 04/03/2020 10:07 PM JACKSCREW MAN documented in this encounter Discharge Instructions Doroteo BarraganDO - 04/03/2020 DIAGNOSIS Diagnoses that have been ruled out: None Diagnoses that are still under consideration: None Final diagnoses: Cancer related pain NO LIFE-THREATENING FINDINGS ON TODAY'S EXAM. PROCEDURES IN THE ER TODAY: Orders Placed This Encounter Procedures CBC WITH DIFF BASIC METABOLIC PANEL (NA, K, CL, CO2, GLUCOSE, BUN, CREATININE, CA) MEDICATIONS ADMINISTERED IN THE ER TODAY AND DISCHARGE MEDICATIONS: Orders Placed This Encounter Medications morpHINE injection 4 mg ondansetron (ZOFRAN (PF)) injection 4 mg FOLLOW-UP RECOMMENDATIONS: RECOMMEND FOLLOW-UP WITH A PRIMARY CARE PROVIDER OR SPECIALIST IN 2-5 DAYS, ESPECIALLY IF NO IMPROVEMENT IN SYMPTOMS. MAY FOLLOW-UP WITH A PROVIDER OF YOUR CHOICE, SUCH : 1. A PHYSICIAN OF YOUR CHOICE 2. [facility], . LOCATIONS IN [facility] 3. [facility], [address] [place] [address]; [phone] OR, IF YOU WISH TO FOLLOW-UP WITHIN THE [facility], MAY TRY THESE OPTIONS (CLINIC APPOINTMENTS AVAILABLE ON UZEB-VY-PURR BASIS): 1. SCHEDULE AN APPOINTMENT ONLINE AT [email or web address] 2. OR CALL THE [facility] AT OR 3. OR CALL YOUR [facility] PHYSICIAN'S OFFICE DIRECTLY IF YOU ARE ALREADY AN ESTABLISHED [facility] PATIENT. RETURN TO ER FOR WORSENING OF SYMPTOMS. AttachmentsThe following attachments cannot be sent through Care Everywhere. Chronic Pain, Managing (Georgian)documented in this encounter ED Notes Daly Mays RN - 04/03/2020 10:02 PM CSTCC: Patient states she is having abdominal pain that has increased over the last 4 hours. Patientwith c/o of nausea. Patient has a colostomy. Patient states she is terminal and patient is receiving chemo at this time. Last chemo last treating the pancreas. 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 see list for addtional PSH: see list MEDS: see list LMP: NA Tetanus: unknown Awake, alert, oriented, resp reg unlabored, skin warm, color appropriate for race, moves all ext without difficulty, amb with out assistance Appears in no distress Doroteo Rodriguez DO - 04/03/2020 9:56 PM CST EMERGENCY DEPARTMENT ENCOUNTER [facility] Patient Name: Anamaria Williamson Date of : 1965 54 year old Exam Room:CA5/CA5 Primary Care Physician: Giancarlo Gaston Pre- Hospital Patient Escorted by: Family [5] Mode of Arrival: Personal means [1] EMS Treatment Prior to ED Arrival: ENVIRONMENTAL ENGINEER treatment: Analgesic ENVIRONMENTAL ENGINEER treatment comments: fentayl patch, 2 tylenol Pm and restless legs medication Chief Complaint Chief Complaint Patient presents with Abdominal Pain Nausea HPI 54-year-old female with history of colon and pancreatic cancer. Patient has a colostomy with known prolapse. She states that she has had abdominal pain that is just increased in intensity over the last week or so. She is terminal however she is still on chemotherapy. She is on a pain contract [place] Kay [place]. She takes a fentanyl patch and has morphine for immediate release paincontrol. She states that she genuinely is here for pain control because she cannot get an appointment with Dr. Kay until next week. She wants to reassess her pain management at that time. She states that she has no new findings and is still having stool passing through the colostomy. Denies fever. Past Medical History / Immunizations Past Medical History: Diagnosis Date Colon cancer Colostomy care Depression Epilepsy Fibromyalgia HTN (hypertension) Hyperlipemia Insomnia Pancreatic cancer Smoker Suicidal ideations Tetanus received in last 5 years: No Past Surgical History Past Surgical History: Procedure Laterality Date COLONOSCOPY N/A 04/02/2018 Surgeon: Jose Rodgers MD; Location: [facility] OR Location COLOSTOMY LOOP N/A 04/23/2018 Surgeon: Paul Smith MD; Location: [facility] ENDOSCOPIC RETROGRADE CHOLANGIOPANCRETOGRAPHY N/A 03/29/2018 Surgeon: Jose Rodgers MD; Location: [facility] Location ENDOSCOPIC RETROGRADE CHOLANGIOPANCRETOGRAPHY N/A 04/05/2018 Surgeon: Jose Rodgers MD; Location: [facility] ([facility] OR Location UPPER ULTRASOUND (SHX) N/A 04/02/2018 Surgeon: Jose Rodgers MD; Location: [facility] ([facility] OR Location UPPER ULTRASOUND (SHX) N/A 04/05/2018 Surgeon: Jose Rodgers MD; Location: [facility] ([facility] OR Location URETERAL CATHETER PLACEMENT Right 04/26/2018 Surgeon: Carlos Eduardo Shen MD; Location: [facility] URETEROSCOPIC STONE MANIPULATION Right 06/17/2018 Surgeon: Carlos Eduardo Shen MD; Location: [facility] Location Allergies Allergies Allergen Reactions Valproate Sodium Other - See comments Tongue swelling Social History Tobacco Use Current Every Day Smoker; Smokes 0.5 packs/day; Smoked: Cigarettes. Smokeless Tobacco: Former user of smokeless tobacco. Comments: 05/11 PPD X20 years Alcohol Use No. Drug Use No. Sexual Activity Not sexually active. Review of Systems Review of Systems Constitutional: Negative for chills, fatigue and fever. HENT: Negative for sore throat. Eyes: Negative for pain. Respiratory: Negative for cough, chest tightness, shortness of breath and stridor. Breasts: Negative for pain. Cardiovascular: Negative for chest pain and palpitations. Gastrointestinal: Positive for abdominal pain. Negative for constipation and diarrhea. Genitourinary: Negative for bladder incontinence, vaginal discharge and difficulty urinating. Musculoskeletal: Negative for back pain. Skin: Negative for color change and wound. Neurological: Negative for dizziness, seizures, weakness, light-headedness and headaches. Physical Exam BP 130/85 | Pulse 105 | Temp 36.4 C (97.6 F) (Oral) | Resp 18 | Ht 1.626 m (5' 4") | Wt 78 kg (172 lb) | LMP (LMP Unknown) | SpO2 96% | BMI 29.52 kg/m Physical Exam Vitals signs and nursing note reviewed. Constitutional: General: She is not in acute distress. Appearance: She is well-developed. She is not diaphoretic. HENT: Head: Normocephalic and atraumatic. Right Ear: External ear normal. Left Ear: External ear normal. Nose: Nose normal. Eyes: General: No scleral icterus. Conjunctiva/sclera: Conjunctivae normal. Pupils: Pupils are equal, round, and reactive to light. Neck: Musculoskeletal: Normal range of motion and neck supple. Cardiovascular: Rate and Rhythm: Normal rate and regular rhythm. Heart sounds: Normal heart sounds. Pulmonary: Effort: Pulmonary effort is normal. Breath sounds: Normal breath sounds. Abdominal: General: Bowel sounds are normal. Palpations: Abdomen is soft. Tenderness: There is no abdominal tenderness. Comments: Colostomy with prolapsed colon. Abdomen is nontender and soft. Musculoskeletal: Normal range of motion. Skin: General: Skin is warm and dry. Neurological: Mental Status: She is alert and oriented to person, place, and time. Cranial Nerves: No cranial nerve deficit. Deep Tendon Reflexes: Reflexes are normal and symmetric. Psychiatric: Behavior: Behavior normal. Thought Content: Thought content normal. Labs Recent Results (from the past 24 hour(s)) CBC WITH DIFF Collection Time: 04/03/20 10:22 PM Result Value Ref Range WBC 4.21 (L) 4.30 - 11.10 10*3/L RBC 3.48 (L) 3.93 - 5.25 10*6/L HGB 9.1 (L) 11.6 - 15.0 g/dL HCT 30.0 (L) 35.7 - 45.2 % MCV 86.2 80.6 - 95.5 fL MCH 26.1 25.9 - 32.8 pg MCHC 30.3 (L) 31.6 - 35.1 g/dL RDW-SD 56.8 (H) 39.0 - 49.9 fL RDW-CV 18.2 (H) 12.0 - 15.5 % PLT 456 (H) 166 - 358 10*3/L MPV 10.0 9.5 - 12.9 fL NRBC/100 WBC 0.0 0.0 - 10.0 /100 WBCs NRBC x10^3 <0.01 10*3/L GRAN MAT (NEUT) % 63.7 % IMM GRAN % 0.70 % LYMPH % 17.1 % MONO % 16.4 % EOS % 1.4 % BASO % 0.7 % GRAN MAT x10^3(ANC) 2.68 1.88 - 7.09 10*3/uL IMM GRAN x10^3 0.03 0.00 - 0.06 10*3/uL LYMPH x10^3 0.72 (L) 1.32 - 3.29 10*3/uL MONO x10^3 0.69 0.33 - 0.92 10*3/uL EOS x10^3 0.06 0.03 - 0.39 10*3/uL BASO x10^3 0.03 0.01 - 0.07 10*3/uL BASIC METABOLIC PANEL (NA, K, CL, CO2, GLUCOSE, BUN, CREATININE, CA) Collection Time: 04/03/20 10:22 PM Result Value Ref Range NA 135 135 - 145 mmol/L K 3.9 3.5 - 5.0 mmol/L CL 104 98 - 108 mmol/L CO2 TOTAL 23 23 - 31 mmol/L AGAP 8 2 - 16 BUN 16 7 - 23 mg/dL GLUCOSE 198 (H) 70 - 110 mg/dL CREATININE 0.58 0.50 - 1.04 mg/dL CALCIUM 8.2 (L) 8.6 - 10.6 mg/dL eGFR Calculation (Non-) 109.2 mL/min/1.73m2 eGFR Calculation () 132.3 mL/min/1.73m2 Imaging No results found for this visit on 04/03/20. Orders and Treatments Orders Placed This Encounter Procedures CBC WITH DIFF BASIC METABOLIC PANEL (NA, K, CL, CO2, GLUCOSE, BUN, CREATININE, CA) Orders Placed This Encounter Medications morpHINE injection 4 mg ondansetron (ZOFRAN (PF)) injection 4 mg Procedures See ED Procedure Note Notes & MDM Patient was evaluated for an emergency medical condition related to Abdominal Pain and Nausea . Differential diagnoses considered by presenting complaints but not limited to: Cancer-related pain, obstruction, infection not otherwise specified, and others. Labs:were ordered, and resulted, any relevant abnormalities were considered. Imaging:Was not ordered IV fluids: not indicated Procedures:were not performed. Assessment: 54-year-old female with cancer related pain. Patient's work-up demonstrated chronic anemia as well as elevated glucose. White count is 4.21. No fever. No obstruction as she is still passing fecal matter into the colostomy bag. Pain is improved status post morphine. Patient feels okay to go home and does not want any imaging for further evaluation. History, physical exam findings, results of visit, differential diagnosis, medication regimens and plan of future care have been considered. Additional MDM may be found in the ED course. Differential diagnosis considered and final disposition made based on information gathered during evaluation and may not be completely ruled out or specifically listed. Vital signs were rechecked before final disposition and determined to be stable. Diagnosis ICD-10-CM ICD-9-CM 1. Cancer related pain G89.3 338.3 Disposition & Follow Up ED Disposition ED Disposition Condition Comment Disch - Home Stable Patient's Medications START taking these medications No medications on file CONTINUE taking these medications which have NOT CHANGED ARIPIPRAZOLE (ABILIFY) 10 MG TABLET Take 10 mg by mouth daily. BUPROPION XL 150 MG 24 HR TABLET Take 1 tablet by mouth daily. CARBAMAZEPINE 200 MG TABLET Take 1 tablet by mouth daily. DEXTROAMPHETAMINE-AMPHETAMINE (ADDERALL) 30 MG TABLET Take 30 mg by mouth daily. DIPHENHYDRAMINE-ACETAMINOPHEN (GOODY'S PM) 38-500 MG PACK Take 1 Package by mouth daily. DULOXETINE 60 MG CAPSULE Take 60 mg by mouth daily. FENTANYL 50 MCG/HR PATCH Apply 1 Patch to skin every 72 (seventy-two) hours. GABAPENTIN (NEURONTIN) 100 MG CAPSULE Take 500 mg by mouth 2 (two) times daily. KCL 20 MEQ TABLET Take 1 tablet by mouth daily. LISINOPRIL 20 MG TABLET Take 20 mg by mouth 2 (two) times daily. LOPERAMIDE 2 MG CAPSULE Take 4 mg after 1st loose stool, then 2 mg by mouth every 2 hr until 12 hr have passed with no loose stool. If diarrhea cont. after 12 hours, call MD. OXCARBAZEPINE 150 MG TABLET Take 150 mg by mouth every 8 (eight) hours as needed for Nausea and Vomiting (N/V). PROCHLORPERAZINE 10 MG TABLET Take 1 tablet by mouth every 6 (six) hours as needed. Nausea or vomiting PROMETHAZINE 25 MG TABLET TAKE 1 TABLET BY MOUTH EVERY FOUR HOURS NEEDED FOR NAUSEA OR VOMITING ROSUVASTATIN 10 MG TABLET Take 1 tablet by mouth at bedtime. TOPIRAMATE 25 MG TABLET Take 1 tablet by mouth 2 (two) times daily. ZOLPIDEM 10 MG TABLET Take 1 tablet by mouth at bedtime. START taking Modified Medications as Prescribed No medications on file STOP taking these medications No medications on file Contact information for follow-up Giancarlo Gaston Specialty: FM-FAMILY MEDICINE Relationship: PCP - [facility] [place] [address] Instructions: For follow up of the presenting symptoms. Missael Martinez Specialty: AN-PAIN MEDICINE [address] [facility] [address] [facility] [address] Instructions: For follow up of the presenting symptoms. ADC-Emergency Department Specialty: Emergency Medicine [address] [facility] [address] Instructions: If symptoms worsen as documented in the discharge Doroteo Larsen DO 04/03/2020 11:38 PM ACTIVE COVID-19 PANDEMIC. documented in this encounter Miscellaneous Notes ED Nurse Note - Genesis Arredondo RN - 04/04/2020 12:09 AM CSTPt given printed and verbal discharge instructions regarding cancer related patient encouraged hydration, Discussed antibiotic therapy and to take until all completed unless adverse reaction occurs - if occurs, discontinue medication and follow up with pcp/seek medical attention pt verbalized understanding of instructions, pt awake alert oriented, resp reg unlabored, skin w/d, color appropriate for race, moves all ext well,pt encouraged to follow up with pcp Advised to seek medical attention for new/prolonged/worsening of symptoms. No adverse reaction to meds given in ER noted upon discharge PIV d'cd, dressing to site, catheter in tact. Awake, alert oriented, resp reg unlabored, skin w/d, pt leaving amb with steady gait, in no apparent distress, D Nurse Note - Genesis Arredondo RN - 04/03/2020 11:41 PM CSTPT A&OX4, RESP EVEN AND UNLABORED, SKIN W&D AND NORMAL COLOR. Patient states she is feeling 75% better NO CHANGE TO IV SITE. PT AWARE OF PLAN OF CARE AND DENIES ANY CONCERNS. WILL CONTINUE TO MONITOR. D Nurse Note - Genesis Arredondo RN - 04/03/2020 10:27 PM CSTPT A&OX4, RESP EVEN AND UNLABORED, SKIN W&D AND NORMAL COLOR. PT GIVEN MED PER MD ORDERS, PTTOLERATED WELL, NO CHANGE TO IV SITE. PT AWARE OF PLAN OF CARE AND DENIES ANY CONCERNS. WILL CONTINUE TO MONITOR. documented in this encounter Plan of Treatment Health [...] of this encounter Implants Implanted Type Area Financial Operations Analyst Device Shelf Model / Identifier Expiration Serial / Lot Date Port Port Right: ARROW 11/03/2022 [id number] / Implanted: Qty: 1 on 05/17/2018 at [facility] [employer] Chest [employer]ATIONAL [id number] / [id number] 7f 7cm Double-Pigtail Cbd Stent-03/29/2018 STENT Implanted: 03/29/2018 (Quantity not on file) Stent Advanix Biliary 7fr X 7cm [employer] #[id number] - S 0 STENT [employer] [id number] / Implanted: Qty: 1 on 03/29/2018 by Jose Blanco MD at [facility] 0 / [id number] Stent Advanix Biliary Double Pigtail 7f [employer] nt[employer] #[id number] - S0 STENT [employer] [id number] / Implanted: Qty: 1 on 04/05/2018 by Jose Blanco MD at [facility] BLDG 0 / 0 Advanix Pancreatic Stent 5fx5cm [employer] [id number] / Implanted: Qty: 1 on 03/29/2018 by Jose Blanco MD at [facility] 0 / [id number] documented as of this encounter Procedures Procedure Name Priority Date/Time Associated Diagnosis Comme nts CBC WITH DIFF STAT 04/03/2020 10:22 PM Cancer related pain Results for this JACKSCREW MAN procedure are i n the results section. BASIC METABOLIC STAT 04/03/2020 10:22 PM Cancer related jayne n Results for this PANEL (NA, K, CL, JACKSCREW MAN procedure are in CO2, GLUCOSE, BUN, the resul ts CREATININE, CA) section. documented in this encounter Results BASIC METABOLIC PANEL (NA, K, CL, CO2, GLUCOSE, BUN, CREATININE, CA) (04/03/2020 10:22 PM JACKSCREW MAN) [facility] NA 135 135 - 145 [facility] mmol/L [facility] K 3.9 3.5 - 5.0 [facility] mmol/L [facility] CL 104 98 - 108 mmol/L [facility] CO2 TOTAL 23 23 - 31 mmol/L [facility] AGAP 8 2 - 16 [facility] BUN 16 7 - 23 mg/dL [facility] GLUCOSE 198 (H) 70 - 110 mg/dL [facility] CREATININE 0.58 0.50 - 1.04 [facility] mg/dL [facility] CALCIUM 8.2 (L) 8.6 - 10.6 [facility] mg/dL [facility] eGFR Calculation 109.2 mL/min/1.73m2 [facility] ([facility] [place] [facility] [place]) eGFR Calculation 132.3 mL/min/1.73m2 [facility] () [facility] Specimen Blood - VENOUS Narrative Performed At Association of Glomerular Filtration Rate (GFR) [facility] and Staging of Kidney Disease* + + +- + | GFR (mL/min/1.73 m2) | With Kidney Damage | Without Kidney Damage + + +- + | >90 | Stage one | Normal + + +- + | 60-89 | Stage two | Decreased GFR + + +- + | 30-59 | Stage three | Stage three + + +- + | 15-29 | Stage four | Stage four + + +- + | <15 (or dialysis) | Stage five | Stage five + + +- + *Each stage assumes the associated GFR level has been in effect for at least three months. Stages 1 to 5, with or without kidney disease, indicate chronic kidney disease. Notes: Determination of stages one and two (with eGFR >59mL/min/1.73 m2) requires estimation of kidney damage for at least three months as defined by structural or functional abnormalities of the kidney, manifested by either: Pathological abnormalities or Markers of kidney damage (including abnormalities in the composition of the blood or urine or abnormalities in imaging tests). Performing Organization Address City/State/Zipcode Phone Number [facility] CLIA: [id number] [place] [address] CBC WITH DIFF (04/03/2020 10:22 PM JACKSCREW MAN) Pathologist Sig nature WBC 4.21 (L) 4.30 - 11.10 [facility] 10*3/L [facility] RBC 3.48 (L) 3.93 - 5.25 [facility] 10*6/L [facility] HGB 9.1 (L) 11.6 - 15.0 [facility] g/dL [facility] HCT 30.0 (L) 35.7 - 45.2 % [facility] MCV 86.2 80.6 - 95.5 fL [facility] MCH 26.1 25.9 - 32.8 pg [facility] MCHC 30.3 (L) 31.6 - 35.1 [facility] g/dL [facility] RDW-SD 56.8 (H) 39.0 - 49.9 fL [facility] RDW-CV 18.2 (H) 12.0 - 15.5 % [facility] PLT 456 (H) 166 - 358 [facility] 10*3/L [facility] MPV 10.0 9.5 - 12.9 fL [facility] NRBC/100 WBC 0.0 0.0 - 10.0 /100 [facility] WBCs [facility] NRBC x10^3 <0.01 10*3/L [facility] GRAN MAT (NEUT) % 63.7 % [facility] IMM GRAN % 0.70 % [facility] LYMPH % 17.1 % [facility] MONO % 16.4 % [facility] EOS % 1.4 % [facility] BASO % 0.7 % [facility] GRAN MAT x10^3(ANC) 2.68 1.88 - 7.09 [facility] 10*3/uL HOSPITAL LAB[facility] IMM GRAN x10^3 0.03 0.00 - 0.06 [facility] 10*3/uL HOSPITAL LAB[facility] LYMPH x10^3 0.72 (L) 1.32 - 3.29 [facility] 10*3/uL [facility] MONO x10^3 0.69 0.33 - 0.92 [facility] 10*3/uL [facility] EOS x10^3 0.06 0.03 - 0.39 [facility] 10*3/uL [facility] BASO x10^3 0.03 0.01 - 0.[address]3/uL [facility] Specimen Blood - VENOUS Performing Organization Address City/State/Zipcode Phone Number [facility] CLIA: [id number] [place] [address] documented in this encounter Visit Diagnoses Diagnosis Cancer related pain - Primary Neoplasm related pain (acute) (chronic) documented in this encounter Administered Medications Medication Order MAR Action Action Date Dose Rate Site morpHINE injection 4 mg Given 04/03/2020 10:23 PM JACKSCREW MAN 4 mg 4 mg, Slow IV Push, ONCE, 1 dose, 04/03/20 at 2330, STAT ondansetron (ZOFRAN (PF)) injection 4 mg Given 04/03/2020 10:23 PM JACKSCREW MAN 4 mg 4 mg, Slow IV Push, ONCE, 1 dose, 04/03/20 at 2330, DIEGO documented in this encounter Insurance Payer Benefit Plan / Subscriber ID Effective Dates Phone Addre ss Type Group MEDICARE MEDICARE PART [id number] 2011-Prese [phone] [facility] Medicare A & B [place] 2 [id number] DELVIN CARUSO [id number] documented as of this encounter
--- OUTSIDE RECORDS SUMMARY | 2020-05-28 15:20 | XMS REPORT ---
:1965 Author Organization [facility] Address [address] [place], 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 Problem Non-seasonal J30.89 Active 64014703 allergic rhinitis, unspecified trigger Problem Adenocarcinoma of C18.9 Active 270291903 colon Problem Irritable bowel K58.1 Active 962025388 syndrome with constipation Problem Current severe F32.2 Active 54676972 episode of major depressive disorder without psychotic features without prior episode Problem Bipolar affective F31.32 Active 426925811 disorder, currently depressed, moderate Problem Primary C25.0 Active 271802688699472 adenocarcinoma of head of pancreas Problem 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 21904697 hyperactivity disorder (ADHD), predominantly inattentive type Problem Agranulocytosis D70.1 Active 92670285 secondary to cancer chemotherapy Problem Malignant neoplasm C25.2 Active 255863377 of tail of pancreas Problem Malignant neoplasm C25.0 Active 176454696 of head of pancreas Problem Generalized F41.1 Active 05660844 anxiety disorder Problem Primary insomnia F51.01 Active 8597583 Problem Grand mal seizure G40.409 Active 42426883 Problem Essential I10 Active 14539668 hypertension Problem GERD without K21.9 Active 818587878 esophagitis Problem Polyneuropathy G62.81 Active 565897512 associated with critical illness Problem Adenocarcinoma of C18.4 Active 07061478 transverse colon Problem 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.3 Active 392539581 Problem Mixed E78.2 Active 797318214 hyperlipidemia Problem RLS (restless legs G25.81 Active 67661899 syndrome) Problem Fibromyalgia M79.7 Active 756725096 ALLERGIES Allergen (clinical drug Drug/Non Drug Allergy Reaction Allergy Type Onset Date Status ingredient) documented on EMR valproate Depakote([facility] Unknown Drug Allergy Active Code:[address]-51) ENCOUNTERS from 1965 to 2020-05-10 Encounter Location Date Provider Diagnosis [place] [address] May, [facility] Malignant neoplasm of [address] Family [address] head of pancrea s C25.0 ; [place] [address] transverse colo n C18.4 ; Attention defic [...] No Information VITAL SIGNS Height 64.5 in May, Weight 172 lbs May, Temperature 98.5 degrees Fahrenheit May, BMI 29.06 kg/m2 May, Blood pressure systolic 129 mm Hg May, Blood pressure diastolic 82 mm Hg May, MEDICATIONS Medication SIG (Take, Route, Notes Start Date End Date Status Frequency, Duration) Ondansetron 8 MG 1 tablet on the tongue Active and allow to dissolve as needed Orally twice a day Ropinirole HCl 2 MG 1 tablet 1 to 3 hours Active before bedtime Orally Once a day for 90 days Montelukast Sodium 10 MG 1 tablet Orally Once a Active day Ventolin HFA 108 (90 Base) 1 puff as needed Active MCG/ACT Inhalation every 4 hrs Eszopiclone 2 MG 1 tablet immediately Active before bedtime Orally Once a day for 30 days Carbamazepine 200 MG 1 tablet Orally Twice a Active day for 90 days Fentanyl 100 MCG/HR 1 patch to skin Active Transdermal Gabapentin 600 MG 1 capsule Orally three Active times a day for 90 days Rosuvastatin Calcium 10 MG 1 tablet Orally Once a Active day for 90 days Omeprazole 20 MG 1 capsule 30 minutes Active before morning meal Orally Once a day Lisinopril 20 MG 1 tablet Orally Once a Active day for 90 days Amphetamine-Dextroamphetami 1 tablet Orally Twice a Active ne 30 MG day for 30 days Creon 54414 UNIT 2 capsule Orally three Active times a day Escitalopram Oxalate 20 MG 1 tablet Orally Once a Active day for 90 days PROCEDURES No Information RESULTS No Results REASON FOR VISIT 4wk f/u MEDICAL (GENERAL) HISTORY Type Description Date [...] No Information ASSESSMENTS Encounter Date Diagnosis Assessment Treatment Notes Treatment Notes Clinical Notes May, Malignant neoplasm of Managed by Chemo started. head of pancreas [place] (ICD-10 - C25.0) May, Adenocarcinoma of Managed by [facility] colon [place] (ICD-10 - C18.4) May, Attention deficit . Meets criteria. Refer ral to hyperactivity disorder Rx monitor. Refill psychiatry: (ADHD), predominantly given. , Upcomi ng inattentive type Extensively appointment (ICD-10 - F90.0) discussed side effect panel. Patient acceptable of [...] coerced/tempted into selling it or giving it May, Primary adenocarcinoma Managed by of head of pancreas [place] (ICD-10 - C25.0) May, Agranulocytosis Managed by secondary to cancer [place] chemotherapy (ICD-10 - D70.1) May, Bipolar affective . In process of Referr al to disorder, currently enrolling to psychiat ry depressed, moderate psychiatry. (ICD-10 - F31.32) Education given May, Current severe episode . Refill given. of major depressive Side effect panel disorder without discussed. psychotic features Education givenm. , without prior episode -- Depression (ICD-10 - F32.2) Education: Depression is a brain disease that [...] (such as a psychiatrist, psychologist, nurse or aids social worker) may be necessary to treat depression. Both treatments take time to work. If you ever feel like you might hurt yourself or some else, then call your doctor or call 911 or go to the ER. May, Primary insomnia . Discussed good . refe rral to (ICD-10 - F51.01) sleep hygiene psychiatr y extensively with patient. Education given. Rx monitor. Refill given. Side effect panel discussed May, Grand mal seizure . Stable with (ICD-10 - G40.409) current regimen. Encouraged to make appointment with neurology. Patient vocalized understanding May, Rectal prolapse . Managed by GI (ICD-10 - K62.3) and colorectal surgeon May, Polyneuropathy Intermittent associated with control therefore critical illness will increase to (ICD-10 - G62.81) 600 mg 3 times a day.. Education given. Side effect panel discussed. Refill given May, Cancer associated pain . Managed by pain (ICD-10 - G89.3) management May, Colostomy in place Managed by GI. (ICD-10 - Z93.3) Care done by home. 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 Controlled with (ICD-10 - I10) current regimen. Education given. , DASH Diet [...] go to the ER immediately to address. May, Generalized anxiety . Stable with disorder (ICD-10 - current regimen. F41.1) Education given. , -- Anxiety Education: Anxiety [...] massages maybe necessary to treat this disorder. May, Mixed hyperlipidemia . Continue current (ICD-10 - E78.2) regimen. Refill given. Side effect panel discussed. [...] you have questions, talk to your doctor. May, Fibromyalgia (ICD-10 - . Stable with M79.7) gabapentin May, Perforation of colon Managed by surgeon. (ICD-10 - K63.1) May, Irritable bowel . Colostomy in syndrome with place constipation (ICD-10 - K58.1) May, RLS (restless legs Intermittent syndrome) (ICD-10 - controlled; G25.81) INCREASED to 2 mg. Education given. Discussed supportive measures for symptomatic relief. Refill given May, GERD without . Discussed esophagitis (ICD-10 - long-term impact of K21.9) PPI usage. Education given May, Adverse effect of antineoplastic and immunosuppressive drugs, initial encounter (ICD-10 - T45.1X5A) May, Nausea (ICD-10 - . Managed by R11.0) oncology and pain management May, Non-seasonal allergic . Stable with rhinitis, unspecified current regimen trigger (ICD-10 - J30.89) May, Former heavy tobacco . Commended on smoker (ICD-10 - cessation Z87.891) May, Other -- Medication Medical releas e reviewed and form signed for updated. last PCP and MD -- Dietary and Facundo. Lifestyle modifications addressed regarding diet, exercise and weight managemen t. -- Treatment options, risks and benefits, side effects reviewed in detail. -- Advised on signs/symptoms to monitor and when to call clinic and/or visit the nearest ER. Patient verbalized understanding and agreeable with plan. PLAN OF TREATMENT Medication Medication Name Sig Start Date Stop Date Eszopiclone 2 MG 1 tablet immediately before bedtime Orally Once a day for 30 days Amphetamine-Dextroamphetamine 30 1 tablet Orally Twice a day for MG 30 days Ventolin HFA 108 (90 Base) 1 puff as needed Inhalation MCG/ACT every 4 hrs Montelukast Sodium 10 MG 1 tablet Orally Once a day Fentanyl 100 MCG/HR 1 patch to skin Transdermal Ondansetron 8 MG 1 tablet on the tongue and allow to dissolve as needed Orally twice a day Gabapentin 600 MG 1 capsule Orally three times a day for 90 days Ropinirole HCl 2 MG 1 tablet 1 to 3 hours before bedtime Orally Once a day for 90 days Omeprazole 20 MG 1 capsule 30 minutes before morning meal Orally Once a day Creon 37575 UNIT 2 capsule Orally three times a day Carbamazepine 200 MG 1 tablet Orally Twice a day for 90 days Rosuvastatin Calcium 10 MG 1 tablet Orally Once a day for 90 days Lisinopril 20 MG 1 tablet Orally Once a day for 90 days Escitalopram Oxalate 20 MG 1 tablet Orally Once a day for 90 days Treatment Notes Assessment Notes Clinical Notes Essential [...] questions, talk to your doctor. Attention deficit . Meets criteria. Rx monitor. Referral t o psychiatry: hyperactivity disorder (ADHD), Refill given. , Extensively U pcoming appointment predominantly inattentive type discussed side effect panel. Patient [...] by surgeon. Agranulocytosis secondary to Managed by [facility] cancer chemotherapy Fibromyalgia . Stable with gabapentin Bipolar affective disorder, . In process of enrolling to Re ferral to psychiatry currently depressed, moderate psychiatry. Education given RLS (restless legs syndrome) Intermittent controlled; INCREASED to 2 mg. Education given. Discussed supportive measures for symptomatic relief. Refill given Current severe episode of . Refill given. Side effect major depressive disorder panel discussed. Education without psychotic features givenm. , -- Depression without prior episode Education: Depression is a brain [...] (such as a psychiatrist, psychologist, nurse or aids social worker) may be necessary to treat [...] . Managed by pain management Non-seasonal allergic . Stable with current rhinitis, unspecified trigger regimen Polyneuropathy associated with Intermittent control critical illness therefore will increase to 600 mg 3 times a day.. Education given. Side effect panel discussed. Refill [...] and colorectal surgeon Next Appt Details 4 weeks + AMW + Labs same Reason: Insurance Providers Payer Name Payer Address Payer Insured Patient Coverage Cover age Phone Name Relationship to Start Date End Date Insured MEDICARE Attn Part B [id number] Sindhu Williamson self [employer] Claims [address] [facility] [address]
--- OUTSIDE RECORDS SUMMARY | 2020-05-28 15:20 | XMS REPORT ---
:1965 Author Organization [facility] Address [address] 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 Problem Non-seasonal J30.89 Active 34190232 allergic rhinitis, unspecified trigger Problem Adenocarcinoma of C18.9 Active 834544804 colon Problem Irritable bowel K58.1 Active 175991636 syndrome with constipation Problem Current severe F32.2 Active 06139704 episode of major depressive disorder without psychotic features without prior episode Problem Bipolar affective F31.32 Active 132923901 disorder, currently depressed, moderate Problem Primary C25.0 Active 041891290180149 adenocarcinoma of head of pancreas Problem 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 49471766 hyperactivity disorder (ADHD), predominantly inattentive type Problem Agranulocytosis D70.1 Active 48439638 secondary to cancer chemotherapy Problem Malignant neoplasm C25.2 Active 288279482 of tail of pancreas Problem Malignant neoplasm C25.0 Active 974057561 of head of pancreas Problem Generalized F41.1 Active 04569573 anxiety disorder Problem Primary insomnia F51.01 Active 3834413 Problem Grand mal seizure G40.409 Active 79470525 Problem Essential I10 Active 71423677 hypertension Problem GERD without K21.9 Active 355261665 esophagitis Problem Polyneuropathy G62.81 Active 470037183 associated with critical illness Problem Adenocarcinoma of C18.4 Active 55807582 transverse colon Problem 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.3 Active 332886980 Problem Mixed E78.2 Active 179801722 hyperlipidemia Problem RLS (restless legs G25.81 Active 23999031 syndrome) Problem Fibromyalgia M79.7 Active 563080299 ALLERGIES Allergen (clinical drug Drug/Non Drug Allergy Reaction Allergy Type Onset Date Status ingredient) documented on EMR valproate Depakote([facility] Unknown Drug Allergy Active Code:[address]-96) ENCOUNTERS from 1965 to 2020-04-07 Encounter Location Date Provider Diagnosis [facility] [address] Apr, [facility] Malignant neoplasm of Drive Family [address] head of pancrea s C25.0 ; Medicine [place], [place] [address] transverse colo n C18.4 ; Attention defic [...] No Information VITAL SIGNS Height 64.5 in Apr, Weight 170 lbs Apr, Temperature 97.4 degrees Fahrenheit Apr, BMI 28.73 kg/m2 Apr, Blood pressure systolic 131 mm Hg Apr, Blood pressure diastolic 80 mm Hg Apr, MEDICATIONS Medication SIG (Take, Route, Notes Start Date End Date Status Frequency, Duration) Montelukast Sodium 10 MG 1 tablet Orally Once a Active day Ropinirole HCl 2 MG 1 tablet [...] before morning meal Orally Once a day Ondansetron 8 MG 1 tablet on the tongue Active and allow to dissolve as needed Orally twice a day Eszopiclone 2 MG 1 tablet immediately Active before bedtime Orally Once a day for 30 days Ventolin HFA 108 (90 Base) 1 puff as needed Active MCG/ACT Inhalation every 4 hrs Escitalopram Oxalate 20 MG 1 tablet Orally Once a Active day for 90 days Creon 84880 UNIT 2 capsule Orally three Active times a day Rosuvastatin Calcium 10 MG 1 tablet Orally Once a Active day for 90 days Amphetamine-Dextroamphetam 1 tablet Orally Twice a Apr, Active ine 30 MG day for 30 days Gabapentin 400 MG 1 capsule Orally [...] Assessment Treatment Notes Treatment Notes Clinical Notes Apr, Malignant neoplasm of Managed by MD Chemo started. head of pancreas [place] (ICD-10 - C25.0) Apr, Adenocarcinoma of Managed by [facility] colon [place] (ICD-10 - C18.4) Apr, Attention deficit . Meets criteria. Refer ral [...] coerced/tempted into selling it or giving it Apr, Primary adenocarcinoma Managed by MD of head of pancreas [place] (ICD-10 - C25.0) Apr, Agranulocytosis Managed by MD secondary to cancer [place] chemotherapy (ICD-10 - D70.1) Apr, Bipolar affective . In process of Referr al to disorder, currently enrolling to psychiat ry depressed, moderate psychiatry. (ICD-10 - F31.32) Education given Apr, Current severe episode . Refill given. of [...] (such as a psychiatrist, psychologist, nurse or social work lecturer) may be necessary to treat depression. Both treatments take time to work. If you ever feel like you might hurt yourself or some else, then call your doctor or call 911 or go to the ER. Apr, Primary insomnia . Discussed good . refe rral to (ICD-10 - F51.01) sleep hygiene psychiatr y extensively with patient. Education given. Rx monitor. Refill given. Side effect panel discussed Apr, Grand mal seizure . Stable with (ICD-10 - G40.409) current regimen. Encouraged to make appointment with neurology. Patient vocalized understanding Apr, Rectal prolapse . Managed by GI (ICD-10 - K62.3) and colorectal surgeon Apr, Polyneuropathy . Stable with associated with current regimen. critical illness Education given. (ICD-10 - G62.81) Side effect panel discussed. Refill given Apr, Cancer associated pain . Managed by pain (ICD-10 - G89.3) management Apr, Colostomy in place Managed by GI. (ICD-10 - Z93.3) Care done by home. 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 Controlled with (ICD-10 - [...] go to the ER immediately to address. Apr, Generalized anxiety . Stable with disorder (ICD-10 [...] massages maybe necessary to treat this disorder. Apr, Mixed hyperlipidemia . Continue current (ICD-10 - [...] you have questions, talk to your doctor. Apr, Fibromyalgia (ICD-10 - . Stable with M79.7) gabapentin Apr, Perforation of colon Managed by surgeon. (ICD-10 - K63.1) Apr, Irritable bowel . Colostomy in syndrome with place constipation (ICD-10 - K58.1) Apr, RLS (restless legs Intermittent syndrome) (ICD-10 - controlled; G25.81) INCREASED to 2 mg. Education given. Discussed supportive measures for symptomatic relief. Refill given Apr, GERD without . Discussed esophagitis (ICD-10 - long-term impact of K21.9) PPI usage. Education given Apr, Adverse effect of antineoplastic and immunosuppressive drugs, initial encounter (ICD-10 - T45.1X5A) Apr, Nausea (ICD-10 - . Managed by R11.0) oncology and pain management Apr, Non-seasonal allergic . Stable with rhinitis, unspecified current regimen trigger (ICD-10 - J30.89) Apr, Former heavy tobacco . Commended on smoker (ICD-10 - cessation Z87.891) Apr, Other -- Medication Medical releas e reviewed [...] Orally Once a day for 30 days Ropinirole HCl 2 MG 1 tablet 1 to 3 hours before bedtime Orally Once a day for 90 days Escitalopram Oxalate 20 MG 1 tablet Orally Once a day for 90 days Amphetamine-Dextroamphetamine 30 1 tablet Orally Twice a day Apr, 2019 MG for 30 days Omeprazole 20 MG 1 capsule 30 minutes before morning meal Orally Once a day Ventolin HFA 108 (90 Base) 1 puff as needed Inhalation MCG/ACT every 4 hrs Creon 68586 UNIT 2 capsule Orally three times a day Gabapentin 400 MG 1 capsule Orally three times a day for 90 days Treatment Notes [...] by surgeon. Agranulocytosis secondary to Managed by [facility] cancer chemotherapy Fibromyalgia . Stable with gabapentin [...] (such as a psychiatrist, psychologist, nurse or social work lecturer) may be necessary to treat depression. Both [...] rhinitis, unspecified trigger regimen Polyneuropathy associated with . [...] Next Appt Details 4 Weeks TV Reason: Insurance Providers Payer Name Payer Address Payer Insured Patient Coverage Cover age Phone Name Relationship to Start Date End Date Insured MEDICARE Attn Part B [id number] Sindhu Williamson [employer] Claims [phone] [facility] [address]
--- OUTSIDE RECORDS SUMMARY | 2020-05-28 15:20 | XMS REPORT | Summary of Care ---
:1965 Author Organization [facility] Address [address] [place] [address] Care Team Providers Name Role Phone Marilin, L Primary Care Provider Encounter Details Date Type Department Care Team Description 04/03/2020 Orders Only [facility] Doctor Unassigned, No [address] [facility] [place] [address] [address] [place] [address] Allergies Active Allergy Reactions Severity Noted Date Comments Valproate Sodium Other - See comments High 05/13/2018 Samir merida swelling documented as of this encounter (statuses as of 04/03/2020) Medications Medication Sig Dispensed Refills Start Date [...] as of this encounter (statuses as of 04/03/2020) Active Problems Problem Noted Date Hypokalemia, gastrointestinal losses 09/16/2018 Hypomagnesemia 09/16/2018 Encounter for chemotherapy management 08/01/2018 Cheilitis 08/01/2018 Hyperlipidemia, unspecified hyperlipidemia type 2018 CINV (chemotherapy-induced nausea and vomiting) 2018 Chemotherapy-induced neutropenia 07/04/2018 Mass of right breast on mammogram 06/12/2018 Nephrolithiasis 06/11/2018 Overview: Added automatically from request for christiane ant [id number] Calculus of kidney 05/16/2018 Overview: Added automatically from request for christiane ant [id number] Attention deficit hyperactivity disorder (ADHD), unspe cified [...] Added automatically from request for christiane cain [id number] Abdominal pain 03/28/2018 Choledocholithiasis 03/28/2018 Overview: Added automatically from request for christiane cain [id number] Right upper quadrant abdominal pain 03/28/2018 Overview: Added automatically from request for christiane cain [id number] Hypotension 07/05/2017 Obesity (BMI 30-39.9) 07/05/2017 documented as of this encounter (statuses as of 04/03/2020) Immunizations Name Administration Dates Next Due Influenza [...] of this encounter Implants Implanted Type Area Pediatric Medical Assistant Device Shelf Model / Identifier Expiration Serial / Lot Date Port Port Right: ARROW 11/03/2022 [id number] / Implanted: Qty: 1 on 05/17/2018 at [facility] Chest INTER[employer]ATIONAL [id number] / [id number] [id number] 7cm Double-Pigtail Cbd Stent-03/29/2018 STENT Implanted: 03/29/2018 (Quantity not on file) Stent Advanix Biliary 7fr X 7cm [employer] #[id number] - S 0 STENT [employer] [id number] / Implanted: Qty: 1 on 03/29/2018 by Jose Blanco MD at [facility] 0 / [id number] Stent Advanix Biliary Double Pigtail 7f 5cmboston [employer]ie ntific #[id number] - S0 STENT [employer] [id number] / Implanted: Qty: 1 on 04/05/2018 by Jose Blanco MD at [facility] 0 / 0 Advanix Pancreatic Stent 5fx5cm [employer] [id number] / Implanted: Qty: 1 on 03/29/2018 by Jose Blanco MD at [facility] 0 / [id number] documented as of this encounter Procedures Procedure Name Priority Date/Time Associated Diagnosis Comme nts CONSENT/REFUSAL FOR Routine 04/03/2020 9:55 PM LUBRICATION TECHNICIAN DIAGNOSIS AND TREATMENT CONSENT/REFUSAL FOR Routine 04/03/2020 9:55 PM LUBRICATION TECHNICIAN DIAGNOSIS AND TREATMENT documented in this encounter Results Not on filedocumented in this encounter Insurance Payer Benefit Plan / Subscriber ID Effective Dates Phone Addre ss Type Group MEDICARE MEDICARE PART [id number] 2011-Randi [phone] Medicare A & B [place] 2 [id number] [place] [phone] documented as of this encounter
--- OUTSIDE RECORDS SUMMARY | 2020-05-28 15:21 | XMS REPORT | Summary of Care ---
:1965 Author Organization [facility] Address [address] [place] [address] Care Team Providers Name Role Phone Marilin, L Primary Care Provider Encounter Details Date Type Department Care Team Description 04/27/2020 Orders Only [facility] Doctor Unassigned, No [address] [facility] [place] [address] [address] [place] [address] Allergies Active Allergy Reactions Severity Noted Date Comments Valproate Sodium Other - See comments High 05/13/2018 Samir merida swelling documented as of this encounter (statuses as of 05/13/2020) Medications Medication Sig Dispensed Refills Start Date [...] as of this encounter (statuses as of 05/13/2020) Active Problems Problem Noted Date Hypokalemia, gastrointestinal losses 09/16/2018 Hypomagnesemia 09/16/2018 Encounter for chemotherapy management 08/01/2018 Cheilitis 08/01/2018 Hyperlipidemia, unspecified hyperlipidemia type 2018 CINV (chemotherapy-induced nausea and vomiting) 2018 Chemotherapy-induced neutropenia 07/04/2018 Mass of right breast on mammogram 06/12/2018 Nephrolithiasis 06/11/2018 Overview: Added automatically from request for christiane ant [id number] Calculus of kidney 05/16/2018 Overview: Added automatically from request for christiane ant [id number] Attention deficit hyperactivity disorder (ADHD), unspe cified [...] Added automatically from request for christiane cain [id number] Abdominal pain 03/28/2018 Choledocholithiasis 03/28/2018 Overview: Added automatically from request for christiane cain [id number] Right upper quadrant abdominal pain 03/28/2018 Overview: Added automatically from request for christiane cain [id number] Hypotension 07/05/2017 Obesity (BMI 30-39.9) 07/05/2017 documented as of this encounter (statuses as of 05/13/2020) Immunizations Name Administration Dates Next Due Influenza [...] with No / Unsure 04/03/2020 10:02 PM WHIZZER someone who was confirmed or suspected to [...] of this encounter Implants Implanted Type Area Remote Encoding Center Manager Device Shelf Model / Identifier Expiration Serial / Lot Date Port Port Right: ARROW 11/03/2022 [id number] / Implanted: Qty: 1 on 05/17/2018 at [facility] INTERNATIONAL [id number] / [id number] 7f 7cm Double-Pigtail Cbd Stent-03/29/2018 STENT Implanted: 03/29/2018 (Quantity not on file) Stent Advanix Biliary 7fr X 7cm [employer] #[id number] - S 0 STENT [employer] [id number] / Implanted: Qty: 1 on 03/29/2018 by Jose Blanco MD at [facility] 0 / [id number] Stent Advanix Biliary Double Pigtail 7f [employer]oston [employer] #[id number] - S0 STENT [employer] [id number] / Implanted: Qty: 1 on 04/05/2018 by Jose Blanco MD at [facility] 0 / 0 Advanix Pancreatic Stent 5fx5cm [employer] [id number] / Implanted: Qty: 1 on 03/29/2018 by Jose Blanco MD at [facility] 0 / [id number] documented as of this encounter Procedures Procedure Name Priority Date/Time Associated Diagnosis Comme nts DME/SUPPLY JUSTIFICATION Routine 04/27/2020 12:01 AM WHIZZER documented in this encounter Results Not on filedocumented in this encounter Insurance Payer Benefit Plan / Subscriber ID Effective Dates Phone Addre ss Type Group MEDICARE MEDICARE PART [id number] 2011-Randi [phone] [address] Medicare A & B nt 2 [id number] DELVIN CARUSO [phone] documented as of this encounter
--- OUTSIDE RECORDS SUMMARY | 2020-05-28 15:21 | XMS REPORT | Summary of Care ---
:1965 Author Organization [facility] - [facility] Address [address] [place] [id number] Care Team Providers Name Role Phone Marilin, L Primary Care Provider Reason for Visit Reason Comments UTI Auth/Cert Status Reason Specialty Diagnoses / Referred By Referred To Procedures Contact Contact Emergency [facility] Dept [address] [address] Fax: Encounter Details Date Type Department Care Team Description 05/15/2020 Emergency [facility] Annamaria Vaca , ANIL Acute cystitis without hematuria (Primar y Dx); Department [address] [place] [address] Dysuria [address] [facility] [id number] [place] [id number] Allergies Active Allergy Reactions Severity Noted Date Comments Oxycodone-Acetaminophen Swelling 05/15/2020 Valproate Sodium Other - See comments High 05/13/2018 Samir merida swelling documented as of this encounter (statuses as of 05/15/2020) Medications Medication Sig Dispensed Refills Start Date End Date Status ARIPiprazole (ABILIFY) Take 10 mg by 0 Active 10 mg tablet mouth daily. gabapentin (NEURONTIN) Take 500 mg by 0 Active 100 mg capsule mouth 2 (two) times daily. DULoxetine 60 mg Take 60 mg by 0 Active capsule mouth daily. dextroamphetamine-amphe Take 30 mg by 0 Active tamine (ADDERALL) 30 mg mouth daily. tablet topiramate 25 mg tablet Take 1 tablet 30 tablet 0 04/06/2018 Active by mouth 2 (two) times daily. buPROPion XL 150 mg 24 Take 1 tablet 0 Active hr tablet by mouth daily. carBAMazepine 200 mg Take 1 tablet 0 Active tablet by mouth daily. Diphenhydramine-Acetami Take 1 Package 0 Active nophen (GOODY'S PM) by mouth daily. 38-500 mg Pack FENTanyl 50 mcg/hr Apply 1 Patch 0 06/19/2018 Active patch to skin every 72 (seventy-two) hours. loperamide 2 mg Take 4 mg after 30 capsule 0 07/05/2018 Active capsuleIndications: 1st loose CINV stool, then 2 (chemotherapy-induced mg by mouth nausea and vomiting), every 2 hr Malignant neoplasm of until 12 hr head of pancreas have passed with no loose stool. If [...] tabletIndications: by mouth daily. Hypokalemia, gastrointestinal losses cephALEXin (KEFLEX) 500 Take 1 capsule 14 capsule 0 05/15/2020 05/22/2020 Active mg capsuleIndications: by mouth 2 Dysuria, Acute cystitis (two) times without hematuria daily for 7 days. fluconazole 150 mg Take 1 tablet 1 tablet 0 05/15/20202020 Active tabletIndications: by mouth once Dysuria, Acute cystitis now for 1 dose. without hematuria documented as of this encounter (statuses as of 05/15/2020) Active Problems Problem Noted Date Hypokalemia, gastrointestinal losses 09/16/2018 Hypomagnesemia 09/16/2018 Encounter for chemotherapy management 08/01/2018 Cheilitis 08/01/2018 Hyperlipidemia, unspecified hyperlipidemia type 2018 CINV (chemotherapy-induced nausea and vomiting) 2018 Chemotherapy-induced neutropenia 07/04/2018 Mass of right breast on mammogram 06/12/2018 Nephrolithiasis 06/11/2018 Overview: Added automatically from request for christiane cain [id number] Calculus of kidney 05/16/2018 Overview: Added automatically from request for christiane cain [id number] Attention deficit hyperactivity disorder (ADHD), unspe cified [...] Added automatically from request for christiane cain [id number] Abdominal pain 03/28/2018 Choledocholithiasis 03/28/2018 Overview: Added automatically from request for christiane cain [id number] Right upper quadrant abdominal pain 03/28/2018 Overview: Added automatically from request for christiane cain [id number] Hypotension 07/05/2017 Obesity (BMI 30-39.9) 07/05/2017 documented as of this encounter (statuses as of 05/15/2020) Immunizations Name Administration Dates Next Due Influenza [...] been in contact with No / Unsure 05/15/2020 11:28 AM LINDERMAN OPERATOR someone who was confirmed or suspected to have Coronavirus / COVID-19? documented as of this encounter Last Filed Vital Signs Vital Sign Reading Time Taken Comments Blood Pressure 159/102 05/15/2020 11:30 AM LINDERMAN OPERATOR Pulse 100 05/15/2020 11:30 AM LINDERMAN OPERATOR Temperature 36.9 C (98.4 F) 05/15/2020 11:30 AM LINDERMAN OPERATOR Respiratory Rate 18 05/15/2020 11:30 AM LINDERMAN OPERATOR Oxygen Saturation 99% 05/15/2020 11:30 AM LINDERMAN OPERATOR Inhaled Oxygen Concentration - - Weight 78 kg (172 lb) 05/15/2020 11:30 AM LINDERMAN OPERATOR Height - - Body Mass Index 29.52 04/03/2020 10:07 PM LINDERMAN OPERATOR documented in this encounter Discharge Instructions Annamaria Caceres FNP - 1Please return to the ER if you have any worsening abdominal pain, fever, nausea, vomiting, chills, back pain, are unable to urinate or any other symptoms you feel are abnormal. An antibiotic has been prescribed for you, please take as directed. Please follow up with your primary care doctor as soon aspossible. Thank you. AttachmentsThe following attachments cannot be sent through Care Everywhere. Urinary Tract Infections (UTIs), Understanding (Taiwanese)documented in this encounter ED Notes Micky Julien RN - 05/15/2020 11:28 AM CSTPatient c/o pain with urination x3 days. Patient reports that she has terminal colon cancer and recei krissy last dose of chemo and radiation 2 days ago. documented in this encounter Plan of Treatment Name Type Priority Associated Diagnoses Date/Ti me Urine Culture LAB STAT Dysuria 05/15/2020 11: 44 AM LINDERMAN OPERATOR Name Type Priority Associated Diagnoses Order S chedule Urine Culture LAB DIEGO Dysuria DIEGO for 1 Occ urrences starting 05/15/2020 unti l 05/15/2020 Health Maintenance Due Date Last Done Comments PNEUMOCOCCAL 0-64 YEARS COMBINED SERIES (1 of 3 - 1973 PCV13) Depression Screening 1979 DTaP,Tdap,and Td Vaccines (1 - Tdap) 1986 PAP SMEAR 1988 Zoster Recombinant Vaccine (SHINGRIX) (1 of 2) 2017 Breast Cancer Screening (MAMMOGRAM) 06/07/2019 06/07/2018 INFLUENZA VACCINE (#1) 2020 documented as of this encounter Implants Implanted Type Area Label Pinker Device Shelf Model / Identifier Expiration Serial / Lot Date Port Port Right: ARROW 11/03/2022 [id number] / Implanted: Qty: 1 on 05/17/2018 at [facility] Chest INTERNATIONAL [id number] / [id number] 7f 7cm Double-Pigtail Cbd Stent-03/29/2018 STENT Implanted: 03/29/2018 (Quantity not on file) Stent Advanix Biliary 7fr X 7cm [employer] #[id number] - S 0 STENT [employer] [id number] / Implanted: Qty: 1 on 03/29/2018 by Jose Blanco MD at [facility] 0 / [id number] Stent Advanix Biliary Double Pigtail 7f 5cmboston Scie [employer] #[id number] - S0 STENT [employer] [id number] / Implanted: Qty: 1 on 04/05/2018 by Jose Blanco MD at [facility] BLDG 0 / 0 Advanix Pancreatic Stent 5fx5cm [employer] [id number] / Implanted: Qty: 1 on 03/29/2018 by Jose Blanco MD at [facility] 0 / [id number] documented as of this encounter Procedures Procedure Name Priority Date/Time Associated Diagnosis Comme nts URINALYSIS STAT 05/15/2020 11:44 AM Dysuria Results for this LINDERMAN OPERATOR procedure are i n the results section . documented in this encounter Results Urinalysis (05/15/2020 11:44 AM LINDERMAN OPERATOR) Pathologist Sig nature APPEARANCE Hazy (A) Clear [facility] COLOR Yellow Yellow [facility] PH 6.0 4.8 - 8.0 [facility] SP GRAVITY 1.013 1.003 - 1.030 [facility] GLU U QUAL Normal Normal [facility] BLOOD Negative Negative [facility] KETONES Negative Negative [facility] PROTEIN Negative Negative [facility] UROBILIN Normal Normal [facility] BILIRUBIN Negative Negative [facility] NITRITE Negative Negative [facility] LEUK TEDDY Negative Negative [facility] RBC/HPF 1 0 - 3 HPF [facility] WBC/HPF 1 0 - 5 HPF [facility] BACTERIA Negative Negative [facility] MUCOUS Slight (A) Negative LPF [facility] SQ EPITH 3 HPF [facility] Specimen Urine - URINE, CLEAN CATCH Performing Organization Address City/State/Zipcode Phone Number [facility] CLIA: [id number] [place] [address] documented in this encounter Visit Diagnoses Diagnosis Acute cystitis without hematuria - Prima ry Acute cystitis Dysuria documented in this encounter Administered Medications Medication Order MAR Action Action Date Dose Rate Site FENTanyl PF (SUBLIMAZE Given 05/15/2020 12:23 PM 50 mcg Right Deltoid-IM (PF)) injection 50 mcg LINDERMAN OPERATOR 50 mcg, Intramuscular, ONCE, 1 dose, 05/15/20 at 1300, STAT phenazopyridine (PYRIDIUM) tablet 200 mg Given 05/15/2020 11:55 AM LINDERMAN OPERATOR 200 mg 200 mg, Oral, ONCE NOW, 1 dose, 05/15/20 at 1300, DIEGO documented in this encounter Insurance Payer Benefit Plan / Subscriber ID Effective Dates Phone Addre ss Type Group MEDICARE MEDICARE PART [id number] 2011-Randi [phone] [address] [facility] Medicare A & B nt 2 [id number] ANURAG SALCHADELVIN [phone] documented as of this encounter
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
[2020-05-28] MEDS ORDERED: NA CHLORIDE 0.9% 1,000 ML ONE (18:09)
[2020-05-28] MEDS ORDERED: HYDROMORPHONE HCL 1 MG/ML INJ ONE (18:09)
[2020-05-28 18:38] LABS: Absolute Lymphocytes (CBC) 0.9 K/uL (0.7-4.9); Basophils % 0.6 % (0-1.3); Hematocrit 28.6 % (36.0-45.0); Lymphocytes % 13.8 % (15.3-44.8); MPV 8.2 fL (7.6-11.3); RBC Red Blood Cell Count 3.42 M/uL (3.86-4.86)
[2020-05-28 18:40] LABS: Protime INR 1.02
[2020-05-28 18:44] LABS: Urine Bacteria <20 /HPF (<20); Urine RBC NONE SEEN /HPF (NONE SEEN)
[2020-05-28 18:46] LABS: Urine Blood NEGATIVE (NEG); Urine Glucose NEGATIVE (NEG); Urine Protein 1+ (NEG); Urine pH 5.5 (5.0-7.0)
[2020-05-28 18:51] LABS: ALT/SGPT 37 U/L (12-78); AST/SGOT 16 U/L (15-37); Albumin 2.8 g/dL (3.4-5.0); Alkaline Phosphatase 101 U/L (45-117); BUN Blood Urea Nitrogen 18 mg/dL (7-18); Bicarbonate 27 mmol/L (21-32); Bilirubin Direct < 0.1 mg/dL (0-0.2); Bilirubin Total 0.2 mg/dL (0.2-1.0); Glucose Level 91 mg/dL (74-106); NT PRO-BNP 585 pg/mL (<125); Potassium 4.8 mmol/L (3.5-5.1); Protein, Total 6.4 g/dL (6.4-8.2); Sodium Level 139 mmol/L (136-145); Troponin (Emerg Dept Use Only) 0.02 ng/mL (0.0-0.045)
[2020-05-28 19:08] LABS: Blood Morphology Comment NOT SEEN (NOT SEEN); Platelet Estimate INCR; White Blood Cell Scan OK (OK)
--- NOTE | 2020-05-28 19:46 | RAD REPORT ---
EXAM DESCRIPTION: CT - Head Brain Wo Cont - 05/28/2020 7:27 pm CLINICAL HISTORY: DIZZINESS COMPARISON: None TECHNIQUE: Axial 5 mm thick images of the head were obtained without IV contrast. All CT scans are performed using dose optimization technique as appropriate and may include automated exposure control or mA/KV adjustment according to patient size. FINDINGS: No intracranial hemorrhage, mass, edema or shift of mid-line structures. No acute infarcti on changes seen. No abnormal extra-axial fluid collections. Ventricles are normal. Mastoid air cells and visualized portions of the paranasal sinuses are clear. No acute bony findings. IMPRESSION: Negative non-contrast CT head examination.
--- NOTE | 2020-05-28 20:12 | ER ---
Nurse's Notes [facility] Name: Anamaria Williamson Age: 55 yrs Sex: Female : 1965 Arrival Date: 05/28/2020 Time: 15:58 Bed 16 Private MD: Diagnosis: Dizziness;Acute upper respiratory infection, unspecified;Neoplasm related pain (acute) (chronic) Presentation: 05/28 16:04 Chief complaint: Patient's son or daughter states: Daughter: For a week now, I noticed ca1 her with bad confusion, dizzy and very weak. She has colon cancer, pancreatic cancer with mets to the liver. Undergoing treatment. Last time she had this in November she was septic. She also had bleeding ulcers and she had blood transfusions in the past and she looked pale to me. Reports abdominal pain. Coronavirus screen: Client denies travel out of the [place] in the last 14 days. At this time, the client does not indicate any symptoms associated with coronavirus-19. Ebola Screen: Patient negative for fever greater than or equal to 101.5 degrees Fahrenheit, and additional compatible Ebola Virus Disease symptoms Patient denies exposure to infectious person. Patient denies travel to an Ebola-affected area in the 21 days before illness onset. No symptoms or risks identified at this time. Initial Sepsis Screen: Does the patient meet any 2 criteria? No. Patient's initial sepsis screen is negative. Does the patient have a suspected source of infection? No. Patient's initial sepsis screen is negative. Risk Assessment: Do you want to hurt yourself or someone else? Patient reports no desire to harm self or others. Onset of symptoms was May 28, 2020. 16:04 Method Of Arrival: Ambulatory ca1 16:04 Acuity: SHAJI 3 ca1 ELECTRICIAN OFFICE: 16:10 LMP N/A - Hysterectomy ca1 Historical: - Allergies: 16:10 No Known Allergies; ca1 - PMHx: 16:10 epilepsy; Hypertension; Kidney stones; ca1 - PSHx: 16:10 Lithotripsy; Tonsillectomy; Hysterectomy; ca1 - Immunization history:: Pneumococcal vaccine is not up to date, Flu vaccine is not up to date. - Social history:: Smoking status: Patient/guardian denies using tobacco, Stopped _ months ago 6. Screenin:15 Abuse screen: Denies threats or abuse. Denies injuries from another. Nutritional jl7 screening: No deficits noted. Tuberculosis screening: No symptoms or risk factors identified. Fall Risk IV access (20 points). Total Shabazz Fall Scale indicates No Risk (0-24 pts). Assessment: 18:00 General: Appears in no apparent distress. uncomfortable, Behavior is calm, cooperative, jl7 appropriate for age. Pain: Denies pain. Neuro: Level of Consciousness is awake, alert, obeys commands, Oriented to person, place, time, situation. Cardiovascular: Patient's skin is warm and dry. Rhythm is regular. Respiratory: Airway is patent Respiratory effort is even, unlabored, Respiratory pattern is regular, symmetrical. GI: Colostomy site Ostomy appliance is intact. prolapsed ostomy noted. Derm: Skin is pink, warm \T\ dry. 18:57 Reassessment: Patient appears in no apparent distress at this time. Patient and/or jl7 family updated on plan of care and expected duration. Pain level reassessed. Patient is alert, oriented x 3, equal unlabored respirations, skin warm/dry/pink. Patient states feeling better. Patient states symptoms have improved. 19:00 Reassessment: Patient appears in no apparent distress at this time. Patient and/or jb4 family updated on plan of care and expected duration. Pain level reassessed. Patient is alert, oriented x 3, equal unlabored respirations, skin warm/dry/pink. 20:30 Reassessment: Patient appears in no apparent distress at this time. Patient and/or jb4 family updated on plan of care and expected duration. Pain level reassessed. Patient is alert, oriented x 3, equal unlabored respirations, skin warm/dry/pink. Patient states feeling better. Vital Signs: 16:04 BP 116 / 57; Pulse 88; Resp 18 S; Temp 98.2(TE); Pulse Ox 99% on R/A; Weight 77.11 kg ca1 (R); Height 5 ft. 5 in. (165.10 cm) (R); Pain 9/10; 18:15 BP 109 / 65; Pulse 82; Resp 19; Pulse Ox 99% ; jl7 18:57 BP 99 / 60; Pulse 91; Resp 16; Pulse Ox 99% ; jl7 20:00 BP 111 / 76; Pulse 81; Resp 16; Pulse Ox 96% on R/A; jb4 16:04 Body Mass Index 28.29 (77.11 kg, 165.10 cm) ca1 ED Course: 15:58 Patient arrived in ED. am4 16:09 Triage completed. ca1 16:10 Arm band placed on right wrist. ca1 17:20 Michael Goodson PA is PHCP. jr8 17:20 Fuentes Brumfield MD is Attending Physician. jr8 17:38 Benjamin Ardon RN is Primary Nurse. jl7 18:04 EKG done, by ED staff, reviewed by Michael HARGROVE. jd3 18:15 Patient has correct armband on for positive identification. Bed in low position. Call jl7 light in reach. Side rails up X 1. school bus monitor on. Pulse ox on. NIBP on. Warm blanket given. 18:15 Initial lab(s) drawn, by me, sent to lab. Inserted saline lock: 20 gauge in left jl7 forearm, using aseptic technique. Blood collected. 18:34 XRAY Chest (1 view) In Process Unspecified. EDMS 19:26 CT Head Brain wo Cont In Process Unspecified. EDMS 20:40 No provider procedures requiring assistance completed. IV discontinued, intact, jb4 bleeding controlled, No redness/swelling at site. Pressure dressing applied. Administered Medications: 18:20 Drug: Dilaudid 1 mg Route: IVP; Site: left forearm; jl7 18:50 Follow up: Response: No adverse reaction; Pain is decreased jl7 18:20 Drug: NS 0.9% 1000 ml Route: IV; Rate: 1000 ml; Site: left forearm; jl7 20:32 Drug: Rocephin 1 grams Route: IV; Rate: calculated rate; Site: left forearm; jb4 20:38 Follow up: Response: No adverse reaction; IV Status: Completed infusion; IV Intake: [id number] Intake: 20:38 IV: 10ml; Total: 10ml. jb4 Outcome: 20:12 Discharge ordered by . jr8 20:40 Discharged to home ambulatory. jb4 20:40 Condition: stable 20:40 Discharge instructions given to patient, Instructed on discharge instructions, follow up and referral plans. medication usage, Demonstrated understanding of instructions, follow-up care, medications, Prescriptions given X 2. 20:40 Patient left the ED. jb4 Signatures: Dispatcher [employer] EDMS Thierryk, Michael, PA PA jr8 Marcos Iglesias, RN RN jb4 Benjamin Ardon RN RN jl7 Colten Blevins RN RN jd3 Alla Alford, RN RN ca1 Cheli Singh am
--- NOTE | 2020-05-28 20:12 | EDPHYS ---
Physician Documentation [facility] Name: Anamaria Williamson Age: 55 yrs Sex: Female : 1965 Arrival Date: 05/28/2020 Time: 15:58 Bed 16 Private MD: ED Physician Fuentes Brumfield HPI: 05/28 18:22 This 55 yrs old Female presents to ER via Ambulatory with complaints of jr8 Dizziness, Weakness. 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 Stated that she continues to do chemotherapy because it has been somewhat responsive. Stated that she normally has no problems with dizziness or altered mentation but lately she has been more forgetful and has had dizziness and weakness. Was on Abx recently for UTI. Stated that she has also been septic and anemic in the past and is concerned for this as well . Severity of symptoms: At their worst the symptoms were moderate in the emergency department the symptoms are unchanged. The patient has not experienced similar symptoms in the past. It is unknown whether or not the patient has recently seen a physician. 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 - Social history:: Smoking status: Patient/guardian denies using tobacco, Stopped _ months ago 6. ROS: 18:22 Eyes: Negative for injury, pain, redness, and discharge, ENT: Negative for injury, jr8 pain, and discharge, Neck: Negative for injury, pain, and swelling, Cardiovascular: Negative for chest pain, palpitations, and edema, Respiratory: Negative for shortness of breath, cough, wheezing, and pleuritic chest pain, Abdomen/GI: Negative for abdominal pain, nausea, vomiting, diarrhea, and constipation, Back: Negative for injury and pain, MS/Extremity: Negative for injury and deformity, Skin: Negative for injury, rash, and discoloration. 18:22 Constitutional: Positive for fatigue, malaise. 18:22 Neuro: Positive for altered mental status, dizziness. Exam: 18:22 Eyes: Pupils equal round and reactive to light, extra-ocular motions intact. Lids and jr8 lashes normal. Conjunctiva and sclera are non-icteric and not injected. Cornea within normal limits. Periorbital areas with no swelling, redness, or edema. ENT: Nares patent. No nasal discharge, no septal abnormalities noted. Tympanic membranes are normal and external auditory canals are clear. Oropharynx with no redness, swelling, or masses, exudates, or evidence of obstruction, uvula midline. Mucous membranes moist. Neck: Trachea midline, no thyromegaly or masses palpated, and no cervical lymphadenopathy. Supple, full range of motion without nuchal rigidity, or vertebral point tenderness. No Meningismus. Cardiovascular: Regular rate and rhythm with a normal S1 and S2. No gallops, murmurs, or rubs. Normal PMI, no JVD. No pulse deficits. Respiratory: Lungs have equal breath sounds bilaterally, clear to auscultation and percussion. No rales, rhonchi or wheezes noted. No increased work of breathing, no retractions or nasal flaring. Back: No spinal tenderness. No costovertebral tenderness. Full range of motion. Skin: Warm, dry with normal turgor. Normal color with no rashes, no lesions, and no evidence of cellulitis. MS/ Extremity: Pulses equal, no cyanosis. Neurovascular intact. Full, normal range of motion. Neuro: Awake and alert, GCS 15, oriented to person, place, time, and situation. Cranial nerves II-XII grossly intact. Motor strength 5/5 in all extremities. Sensory grossly intact. Cerebellar exam normal. Normal gait. 18:22 Abdomen/GI: Inspection: colostomy with prolapse present to right side of abdomen, Bowel sounds: active, Palpation: soft, in all quadrants, mild abdominal tenderness, in the abdomen diffusely, mass, is not appreciated, rebound tenderness, is not appreciated, voluntary guarding, is not appreciated, involuntary guarding, is not appreciated, no appreciated organomegaly, Indicators: McBurney's point is not tender, Meneses's sign is negative, Rovsing's sign is negative, Liver: tenderness, is not appreciated. Vital Signs: 16:04 BP 116 / 57; Pulse 88; Resp 18 S; Temp 98.2(TE); Pulse Ox 99% on R/A; Weight 77.11 kg ca1 (R); Height 5 ft. 5 in. (165.10 cm) (R); Pain 9/10; 18:15 BP 109 / 65; Pulse 82; Resp 19; Pulse Ox 99% ; jl7 18:57 BP 99 / 60; Pulse 91; Resp 16; Pulse Ox 99% ; jl7 20:00 BP 111 / 76; Pulse 81; Resp 16; Pulse Ox 96% on R/A; jb4 16:04 Body Mass Index 28.29 (77.11 kg, 165.10 cm) ca1 MDM: 17:21 Patient medically screened. jr8 19:48 Data reviewed: vital signs, nurses notes, lab test result(s), EKG, radiologic studies, jr CT scan, plain films. Data interpreted: Pulse oximetry: on room air is 99 %. Interpretation: normal. Counseling: I had a detailed discussion with the patient and/or guardian regarding: the historical points, exam findings, and any diagnostic results supporting the discharge/admit diagnosis, lab results, radiology results, the need for outpatient follow up, a family practitioner, to return to the emergency department if symptoms worsen or persist or if there are any questions or concerns that arise at home. 05/28 17:46 Order name: Basic Metabolic Panel; Complete Time: 18:51 05/28 17:46 Order name: CBC with Diff; Complete Time: 19:16 05/28 17:46 Order name: LFT's; Complete Time: 18:51 05/28 17:46 Order name: Magnesium; Complete Time: 18:51 05/28 17:46 Order name: NT PRO-BNP; Complete Time: 18:51 05/28 17:46 Order name: PT-INR; Complete Time: 18:41 05/28 17:46 Order name: Troponin (emerg Dept Use Only); Complete Time: 18:51 05/28 17:46 Order name: XRAY Chest (1 view) 05/28 17:46 Order name: Procalcitonin; Complete Time: 19:16 05/28 17:47 Order name: Urine Microscopic Only; Complete Time: 18:46 05/28 18:27 Order name: Urine Dipstick--Ancillary (enter results); Complete Time: 18:51 eb 05/28 18:52 Order name: CT Head Brain wo Cont; Complete Time: 20:10 [facility] 05/28 19:08 Order name: CBC Smear Scan; Complete Time: 19:16 EDMS 05/28 17:46 Order name: EKG; Complete Time: 17:47 [facility] 05/28 17:46 Order name: Cardiac monitoring; Complete Time: 18:04 [facility] 05/28 17:46 Order name: EKG - Nurse/Tech; Complete Time: 18:04 [facility] 05/28 17:46 Order name: IV Saline Lock; Complete Time: 18:28 [facility] 05/28 17:46 Order name: Labs collected and sent; Complete Time: 18:28 [facility] 05/28 17:46 Order name: O2 Per Protocol; Complete Time: 18:04 [facility] 05/28 17:46 Order name: O2 Sat Monitoring; Complete Time: 18:04 [facility] 05/28 17:47 Order name: Urine Dipstick-Ancillary (obtain specimen); Complete Time: 18:27 [facility] Administered Medications: 18:20 Drug: Dilaudid 1 mg Route: IVP; Site: left forearm; jl7 18:50 Follow up: Response: No adverse reaction; Pain is decreased jl7 18:20 Drug: NS 0.9% 1000 ml Route: IV; Rate: 1000 ml; Site: left forearm; jl7 20:32 Drug: Rocephin 1 grams Route: IV; Rate: calculated rate; Site: left forearm; jb4 20:38 Follow up: Response: No adverse reaction; IV Status: Completed infusion; IV Intake: [id number] Disposition: 05/28/20 20:12 Discharged to Home. Impression: Dizziness, Acute upper respiratory infection, unspecified, Neoplasm related pain (acute) (chronic). - Condition is Stable. - Discharge Instructions: Upper Respiratory Infection, Adult. - Prescriptions for Augmentin 875- 125 mg Oral Tablet - take 1 tablet by ORAL route every 12 hours for 10 days; 20 tablet. Meclizine 25 mg Oral Tablet - take 1 tablet by ORAL route every 8 hours As needed; 30 tablet. - Medication Reconciliation Form, Thank You Letter, Antibiotic Education, Prescription Opioid Use form. - Follow up: Private Physician; When: 2 - 3 days; Reason: Recheck today's complaints, Continuance of care, Re-evaluation by your physician. - Problem is new. - Symptoms have improved. Addendum: 05/31/2020 06:26 Co-signature as Attending Physician, Fuentes Brumfield MD I agree with the assessment and t w4 plan of care. Signatures: Dispatcher [employer] EDMS Michael Goodson PA PA jr8 Marcos Iglesias RN RN jb4 Benjamin Ardon RN RN jl7 Fuentes Brumfield MD MD tw4 Alla Alford RN RN ca1 Corrections: (The following items were deleted from the chart) 05/28 20:40 20:12 05/28/2020 20:12 Discharged to Home. Impression: Dizziness; Acute upper jb4 respiratory infection, unspecified; Neoplasm related pain (acute) (chronic). Condition is Stable. Forms are Medication Reconciliation Form, Thank You Letter, Antibiotic Education, Prescription Opioid Use. Follow up: Private Physician; When: 2 - 3 days; Reason: Recheck today's complaints, Continuance of care, Re-evaluation by your physician. Problem is new. Symptoms have improved. jr8
[2020-05-28] MEDS ORDERED: CEFTRIAXONE/SWI 1gm 1 GM/10 ML SYR ONE (20:39)
--- NOTE | 2020-05-28 20:51 | RAD REPORT ---
EXAM DESCRIPTION: RAD - Chest Single View - 05/28/2020 6:34 pm CLINICAL HISTORY: COUGH COMPARISON: Portable December 2015 TECHNIQUE: AP portable chest image was obtained 05/28/2020 6:34 pm . FINDINGS: Lungs are clear. Port-A-Cath has been placed since the prior examination. Heart size is no rmal. Pulmonary vasculature within normal limits. No measurable pleural effusion and no pneumothorax. No acute bony abnormality seen. No acute aortic findings suspected. IMPRESSION: No acute cardiopulmonary process. No suspicious change from comparison.
[2020-05-28 21:18] VITALS: TEMP 98.2
[2020-05-28 21:22] VITALS: BP 111/76; O2SAT 96
== END 2020-05-28 20:40 | disposition home or self-care (01) ==
LOC: ER 15:11
DX: J06.9 Acute upper respiratory infection, unspecified (principal); G89.3 Neoplasm related pain (acute) (chronic); C25.9 Malignant neoplasm of pancreas, unspecified; C18.9 Malignant neoplasm of colon, unspecified; C78.7 Secondary malignant neoplasm of liver and intrahepatic bile duct; C78.00 Secondary malignant neoplasm of unspecified lung; I10 Essential (primary) hypertension; Z87.891 Personal history of nicotine dependence
CPT/HCPCS: 93005; 85025; 80048; 36415; 83735; 85610; 80076; 84484; 84145; 83880; 70450; 71045; 96375; 96374; 99285; J1170; J0696; J7030; 81003; 81015

== ENCOUNTER 2020-06-21 12:59 | Inpatient (IN) | payer OTHER ==
--- NOTE | 2020-06-21 13:38 | RAD REPORT ---
EXAM DESCRIPTION: CT - Head Brain Wo Cont - 06/21/2020 1:32 pm CLINICAL HISTORY: MENTAL STATUS CHANGE, transient alteration of awareness, unresponsive, hypoglycemi a COMPARISON: Head Brain Wo Cont dated 05/28/2020 TECHNIQUE: Axial 5 mm thick images of the head were obtained without IV contrast. All CT scans are performed using dose optimization technique as appropriate and may include automated exposure control or mA/KV adjustment according to patient size. FINDINGS: No intracranial hemorrhage, mass, edema or shift of mid-line structures. No acute infarcti on changes seen. No abnormal extra-axial fluid collections. Ventricles are normal. Physiologic calcif ications are present. There is asymmetry is created by head tilt within the scanner. Mastoid air cells and visualized portions of the paranasal sinuses are clear. No acute bony findings. IMPRESSION: Negative non-contrast CT head examination. No significant change from comparison.
[2020-06-21 13:58] LABS: Absolute Lymphocytes (CBC) 0.1 K/uL (0.7-4.9); Basophils % 0.4 % (0-1.3); Hematocrit 27.9 % (36.0-45.0); Lymphocytes % 1.6 % (15.3-44.8); MPV 10.6 fL (7.6-11.3); RBC Red Blood Cell Count 3.37 M/uL (3.86-4.86)
--- NOTE | 2020-06-21 14:03 | RAD REPORT ---
EXAM DESCRIPTION: RAD - Chest Single View - 06/21/2020 1:40 pm CLINICAL HISTORY: AMS, hypoglycemiaunresponsive COMPARISON: Portable May 28 TECHNIQUE: AP portable chest image was obtained 06/21/2020 1:40 pm . FINDINGS: Lung volumes are low. No peripheral mass or consolidation. No failure or volume overload. Right-sided Port-A-Cath remains in place. Heart and vasculature are normal. No measurable pleural eff usion and no pneumothorax. No acute bony abnormality seen. No acute aortic findings suspected. IMPRESSION: No acute cardiopulmonary process. No significant change from comparison study.
[2020-06-21 14:05] LABS: Protime INR 1.1
[2020-06-21 14:24] LABS: Anisocytosis 2+; Blood Morphology Comment NOTED (NOT SEEN); Platelet Estimate ADEQ; White Blood Cell Scan OK (OK)
[2020-06-21] MEDS ORDERED: NA CHLORIDE 0.9% 1,000 ML ONE ×2 (14:27→17:23)
[2020-06-21] MEDS ORDERED: D5LR 1,000 ML IV ONE (14:27)
[2020-06-21 14:47] LABS: ALT/SGPT 133 U/L (12-78); AST/SGOT 263 U/L (15-37); Albumin 2.4 g/dL (3.4-5.0); Alkaline Phosphatase 133 U/L (45-117); Amylase 14 U/L (25-115); BUN Blood Urea Nitrogen 79 mg/dL (7-18); Bicarbonate 16 mmol/L (21-32); Bilirubin Direct 0.2 mg/dL (0-0.2); Bilirubin Total 0.5 mg/dL (0.2-1.0); CKMB Creatine Kinase MB 146.1 ng/mL (0.3-3.6); Creatine Phosphokinase 6021 U/L (26-192); Glucose Level 202 mg/dL (74-106); Potassium 5.3 mmol/L (3.5-5.1); Protein, Total 5.9 g/dL (6.4-8.2); Sodium Level 135 mmol/L (136-145); Troponin (Emerg Dept Use Only) 0.06 ng/mL (0.0-0.045)
[2020-06-21 14:55] LABS: Lipase < 10 U/L (73-393)
[2020-06-21] MEDS ORDERED: CEFTRIAXONE/SWI 1gm 1 GM/10 ML SYR ONE (15:27)
--- NOTE | 2020-06-21 15:54 | RAD REPORT ---
EXAM DESCRIPTION: CT - Abdomen Pelvis Wo Contrast - 06/21/2020 3:33 pm CLINICAL HISTORY: Abdominal pain. ABD PAIN COMPARISON: Stone Protocol dated 12/25/2015 TECHNIQUE: CT imaging of the abdomen and pelvis was performed without contrast. Solid organ, bowel a nd vascular assessment is limited due to lack of IV and oral contrast. All CT scans are performed using dose optimization technique as appropriate and may include automated exposure control or mA/KV adjustment according to patient size. FINDINGS: Small areas of nodularity are present in both lung bases. Limited noncontrast assessment of the liver demonstrates no focal mass. No significant biliary dilata tion. Common bile duct stent is in place.Subtle linear air densities are present in the left lobe of the liver. The spleen, pancreas and right adrenal gland are within normal limits. 17 mm left adrenal mass is present. There is a large parastomal hernia in the right lower quadrant which appears to contain small and lar ge bowel. There is suspicion for pneumatosis is seen within bowel loops within the hernia sac inferol aterally. A large amount of stool is impacted in the rectum with rectal wall thickening to 12 mm. No free intraperitoneal air or fluid collection. Punctate stone is seen in the inferior right renal calyx. No measurable hydronephrosis seen. Cyst is present in inferoanterior left kidney. Moderate lumbosacral degenerative changes. IMPRESSION: Bowel ischemia is suspected with an bowel loops within the large right sided parastomal hernia. Small amount of portal venous air in the left lobe of the liver is suspected. Significant rectal fecal impaction. Small right renal stone without significant hydronephrosis. Small pulmonary nodules in both lung bases noted which may be related to infection or metastatic dise ase. A limited non-contrast examination was performed as detailed.
[2020-06-21 16:31] LABS: Barbiturates NEGATIVE (NEGATIVE); Benzodiazepines NEGATIVE (NEGATIVE); Cocaine NEGATIVE (NEGATIVE); METHAMPHETAM POSITIVE (NEGATIVE); Methadone NEGATIVE (NEGATIVE); Opiates POSITIVE (NEGATIVE); Phencyclidine NEGATIVE (NEGATIVE); THC Cannibis NEGATIVE (NEGATIVE)
[2020-06-21 16:33] LABS: Urine Blood 3+ (NEG); Urine Glucose NEGATIVE (NEG); Urine Protein 3+ (NEG); Urine Specific Gravity >1.030 (1.005-1.030)
[2020-06-21 16:44] LABS: Urine Amorphous Sediment 2+ /HPF (NONE SEEN); Urine Bacteria 20-50 /HPF (<20); Urine Mucus 2+ /HPF (NONE SEEN)
--- NOTE | 2020-06-21 17:02 | ER ---
Nurse's Notes [facility] Name: Anamaria Williamson Age: 55 yrs Sex: Female : 1965 Arrival Date: 06/21/2020 Time: 13:05 Bed 4 Private MD: Diagnosis: Dehydration;Rhabdomyolysis;Acute kidney failure;Bowel ischemia in large right sided parastomal hernia;Delirium due to known physiological condition;Hypoglycemia, unspecified Presentation: 06/21 13:05 Chief complaint: EMS states: Daughter reported to EMS that patient had been becoming ss increasingly lethargic over the past few days with decreased appetite. BGL on arrival to home was 38. Two rounds of oral glucose given. Daughter told EMS that patient may have been abusing her pain medication because the count was low. Narcan 0.5 given en route to ED. EMS reports that patient woke quickly after administration. Pt has a hx of multiorgan CA. Coronavirus screen: Client denies travel out of the [place] in the last 14 days. Ebola Screen: Patient denies exposure to infectious person. Patient denies travel to an Ebola-affected area in the 21 days before illness onset. Onset of symptoms is unknown. 13:05 Method Of Arrival: EMS: [facility] ss 13:05 Acuity: SHAJI 1 ss 13:05 Initial Sepsis Screen: Does the patient meet any 2 criteria? No. Patient's initial iw sepsis screen is negative. Does the patient have a suspected source of infection? No. Patient's initial sepsis screen is negative. Risk Assessment: Do you want to hurt yourself or someone else? Patient reports no desire to harm self or others. 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 - Social history:: Smoking status: unknown. Screenin:10 Abuse screen: Denies threats or abuse. Denies injuries from another. Nutritional iw screening: No deficits noted. Tuberculosis screening: No symptoms or risk factors identified. Fall Risk IV access (20 points). Assessment: 14:08 Reassessment: pt in NAD, pt c/o pain to her abdomen, advised that she cannot have pain iw medication at this time, not hemodynamically stable, BP remains low, pt is A\T\OX1, at times is agitated. 14:20 Reassessment:. iw 16:06 Reassessment: pt screaming that she wants to leave, pt believes she can hear her iw daughter talking next door, IV fluids infusing to RAC, pt oriented X 3 but at times is confused. 17:01 Reassessment: Patient appears in no apparent distress at this time. pt resting quietly, iw eyes closed, awakens easily to verbal stimuli, still appears confused. 20:07 General: Appears uncomfortable, Behavior is quiet. Pain: Unable to use pain scale. ea FLACC scale score is 5 out of 10. Neuro: Level of Consciousness is awake, alert, Oriented to person. Cardiovascular: Patient's skin is warm and dry. Respiratory: Airway is patent Respiratory effort is even, unlabored, Respiratory pattern is regular, symmetrical. Derm: Skin is dry, Skin is pale, Skin temperature is warm. 22:08 Reassessment: Report given to receiving nurse on second floor. ea 22:17 Reassessment: Pt resting with eyes closed, respirations even and unlabored, chest ea expansions even and unlabored, chest expansions even and symmetrical. Pt left ED via stretcher tolerating well. Vital Signs: 13:05 BP 98 / 36; Pulse 96; Resp 22; Temp 97.1(TE); Pulse Ox 99% on R/A; ss 13:18 BP 98 / 36; Pulse 93; Resp 16 S; Pulse Ox 99% on R/A; Weight 83.91 kg; iw 14:19 BP 99 / 41; Pulse 101; Resp 16 S; Pulse Ox 94% on R/A; iw 15:00 BP 91 / 74; Pulse 102; Resp 17; Pulse Ox 95% ; sv 16:43 BP 101 / 55; Pulse 103; Resp 16 S; Pulse Ox 96% on 2 lpm NC; iw 17:28 BP 91 / 55; Pulse 105; Resp 16; Pulse Ox 93% on R/A; iw 22:09 BP 103 / 70; Pulse 88; Resp 18; Temp 97.2; Pulse Ox 99% on 2 lpm NC; ea ED Course: 13:05 Patient arrived in ED. ss 13:08 Rebeca Rollins, JOCE is Primary Nurse. iw 13:09 Vega Dillon NP is PHCP. pm1 13:09 Fuentes Brumfield MD is Attending Physician. pm1 13:24 Triage completed. ss 13:32 CT Head Brain wo Cont In Process Unspecified. EDMS 13:39 Chest Single View XRAY In Process Unspecified. EDMS 14:09 Maintain EMS IV. Dressing intact. Good blood return noted. Site clean \T\ dry. Gauge \T\ iw site: 20 RAC. 14:19 EKG done, by ED staff, reviewed by Fuentes Brumfield MD. mh5 14:19 Patient has correct armband on for positive identification. Placed in gown. Bed in low mh5 position. Call light in reach. Side rails up X2. Warm blanket given. commercial loan analyst on. Pulse ox on. NIBP on. 15:33 Abdomen In Process Unspecified. EDMS 16:07 Urine collected: straight cath specimen, tea colored. mh5 16:08 Urine --Ancillary (enter results) Sent. mh5 16:08 Urine Dipstick--Ancillary (enter results) Sent. mh5 16:09 Urine Microscopic Only Sent. mh5 16:09 UDS Sent. mh5 16:18 UDS. 5 17:01 Wilbert Fry DO is Hospitalizing Provider. pm1 20:07 No provider procedures requiring assistance completed. Patient admitted, IV remains in ea place. 20:08 Arm band placed on right wrist. Patient placed in an exam room, on a stretcher, on ea pulse oximetry. Administered Medications: 13:23 CANCELLED (Patient hypoglycemic, will give D5): NS 0.9% (30 ml/kg) 30 ml/kg IV at bolus pm1 once; Sepsis Protocol 14:18 Drug: NS 0.9% 1000 ml Route: IV; Rate: 1000 ml; Site: right antecubital; iw 14:19 Drug: D5-LR 1000 ml Route: IV; Rate: 100 ml/hr; Site: right antecubital; iw 15:45 Drug: Rocephin 1 grams Route: IV; Rate: calculated rate; Site: right antecubital; iw 17:28 Drug: NS 0.9% 1000 ml Route: IV; Rate: 1000 ml; Site: right antecubital; iw Point of Care Testing: Blood Glucose: 13:18 Blood Glucose: 195 mg/dL; iw Ranges: Outcome: 17:01 Decision to Hospitalize by Provider. pm1 20:08 Admitted to ER Hold. Please see [facility] for further documentation. ea 20:08 Condition: stable 20:08 Instructed on family instructed on need for admit 22:17 Patient left the ED. ea Signatures: Dispatcher [employer] EDPauline Christianson RN RN sv Williams, Irene, RN RN iw Smirch, Shelby, RN RN Vega Dillon NP [employer] pm1 Paige Singh [facility] Shirley Lockhart RN RN ea Corrections: (The following items were deleted from the chart) 14:21 14:08 Reassessment: pt in NAD, pt c/o pain to her abdomen, advised that she cannot have iw pain medication at this time, not hemodynamically stable, BP remains low, pt is A\T\OX3, at times is agitated iw 15:34 13:18 BP 98 / 36; Pulse 93bpm; Resp 16bpm; Spontaneous; Pulse Ox 99% RA; iw iw
--- NOTE | 2020-06-21 17:02 | EDPHYS ---
Physician Documentation [facility] Name: Anamaria Williamson Age: 55 yrs Sex: Female : 1965 Arrival Date: 06/21/2020 Time: 13:05 Bed 4 Private MD: ED Physician Fuentes Brumfield HPI: 06/21 13:27 This 55 yrs old Female presents to ER via EMS with complaints of pm1 Unresponsive, Low Blood Sugar. 13:27 The patient's problem is reported as altered mental status, decreased responsiveness. pm1 Onset: The symptoms/episode began/occurred 2 day(s) ago. Duration: the symptoms became worse today. Context: the episode(s) was witnessed, Daughter, occurred at home, Possible contributing factors include: Patient is known to have used drugs: prescription pain medication abuse. Unknown. Severity of symptoms: in the emergency department the symptoms have improved blood sugar improved with treatment by EMS. Patient's baseline: Neuro: alert and fully oriented, Motor: no deficits, Ambulation: walks without assistance. The patient has experienced similar episodes in the past, multiple times. On EMS arrival patient hypotensive and hypoglycemic. Blood sugar 38 mg/dL patient improved mental status with IV D50 x 2. 196 mg/dL on arrival to ER. Patient also given Narcan due to history of prescription drug abuse history. 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 - Social history:: Smoking status: unknown. ROS: 14:36 Unable to obtain ROS due to altered mental status, information obtained from EMS report.pm1 14:36 Constitutional: Negative for fever, chills, and weight loss, Cardiovascular: Negative pm1 for chest pain, palpitations, and edema, Respiratory: Negative for shortness of breath, cough, wheezing, and pleuritic chest pain, Abdomen/GI: Negative for abdominal pain, nausea, vomiting, diarrhea, and constipation, Back: Negative for injury and pain, MS/Extremity: Negative for injury and deformity, Skin: Negative for injury, rash, and discoloration. 14:36 Neuro: Positive for altered mental status. 14:36 Psych: Positive for drug dependence, prescription pain medications. Exam: 13:46 Radiologist reports: Negative CT head for acute findings pm1 14:36 Chest/axilla: Normal chest wall appearance and motion. Nontender with no deformity. pm1 No lesions are appreciated. 14:36 Constitutional: The patient appears obviously ill, altered and confused. Answering questions inappropriately 14:36 Cardiovascular: Rate: normal, Rhythm: regular, Pulses: no pulse deficits are appreciated. 14:36 Respiratory: Exam negative for acute changes, respiratory distress, shortness of breath. 14:36 Abdomen/GI: Inspection: prolapsed stoma on right side, Palpation: abdomen is soft and non-tender, in all quadrants. 14:36 Skin: Appearance: normal except for affected area, Color: bluish bilateral fingers and toes. 14:36 Neuro: Orientation: Not oriented to person, place, time, situation, Motor: moves all fours. Vital Signs: 13:05 BP 98 / 36; Pulse 96; Resp 22; Temp 97.1(TE); Pulse Ox 99% on R/A; ss 13:18 BP 98 / 36; Pulse 93; Resp 16 S; Pulse Ox 99% on R/A; Weight 83.91 kg; iw 14:19 BP 99 / 41; Pulse 101; Resp 16 S; Pulse Ox 94% on R/A; iw 15:00 BP 91 / 74; Pulse 102; Resp 17; Pulse Ox 95% ; sv 16:43 BP 101 / 55; Pulse 103; Resp 16 S; Pulse Ox 96% on 2 lpm NC; iw 17:28 BP 91 / 55; Pulse 105; Resp 16; Pulse Ox 93% on R/A; iw 22:09 BP 103 / 70; Pulse 88; Resp 18; Temp 97.2; Pulse Ox 99% on 2 lpm NC; ea MDM: 13:09 Patient medically screened. pm1 15:17 ED course: Daughter Jeremy Harris reports that patient was at her normal baseline on pm1 06/16. After getting a refill on her morphine on that day she started acting a little off the following day. On 06/18 she was altered. Daughter attributes the mental status change to drug abuse. She has taken more morphine than she is supposed to. Last month at [email or web address] ER she was altered because she was applying fentanyl patches without taking any old patches off. On the 06/18 the daughter decided to take her pain medications away due to the AMS. Since 06/18, the patient just laid in bed and did not eat or drink.. 15:17 ED course: Patient taking chemo therapy for [address] 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 No change in prolapsed stoma for the past 1 year. 16:03 Data reviewed: vital signs. Data interpreted: Pulse oximetry: on room air is 95 %. pm1 Interpretation: normal. 17:13 Physician consultation: Oncology MD Facundo Coker Discussed clinical presentation and pm1 w/u findings with patient's oncologist. She recommended that the patient be admitted to the hospital here, receive supportive care (IV fluids and antibiotics) for the next 48 hours and if she has improvement then she could be transferred at that time if indicated. She agrees that the patient would not receive immediate surgical intervention at this time. Dr. Coker verified that the patient is a DNR and all her labs were within normal limits last month except for her baseline anemia. Dr. Coker also discussed the plan of care with the daughter Jeremy. 06/21 13:19 Order name: Amylase, Serum pm06/21 13:19 Order name: Basic Metabolic Panel pm1 06/21 13:19 Order name: Blood Culture Adult (2) pm1 06/21 13:19 Order name: CBC with Diff pm06/21 13:19 Order name: Ckmb pm06/21 13:19 Order name: CPK pm06/21 13:19 Order name: Lactate pm06/21 13:19 Order name: LFT's pm06/21 13:19 Order name: Lipase; Complete Time: 15:01 pm06/21 22:28 Interpretation: Abnormal. la06/21 13:19 Order name: Procalcitonin; Complete Time: 14:37 pm06/21 13:19 Order name: Protime (+inr); Complete Time: 14:09 pm06/21 13:19 Order name: Ptt, Activated; Complete Time: 14:09 pm06/21 13:19 Order name: Troponin (emerg Dept Use Only); Complete Time: 15:01 pm1 06/21 13:19 Order name: Urine Microscopic Only; Complete Time: 17:48 pm1 06/21 13:19 Order name: Amylase; Complete Time: 15:01 EDMS 06/21 13:19 Order name: Basic Metabolic Panel; Complete Time: 15:01 EDMS 06/21 13:19 Order name: Blood Culture EDMS 06/21 13:19 Order name: CBC with Automated Diff; Complete Time: 14:37 EDMS 06/21 13:19 Order name: CKMB Creatine Kinase MB; Complete Time: 15:01 EDMS 06/21 13:19 Order name: Creatine Phosphokinase; Complete Time: 15:01 EDMS 06/21 13:19 Order name: Lactate; Complete Time: 14:37 EDMS 06/21 13:19 Order name: Liver (Hepatic) Function; Complete Time: 15:01 EDMS 06/21 14:05 Order name: glucometer results - FOR PT WITH NO ID iw 06/21 14:06 Order name: Glucose, Ancillary(No Armband); Complete Time: 15:55 EDMS 06/21 14:24 Order name: CBC Smear Scan; Complete Time: 14:37 EDMS 06/21 14:29 Order name: Glucose, Ancillary Testing; Complete Time: 14:37 EDMS 06/21 14:52 Order name: AMMONIA; Complete Time: 17:48 pm1 06/21 15:03 Order name: UDS; Complete Time: 17:48 pm1 06/21 16:07 Order name: Urine Dipstick--Ancillary (enter results); Complete Time: 17:48 bd 06/21 16:07 Order name: Urine --Ancillary (enter results); Complete Time: 17:48 bd 06/21 13:19 Order name: Chest Single View XRAY; Complete Time: 14:06 pm1 06/21 13:19 Order name: Accucheck; Complete Time: 14:21 pm1 06/21 13:19 Order name: Cardiac monitoring; Complete Time: 14:20 pm1 06/21 13:19 Order name: EKG - Nurse/Tech; Complete Time: 14:20 pm1 06/21 13:19 Order name: IV Saline Lock - Large Bore; Complete Time: 14:21 pm1 06/21 13:19 Order name: Labs collected and sent; Complete Time: 14:21 pm1 06/21 13:19 Order name: O2 Per Protocol; Complete Time: 14:21 pm1 06/21 13:19 Order name: O2 Sat Monitoring; Complete Time: 14:21 pm1 06/21 13:19 Order name: Urine Dipstick-Ancillary (obtain specimen); Complete Time: 16:06 pm1 06/21 13:20 Order name: CT Head Brain wo Cont; Complete Time: 13:46 pm1 06/21 14:48 Order name: Glucose Level; Complete Time: 15:23 pm1 06/21 15:27 Order name: Abdomen ; Complete Time: 15:55 EDMS 06/21 16:46 Order name: Urine Culture EDMS 06/21 20:25 Order name: CORONAVIRUS EDMS 06/21 21:13 Order name: SARS-COV-2 RT PCR; Complete Time: 21:37 EDMS Administered Medications: 13:23 CANCELLED (Patient hypoglycemic, will give D5): NS 0.9% (30 ml/kg) 30 ml/kg IV at bolus pm1 once; Sepsis Protocol 14:18 Drug: NS 0.9% 1000 ml Route: IV; Rate: 1000 ml; Site: right antecubital; iw 14:19 Drug: D5-LR 1000 ml Route: IV; Rate: 100 ml/hr; Site: right antecubital; iw 15:45 Drug: Rocephin 1 grams Route: IV; Rate: calculated rate; Site: right antecubital; iw 17:28 Drug: NS 0.9% 1000 ml Route: IV; Rate: 1000 ml; Site: right antecubital; iw Point of Care Testing: Blood Glucose: 13:18 Blood Glucose: 195 mg/dL; iw Ranges: Critical Glucose Levels:Adult <50 mg/dl or >400 mg/dl <40 mg/dl or >180 mg/dl Disposition: 06/21/20 17:01 Hospitalization ordered by Wilbert Fry for Inpatient Admission. Preliminary diagnosis are Bowel ischemia in large right sided parastomal hernia, Dehydration, Rhabdomyolysis, Acute kidney failure, Delirium due to known physiological condition, Hypoglycemia, unspecified. - Bed requested for Telemetry/MedSurg (Inpatient). - Status is Inpatient Admission. ea - Condition is Fair. - Problem is new. - Symptoms have improved. Addendum: 06/25/2020 19:28 Co-signature as Attending Physician, Fuentes Brumfield MD I agree with the assessment and t w4 plan of care. Signatures: Dispatcher [employer] EDAR Ivy Jorge RN RN mw Williams, Irene, RN RN iw Keanu Christie, AEROSPACE QUALITY ENGINEER-C AEROSPACE QUALITY ENGINEER-Cla1 Vega Dillon, HEALTH NURSE HEALTH NURSE pm1 Shirley Lockhart RN RN ea Wadley, Terrence, MD MD tw4 Corrections: (The following items were deleted from the chart) 06/21 13:23 13:19 NS 0.9% (30 ml/kg) 30 ml/kg IV at bolus once; Sepsis Protocol ordered. pm1 pm1 15:27 14:52 Abdomen W/ Con+CT.RAD.BRZ ordered. EDAR EDAR 17:01 17:01 Hospitalization Ordered by Wilbert Fry DO for Inpatient Admission. Preliminary pm1 diagnosis is Bowel ischemia in large right sided parastomal herniaDehydration; Rhabdomyolysis; Acute kidney failure; Delirium due to known physiological condition. Bed requested for Telemetry/MedSurg (Inpatient). Status is Inpatient Admission. Condition is Fair. Problem is new. Symptoms have improved. pm1 19:44 14:36 Constitutional: Negative for fever, chills, and weight loss, pm1 pm1 21:19 17:01 06/21/2020 17:01 Hospitalization Ordered by Wilbert Fry DO for Inpatient mw Admission. Preliminary diagnosis is Bowel ischemia in large right sided parastomal herniaDehydration; Rhabdomyolysis; Acute kidney failure; Delirium due to known physiological condition; Hypoglycemia, unspecified. Bed requested for Telemetry/MedSurg (Inpatient). Status is Inpatient Admission. Condition is Fair. Problem is new. Symptoms have improved. pm1 22:17 21:19 06/21/2020 17:01 Hospitalization Ordered by Wilbert Fry DO for Inpatient ea Admission. Preliminary diagnosis is Bowel ischemia in large right sided parastomal herniaDehydration; Rhabdomyolysis; Acute kidney failure; Delirium due to known physiological condition; Hypoglycemia, unspecified. Bed requested for Telemetry/MedSurg (Inpatient). Status is Inpatient Admission. Condition is Fair. Problem is new. Symptoms have improved. mw
[2020-06-21] MEDS ORDERED: ONDANSETRON 4 MG/2 ML VIAL IV PRN (20:48)
[2020-06-21] MEDS: D5 0.45 NS 1,000 ML IV SCH (20:48)
[2020-06-21] MEDS ORDERED: PIPER/TAZO/NS 3.375gm 3.375 GM/100 ML BAG IVPB ONE (21:00)
[2020-06-21] MEDS ORDERED: LORazepam 2 MG/ML VIAL ONE (21:09)
[2020-06-21] MEDS ORDERED: MORPHINE 2 MG/ML SYR ONE (21:09)
[2020-06-21] MEDS ORDERED: ONDANSETRON 4 MG/2 ML VIAL ONE (21:10)
[2020-06-21] MEDS: MORPHINE 2 MG/ML SYR IV PRN (21:17)
[2020-06-21] MEDS: LORazepam 2 MG/ML VIAL IV PRN (21:17)
[2020-06-21] MEDS ORDERED: D5 0.45 NS 1,000 ML IV ONE (21:38)
[2020-06-21] MEDS ORDERED: PIPER/TAZO/NS 3.375gm 6.750 GM/200 ML BAG ONE (21:38)
[2020-06-21 22:31] VITALS: O2SAT 99
--- NOTE | 2020-06-21 22:38 | P.HP ---
Certification for Inpatient Patient admitted to: Inpatient With expected LOS: >2 Midnights Practitioner: I am a practitioner with admitting privileges, knowledge of patient current condition, hospital course, and medical plan of care. Services: Services provided to patient in accordance with Admission requirements found in Title 42 Section 412.3 of the Code of Federal Regulations Patient History Date of Service: 06/21/20 Primary Care Provider: Dr. Coker, Onc- Dr. Coker ([facility]) Reason for admission: Ischemic bowel, severe sepsis, ARF History of Present Illness: 55-year-old female with history of primary pancreatic and colon cancer with mets to the liver, epilepsy, hypertension presents emergency department for altered mental status and hypoglycemia. Daughter who lives with patient reports that she has been having increasing altered mental status over the course of the last couple of days, patient currently receiving treatment for pancreatic and colon cancer from [facility]. Reports she has been doing well with this. Workup in the emergency department reveals acute renal failure, severe sepsis, CT demonstrates bowel ischemia suspected within bowel loops in the large right- sided peristomal hernia, small amount of portal venous air in the left lobe of the liver. Case was discussed with patient's oncologist at [facility], recommended supportive care over the course of the next 2 days and re-evaluation to determine if patient will benefit from transfer to [facility] for further intervention. Patient baseline mental status alert, oriented x4, at this time his extremely lethargic, eyes are open but not responding purposefully. Extremities noted to be cyanotic. Case was discussed at length with daughter and additional family members, patient has DNR in family wishes to honor this at this time. Family wishes to continue with IV fluids, antibiotics over the course of the next 24-48 hr. Will likely end up on hospice in the next 24-48 hr. Allergies No Known Allergies Allergy (Unverified 12/25/15 14:52) - Past Medical/Surgical History Has patient received pneumonia vaccine in the past: No -: epilepsy -: hypertension -: kidney stones -: colon cancer -: liver cancer -: Pancreatic cancer -: lithotripsy -: tonsillectomy -: hysterectomy -: colostomy Psychosocial/ Personal History: Patient currently lives at home with her daughter - Family History Family History: Reviewed- Non-Contributory - Social History Smoking Status: Unknown if ever smoked Place of Residence: Home Review of Systems is unable to be obtained Physical Examination - Vital Signs Temperature: 97.1 F Blood Pressure: 101/55 Pulse: 103 Respirations: 20 Pulse Ox (%): 99 - Physical Exam General: Oriented x1, Confused, Other (Lethargic) HEENT: Other (Mucous membranes dry) Neck: Supple Respiratory: Diminished (Bilaterally) Cardiovascular: Regular rate/rhythm, Normal S1 S2 Capillary refill: <2 Seconds Gastrointestinal: Normal bowel sounds, Other (Ostomy site in place) Musculoskeletal: No contractures, No erythema, No tenderness Integumentary: No significant lesion, No tenderness/swelling, No erythema Neurological: Other (Patient is confused, oriented x1, speech is slurred.) - Studies Laboratory Data (last 24 hrs) 06/21/20 13:40: PT 12.7 H, INR 1.10, APTT 27.3 06/21/20 13:40: WBC 4.20 L, Hgb 8.7 L, Hct 27.9 L, Plt Count 169 06/21/20 13:40: Sodium 135 L, Potassium 5.3 H, BUN 79 H, Creatinine 5.18 H*, Glucose 202 H, Total Bilirubin 0.5, AST 263 H, ALT 133 H, Alkaline Phosphatase 133 H, Amylase 14 L, Lipase < 10 L Assessment and Plan - Plan Assessment Severe sepsis with MODS secondary to ischemic bowel complicated by history of pancreatic, liver, colon cancer with ostomy in place Acute renal failure Elevated aminotransferase levels Normocytic anemia Hypocalcemia Hypertension Epilepsy Plan Severe sepsis with MODS secondary to ischemic bowel complicated by history of pancreatic, liver, colon cancer with ostomy in place: Family wishes for supportive care at this time, case was discussed with oncologist at [facility] Dr. Coker [phone]. They wish for supportive care at this time with IV fluids antibiotics, pain medication as needed. Discussed case at length with family, very poor prognosis, extremities cyanotic at this time patient confused. Family aware, will allow him to remain by bedside. Patient will likely need hospice. Acute renal failure: Nephrology consult in place, continue with hydration overnight, recheck labs in the morning. Patient will likely be on hospice. Elevated aminotransferase levels: Secondary to severe sepsis, continue to trend levels. Normocytic anemia: Likely anemia chronic disease, transfuse to maintain hemoglobin greater than 7. Hypocalcemia: Corrected calcium 7.8. Hypertension: Hold blood pressure medications at this time. Epilepsy: Appears stable at this time, will give medications as needed. Discharge Plan: Other (Hospice) Plan to discharge in: 48 Hours - Advance Directives Does patient have a Living Will: Yes Does patient have a Durable POA for Healthcare: Yes - Code Status/Comfort Care Code Status Assessed: Yes (DNR) Critical Care: No Time Spent Managing Pts Care (In Minutes): 55
[2020-06-21 23:50] VITALS: BMI 27.0
--- NOTE | 2020-06-22 01:54 | P.INFCA ---
Sepsis Focused Assessment - Focused Assessment Complete? Sepsis Focused Assessment Completed?: Yes - Sepsis Screen Result Severe Sepsis: Positive Septic Shock: Negative - Evaluation Current stage of sepsis: Severe sepsis - Vital Signs Reviewed: Yes Respiratory Rate: 20 O2 Sat by Pulse Oximetry: 99 - Examination Date exam was performed: 06/22/20 Time exam was performed: 01:54 Heart: Regular rate/rhythm Lungs: Diminished air movement Peripheral pulses: 1+ Faint Peripheral pulse location: Radial Capillary refill: <2 Seconds Skin examination: Pallor, Mottling, Other (cyanotic extremities)
[2020-06-22] MEDS: D5 0.45 NS 1,000 ML IV SCH (06:06)
[2020-06-22 06:33] LABS: Absolute Lymphocytes (CBC) 0.1 K/uL (0.7-4.9); Basophils % 0.1 % (0-1.3); Hematocrit 25.5 % (36.0-45.0); MPV 10.7 fL (7.6-11.3)
[2020-06-22 06:53] LABS: Bilirubin Total 0.4 mg/dL (0.2-1.0); Magnesium 2.4 mg/dL (1.8-2.4); Potassium 5.2 mmol/L (3.5-5.1); Protein, Total 5.4 g/dL (6.4-8.2)
--- NOTE | 2020-06-22 08:10 | P.PN ---
Subjective Date of Service: 06/22/20 Primary Care Provider: Dr. Coker, Onc- Dr. Coker ([facility]) Chief Complaint: Ischemic bowel, severe sepsis, ARF Subjective: Other (Patient remains confused. Overall stable to pain.) Physical Examination - Vital Signs Temperature: 97.8 F Blood Pressure: 86/49 Pulse: 110 Respirations: 20 Pulse Ox (%): 95 - Studies Laboratory Data (last 24 hrs) 06/21/20 13:40: PT 12.7 H, INR 1.10, APTT 27.3 06/21/20 13:40: WBC 4.20 L, Hgb 8.7 L, Hct 27.9 L, Plt Count 169 06/21/20 13:40: Sodium 135 L, Potassium 5.3 H, BUN 79 H, Creatinine 5.18 H*, Glucose 202 H, Total Bilirubin 0.5, AST 263 H, ALT 133 H, Alkaline Phosphatase 133 H, Amylase 14 L, Lipase < 10 L Assessment & Plan Discharge Plan: Other (Home hospice verses inpatient hospice) Plan to discharge in: 24 Hours Physician Review Additional Text: Impression: Severe sepsis with multiorgan failure syndrome secondary to ischemic bowel complicated by history of pancreatic/liver/colon cancer with ostomy in place Acute renal failure with metabolic acidosis, hyperkalemia secondary to above Toxic/metabolic encephalopathy related to above Elevated aminotransferase levels suspect acute liver failure related to above Normocytic anemia likely chronic Hypocalcemia Hypertension Epilepsy Plan Severe sepsis with multiorgan failure syndrome(acute renal failure/liver failure) secondary to ischemic bowel complicated by history of pancreatic/liver/colon cancer with ostomy in place: Spoke with family at length today. Family understands patient's current condition is poor. Family understands patient has been suffering with cancer. ER physician spoke to onco logist at [facility] yesterday. Oncology agrees with plan of care for possible hospice. No significant change in condition. Patient still with altered mental status. Continue with IV fluids antibiotic therapy at this time. Once the family has decided on either inpatient hospice versus home hospice then will pursue comfort measures. This was addressed in detail with the family. They are to meet with social and human services assistant here soon. Advanced care planning-30 min. Acute renal failure with metabolic acidosis, hyperkalemia secondary to above: Continue with IV fluids for now until family has decided on either inpatient hospice versus home hospice. Once a decision has been made. Will discontinue IV fluids and antibiotics for comfort measures only. Toxic/metabolic encephalopathy related to above: Continue as above Elevated aminotransferase levels suspect acute liver failure related to above: No significant improvement noted. Normocytic anemia likely chronic: Will continue to monitor closely. Hypocalcemia: Corrected calcium 7.8. Hypertension: Hold blood pressure medications at this time. Epilepsy: Provide medication as needed. Time Spent Managing Pts Care (In Minutes): 55
[2020-06-22 08:26] LABS: Anisocytosis 2+; Blood Morphology Comment NOTED (NOT SEEN); Platelet Estimate DECR; White Blood Cell Scan OK (OK)
[2020-06-22] MEDS ORDERED: INFLUENZA VACCINE (for 3y+) 0.5 ML DOSE IMVAC ONE (09:00)
[2020-06-22] MEDS ORDERED: PNEUMOCOCCAL VACCINE 0.5 ML IMVAC ONE (09:00)
[2020-06-22] MEDS ORDERED: PIPER/TAZO/NS 3.375gm 3.375 GM/100 ML BAG IVPB SCH (09:00)
[2020-06-22] MEDS: PIPER/TAZO/NS 2.25gm 2.25 GM/50 ML BAG IVPB SCH ×2 (11:06→19:53)
[2020-06-22] MEDS: LORazepam 2 MG/ML VIAL IV PRN ×3 (11:18→19:44)
--- NOTE | 2020-06-22 14:02 | P.CNS ---
Date of Consult: 06/22/20 Reason for Consult: elevated creatinine Requesting Physician: Keanu Christie Primary Care Provider: Dr. Coker, Onc- Dr. Coker ([facility]) Chief Complaint: Ischemic bowel, severe sepsis, ARF History of Present Illness: 55-year-old female with pancreatic and colon cancer with mets to the liver on chemo since 2 years at [facility] , hx of epilepsy, HTN , normal renal fucntion at baseline with cr at 1.0 1 month ago -admitted now for new onset altered mental status and hypoglycemia. -Noted with hypotension with systolic down to 90/30s in ER -CT shows bowel ischemia suspected within bowel loops in the large right-sided peristomal hernia, small amount of portal venous air in the left lobe of the liver. -workup shows elevated creatinine to 5.18 with severe hypocalcemia and met acidosis -patient remain obtunded and unable to give mroe hx -on supportive therapy now Allergies valproic acid [From Depacon] Allergy (Mild, Verified 06/21/20 23:02) Anaphylaxis Home Medications: Albuterol Sulfate [Proventil Hfa] 6.7 gm IH PRN 06/22/20 Dextroamphetamine/Amphetamine [Adderall 30 mg Tablet] 06/22/20 Diphenoxylate HCl/Atropine [Diphenoxylate-Atrop 2.5-0.025] 1 each PO 06/22/20 Escitalopram [Lexapro*] 20 mg PO 06/22/20 Eszopiclone 2 mg PO 06/22/20 Fentanyl Patch [Duragesic Patch*] 100 mcg .ROUTE PRN 06/22/20 Gabapentin 400 mg PO TID 06/22/20 Lipase/Protease/Amylase [Leonila Sparks 12,000 Units Capsule] 06/22/20 Morphine *Extended Release* [MS Contin] 30 mg PO Q12HP 06/22/20 Omeprazole/Sodium Bicarbonate [Omeprazole-Bicarb 20-1,100 Cap] 20 mg PO DAILY 06/22/20 Ondansetron HCl in 0.9 % NaCl [Ondansetron 8Mg/50Ml-0.9% NaCl] 06/22/20 Ropinirole HCl 0.25 mg PO 06/22/20 Rosuvastatin Calcium [Crestor] 10 mg PO DAILY 06/22/20 carBAMazepine [Tegretol] 200 mg PO 06/22/20 - Past Medical/Surgical History -: epilepsy -: hypertension -: kidney stones -: colon cancer -: liver cancer -: Pancreatic cancer -: lithotripsy -: tonsillectomy -: hysterectomy -: colostomy Psychosocial/ Personal History: Patient currently lives at home with her daughter - Social History Smoking Status: Unknown if ever smoked Place of Residence: Home Review of Systems is unable to be obtained (AMS) Physical Examination Temp Pulse Resp BP Pulse Ox 97.8 F 110 H 20 86/49 L 95 06/22/20 08:11 06/22/20 08:11 06/22/20 08:11 06/22/20 08:11 06/22/20 08:11 General: Delirious (minimal grunting with sternal rub ) HEENT: Atraumatic, Normocephalic Neck: Supple, 2+ carotid pulse no bruit Respiratory: Diminished, Dull Cardiovascular: Regular rate/rhythm, Normal S1 S2, Edema (1+ b/l ) Capillary refill: <2 Seconds Gastrointestinal: Normal bowel sounds, Soft and benign, Other (ileostomy insitu +), Distended, Tenderness Musculoskeletal: No clubbing, Swelling Neurological: Abnormal speech, Abnormal sensation Urinary: Little catheter Laboratory Data (last 24 hrs) 06/21/20 13:40: PT 12.7 H, INR 1.10, APTT 27.3 06/21/20 13:40: WBC 4.20 L, Hgb 8.7 L, Hct 27.9 L, Plt Count 169 06/21/20 13:40: Sodium 135 L, Potassium 5.3 H, BUN 79 H, Creatinine 5.18 H*, Glucose 202 H, Total Bilirubin 0.5, AST 263 H, ALT 133 H, Alkaline Phosphatase 133 H, Amylase 14 L, Lipase < 10 L Conclusions/Impression: JUAN FRANCISCO- due to ATN from Hypotension Hypocalcemia Metabolic Acidosis Septic Shock Bowel ischemia Shock liver Hx of Pancreatic and colon cancer s/p ileostomy Metabolic Encephalopathy Hypoglycemia PLAN - Obtina urine studies -continue aggresive IVF - will dc D51/2ns and switch to soidum bicarb gtt now - Expected elevated potassium to improved with acidosis correction -keep MAP . 70 -MONITOR 1/0 -renally dose all meds -continue emprical abx -Expected creatinine to continue to improve -Replace calcium - start calcium gluconate 2 g q8h for 6 doses -serum calcium may decrease with acidosis correction -follow mg level -obtain and replete phorphorus -dose albumin to optimize intravascular volume since LE edema -monitor BMP daily -will consult to follow Physician Review: Patient Assessed, Agree with Above Assessment and Plan Time Spent Managing Pts care (In Minutes): 70
[2020-06-22] MEDS ORDERED: FUROSEMIDE 20 MG/ 2ML VIAL IV ONE (14:09)
[2020-06-22] MEDS: CALCIUM GLUC 10% INJ 9.3 MEQ in NA CHLORIDE 0.9% 100 ML IV SCH ×2 (15:00→23:15)
[2020-06-22] MEDS: ALBUMIN HUMAN 25% 100 ML IV SCH (16:30)
[2020-06-22] MEDS: MORPHINE 2 MG/ML SYR IV PRN (18:08)
[2020-06-22] MEDS: D5W 1,000 ML with NA BICARB 8.4% 150 MEQ IV SCH ×2 (22:15)
[2020-06-23] MEDS: PIPER/TAZO/NS 2.25gm 2.25 GM/50 ML BAG IVPB SCH ×2 (01:37→09:00)
[2020-06-23] MEDS: D5W 1,000 ML with NA BICARB 8.4% 150 MEQ IV SCH ×2 (02:30)
[2020-06-23] MEDS: ALBUMIN HUMAN 25% 100 ML IV SCH (02:35)
[2020-06-23 06:09] LABS: Absolute Lymphocytes (CBC) 0.2 K/uL (0.7-4.9); Basophils % 0.1 % (0-1.3); Hematocrit 23.1 % (36.0-45.0); Lymphocytes % 3.2 % (15.3-44.8); MPV 9.9 fL (7.6-11.3); RBC Red Blood Cell Count 2.87 M/uL (3.86-4.86)
[2020-06-23 06:39] LABS: Albumin 2.1 g/dL (3.4-5.0); Bilirubin Total 0.4 mg/dL (0.2-1.0); Magnesium 2.5 mg/dL (1.8-2.4); Potassium 4.6 mmol/L (3.5-5.1); Protein, Total 5.5 g/dL (6.4-8.2)
[2020-06-23 07:14] LABS: Blood Morphology Comment NOTED (NOT SEEN); Platelet Estimate DECR; White Blood Cell Scan OK (OK)
[2020-06-23 07:15] LABS: Anisocytosis 3+
[2020-06-23] MEDS: CALCIUM GLUC 10% INJ 9.3 MEQ in NA CHLORIDE 0.9% 100 ML IV SCH (08:08)
--- NOTE | 2020-06-23 08:38 | P.DS ---
Admission Date: 06/21/20 Discharge Date: 06/23/20 Primary Care Provider: Dr. Coker, Onc- Dr. Coker ([facility]) Disposition: HOSPICE-HOME Discharge Condition: SERIOUS Reason for Admission: Ischemic bowel, severe sepsis, ARF Consultations: Nephrology-Dr. Wetzel Procedures: COVID: Negative CT Head: FINDINGS: No intracranial hemorrhage, mass, edema or shift of mid-line structures. No acute infarction changes seen. No abnormal extra-axial fluid collections. Ventricles are normal. Physiologic calcifications are present. There is asymmetry is created by head tilt within the scanner. Mastoid air cells and visualized portions of the paranasal sinuses are clear. No acute bony findings. IMPRESSION: Negative non-contrast CT head examination. No significant change from comparison. CT Scan: FINDINGS: Small areas of nodularity are present in both lung bases. Limited noncontrast assessment of the liver demonstrates no focal mass. No significant biliary dilatation. Common bile duct stent is in place.Subtle linear air densities are present in the left lobe of the liver. The spleen, pancreas and right adrenal gland are within normal limits. 17 mm left adrenal mass is present. There is a large parastomal hernia in the right lower quadrant which appears to contain small and large bowel. There is suspicion for pneumatosis is seen within bowel loops within the hernia sac inferolaterally. A large amount of stool is impacted in the rectum with rectal wall thickening to 12 mm. No free intraperitoneal air or fluid collection. Punctate stone is seen in the inferior right renal calyx. No measurable hydronephrosis seen. Cyst is present in inferoanterior left kidney. Moderate lumbosacral degenerative changes. IMPRESSION: Bowel ischemia is suspected with an bowel loops within the large right sided parastomal hernia. Small amount of portal venous air in the left lobe of the liver is suspected. Significant rectal fecal impaction. Small right renal stone without significant hydronephrosis. Small pulmonary nodules in both lung bases noted which may be related to infection or metastatic disease. CXR: FINDINGS: Lung volumes are low. No peripheral mass or consolidation. No failure or volume overload. Right-sided Port-A-Cath remains in place. Heart and vasculature are normal. No measurable pleural effusion and no pneumothorax. No acute bony abnormality seen. No acute aortic findings suspected. IMPRESSION: No acute cardiopulmonary process. No significant change from comparison study. Medical Problem List: Severe sepsis with multiorgan failure syndrome secondary to ischemic bowel complicated by history of pancreatic/liver/colon cancer with ostomy in place Acute renal failure with metabolic acidosis, hyperkalemia secondary to above Toxic/metabolic encephalopathy related to above Elevated aminotransferase levels suspect acute liver failure related to above Normocytic anemia likely chronic Hypocalcemia Hypertension Epilepsy Brief History of Present Illness: 55-year-old female with history of primary pancreatic and colon cancer with mets to the liver, epilepsy, hypertension presents emergency department for altered mental status and hypoglycemia. Daughter who lives with patient reports that she has been having increasing altered mental status over the course of the last couple of days, patient currently receiving treatment for pancreatic and colon cancer from [facility]. Workup in the emergency department reveals multiorgan failure, severe sepsis, CT demonstrates bowel ischemia suspected within bowel loops in the large right-sided peristomal hernia, small amount of portal venous air in the left lobe of the liver. Patient admitted for further evaluation. Hospital Course: Patient presented with Severe sepsis with multiorgan failure syndrome(acute renal failure/liver failure) secondary to ischemic bowel complicated by history of pancreatic/liver/colon cancer with ostomy in place. Patient was admitted for treatment. Other medical issues included acute renal failure with metabolic acidosis, hyperkalemia, toxic/metabolic encephalopathy related to severe sepsis, elevated liver function tests likely related to acute liver failure to above and anemia of chronic disease. Patient was given IV fluids and antibiotic therapy. Spoke to the family in detail concerning plan of care. Family understands patient is do not resuscitate. They understand that her condition has declined and worsened. No improvement was identified. Patient remained encephalopathic. Advanced care planning addressed in detail. Family has decided on home hospice. Hospice has been arranged. Patient will be discharge to hospice. Once discharge IV antibiotic therapy, antibiotics will be discontinued. Patient will continue with only comfort measures. Patient will be transported home today with hospice. Vital Signs/Physical Exam: Temp Pulse Resp BP Pulse Ox 99.5 F 105 H 15 82/47 L 99 06/23/20 04:00 06/23/20 04:00 06/23/20 04:00 06/23/20 04:00 06/23/20 04:00 General: Confused, Other (Minimal response to pain. Increased sedation. ) Neck: Supple Respiratory: Normal air movement Cardiovascular: Abnormal pulses (mild sinus tachycardia) Gastrointestinal: Other (slight distension. No ascites. ) Neurological: Other (extremities appear stable. No significant edema. No cyanosis. ) Laboratory Data at Discharge: WBC 7.70 K/uL (4.3-10.9) D 06/23/20 05:52 Hgb 7.6 g/dL (12.0-15.0) L* 06/23/20 05:52 Hct 23.1 % (36.0-45.0) L 06/23/20 05:52 Plt Count 89 K/uL (152-406) L D 06/23/20 05:52 PT 12.7 SECONDS (9.5-12.5) H 06/21/20 13:40 INR 1.10 06/21/20 13:40 APTT 27.3 SECONDS (24.3-36.9) 06/21/20 13:40 Sodium 143 mmol/L (136-145) 06/23/20 05:52 Potassium 4.6 mmol/L (3.5-5.1) 06/23/20 05:52 BUN 85 mg/dL (7-18) H 06/23/20 05:52 Creatinine 4.18 mg/dL (0.55-1.3) H 06/23/20 05:52 Glucose 132 mg/dL (74-106) H 06/23/20 05:52 Magnesium 2.5 mg/dL (1.8-2.4) H 06/23/20 05:52 Total Bilirubin 0.4 mg/dL (0.2-1.0) 06/23/20 05:52 AST 102 U/L (15-37) H 06/23/20 05:52 ALT 84 U/L (12-78) H 06/23/20 05:52 Alkaline Phosphatase 112 U/L (45-117) 06/23/20 05:52 Troponin I 0.06 ng/mL (0.0-0.045) H 06/21/20 23:09 Amylase 14 U/L (25-115) L 06/21/20 13:40 Lipase < 10 U/L (73-393) L 06/21/20 13:40 Home Medications: Albuterol Sulfate [Proventil Hfa] 6.7 gm IH PRN 06/22/20 Dextroamphetamine/Amphetamine [Adderall 30 mg Tablet] 06/22/20 Diphenoxylate HCl/Atropine [Diphenoxylate-Atrop 2.5-0.025] 1 each PO 06/22/20 Escitalopram [Lexapro*] 20 mg PO 06/22/20 Eszopiclone 2 mg PO 06/22/20 Fentanyl Patch [Duragesic Patch*] 100 mcg .ROUTE PRN 06/22/20 Gabapentin 400 mg PO TID 06/22/20 Lipase/Protease/Amylase [Leonila Sparks 12,000 Units Capsule] 06/22/20 Morphine *Extended Release* [MS Contin] 30 mg PO Q12HP 06/22/20 Omeprazole/Sodium Bicarbonate [Omeprazole-Bicarb 20-1,100 Cap] 20 mg PO DAILY 06/22/20 Ondansetron HCl in 0.9 % NaCl [Ondansetron 8Mg/50Ml-0.9% NaCl] 06/22/20 Ropinirole HCl 0.25 mg PO 06/22/20 Rosuvastatin Calcium [Crestor] 10 mg PO DAILY 06/22/20 carBAMazepine [Tegretol] 200 mg PO 06/22/20 Physician Discharge Instructions: Patient to be discharged on home hospice. Continue comfort measures. Diet: NPO Activity: Bedrest Followup: Unknown,U [Primary Care Provider] - Time spent managing pt's care (in minutes): 55
[2020-06-23] MEDS: MORPHINE 2 MG/ML SYR IV PRN (10:32)
[2020-06-23 12:23] VITALS: BP 92/53; TEMP 99.9
[2020-06-23] MEDS: LORazepam 2 MG/ML VIAL IV PRN (12:44)
== END 2020-06-23 14:50 | disposition hospice, home (50) | DRG 871 ==
LOC: ER 12:59 → ERHOLD 19:22 → 2ND 22:10
PROVIDERS: ADMIT Family Medicine; ATTEND Family Medicine
DX: A41.9 Sepsis, unspecified organism (principal); G92 Toxic encephalopathy; N17.0 Acute kidney failure with tubular necrosis; R65.21 Severe sepsis with septic shock; K72.00 Acute and subacute hepatic failure without coma; C78.7 Secondary malignant neoplasm of liver and intrahepatic bile duct; K55.9 Vascular disorder of intestine, unspecified; E87.2 Acidosis; C18.9 Malignant neoplasm of colon, unspecified; C25.9 Malignant neoplasm of pancreas, unspecified; E87.5 Hyperkalemia; E16.2 Hypoglycemia, unspecified; D63.8 Anemia in other chronic diseases classified elsewhere; G40.909 Epilepsy, unspecified, not intractable, without status epilepticus; E83.51 Hypocalcemia; I10 Essential (primary) hypertension; Z85.038 Personal history of other malignant neoplasm of large intestine; Z85.05 Personal history of malignant neoplasm of liver; Z90.710 Acquired absence of both cervix and uterus; Z90.49 Acquired absence of other specified parts of digestive tract; Z85.07 Personal history of malignant neoplasm of pancreas; Z66 Do not resuscitate; Z88.8 Allergy status to other drugs, medicaments and biological substances; Z20.822 Contact with and (suspected) exposure to COVID-19
CPT/HCPCS: 36415; 70450; 71045; 74176; 80048; 80053; 80076; 80307; 81003; 81015; 81025; 82140; 82150; 82550; 82553; 82570; 82947; 83605; 83690; 83735; 84145; 84300; 84484; 85025; 85610; 85730; 87040; 87077; 87086; 87088; 87186; 93005; 96374; 99291; 99292; J0610; J0696; J1940; J2270; J2405; J2543; J7030; J7121; J7799; P9047; U0003